=== PATIENT | female | born 1935 | race African-American/Black ===

== ENCOUNTER 2017-10-17 20:17 | Inpatient (IN) | payer MEDICARE, OTHER ==
--- NOTE | 2017-10-17 20:27 | ER Document Report ---
ED Medical Screen (RME) - General Chief Complaint: Weakness, Speech slurred- resolved Stated Complaint: WEAKNESS Time Seen by Provider: 10/17/17 20:25 Notes: 81-year-old female patient was talking on the phone when her left side became weak. She was having difficulty holding the phone. She noted that her speech seemed to get garbled. She dropped the phone and went and took an aspirin. The symptoms lasted maybe 1 or 2 minutes and then began to resolve. At this time she is back to baseline. She states she is seen enough people who had strokes to know what was happening and that she needed to come to the hospital. I have greeted and performed a rapid initial assessment of this patient. A comprehensive ED assessment and evaluation of the patient, analysis of test results and completion of the medical decision making process will be conducted by additional ED providers. TRAVEL OUTSIDE OF THE [place] IN LAST 30 DAYS: No - Related Data Allergies/Adverse Reactions: No Known Allergies Allergy (Unverified 10/17/17 20:25)
--- NOTE | 2017-10-17 20:42 | RADIOLOGY REPORT (SQ) ---
EXAM DESCRIPTION: CT HEAD WITHOUT COMPLETED DATE/TIME: 10/17/2017 8:34 pm REASON FOR STUDY: TIA COMPARISON: 05/09/2016. TECHNIQUE: Axial images acquired through the brain without intravenous contrast. Images reviewed wi th bone, brain and subdural windows. Additional sagittal and coronal reconstructions were generated. Images stored on PACS. All CT scanners at this facility use dose modulation, iterative reconstruction, and/or weight based d osing when appropriate to reduce radiation dose to as low as reasonably achievable (ALARA). [facility]: Dose Right [facility]: CareDose [facility]: Dose Right [facility]: Teradose 4D [facility]: Smart Lighter [employer] RADIATION DOSE: CT Rad equipment meets quality standard of care and radiation dose reduction techniq ues were employed. CTDIvol: 53.2 mGy. DLP: 937 mGy-cm. mGy. LIMITATIONS: None. FINDINGS: VENTRICLES: Prominent. CEREBRUM: No masses. No hemorrhage. No midline shift. Areas of low density in the white matter mos t likely due to chronic micro-vascular ischemic change. No evidence for acute infarction. CEREBELLUM: No masses. No hemorrhage. No alteration of density. No evidence for acute infarction. EXTRAAXIAL SPACES: Mild age-related involutional change. No fluid collections. No masses. ORBITS AND GLOBE: No intra- or extraconal masses. Normal contour of globe without masses. CALVARIUM: No fracture. PARANASAL SINUSES: No fluid or mucosal thickening. SOFT TISSUES: No mass or hematoma. OTHER: No other significant finding. IMPRESSION: MILD CHRONIC CHANGES OF ATROPHY AND MICROVASCULAR ISCHEMIA. NO ACUTE PROCESS. EVIDENCE OF ACUTE STROKE: NO. TECHNICAL DOCUMENTATION: JOB ID: [id number] Quality ID # [id number]: Final reports with documentation of one or more dose reduction techniques (e.g., Au tomated exposure control, adjustment of the mA and/or kV according to patient size, use of iterative reconstruction technique) 2010 [employer])- All Rights Reserved Reading location - IP/workstation name: [email or web address]
--- NOTE | 2017-10-17 21:03 | ER Document Report ---
ED Neuro Symptoms/Deficit - General Chief Complaint: Weakness, Speech slurred- resolved Stated Complaint: WEAKNESS Time Seen by Provider: 10/17/17 20:25 Notes: History of complain-81 years old pleasant female with a history of hypertension , was talking on the phone holding the phone on the left hand. She felt like a flush coming through the whole of her left side of the body, then she dropped the phone and then tried to grain picker the phone she could not coordinate and could not get the strength to grain picker and her speech was slurred, she kept the phone down before that asked the brother to come in and take her to the hospital. Took an aspirin and came to the ER. The symptoms lasted only about maximum 3 minutes and completely came around to herself. Currently feeling comfortable REVIEW OF SYSTEMS: CONSTITUTIONAL : Denies fever, chills, or sweats. Denies recent illness. EENT: Denies eye, ear, throat, or mouth pain or symptoms. Denies nasal or sinus congestion or discharge. Denies throat, tongue, or mouth swelling or difficulty swallowing. CARDIOVASCULAR: Denies chest pain. Denies palpitations or racing or irregular heart beat. Denies ankle edema. RESPIRATORY: Denies cough, cold, or chest congestion. Denies shortness of breath, difficulty breathing, or wheezing. GASTROINTESTINAL: Denies abdominal pain or distention. Denies nausea, vomiting , or diarrhea. Denies blood in vomitus, stools, or per rectum. Denies black, tarry stools. Denies constipation. GENITOURINARY: Denies difficulty urinating, painful urination, burning, frequency, blood in urine, or discharge. FEMALE GENITOURINARY: Denies vaginal bleeding, heavy or abnormal periods, irregular periods. Denies vaginal discharge or odor. MUSCULOSKELETAL: Denies back or neck pain or stiffness. Denies joint pain or swelling. SKIN: Denies rash, lesions or sores. HEMATOLOGIC : Denies easy bruising or bleeding. LYMPHATIC: Denies swollen, enlarged glands. NEUROLOGICAL: Denies confusion or altered mental status. Denies passing out or loss of consciousness. Denies dizziness or lightheadedness. Denies headache. Denies weakness or paralysis or loss of use of either side. Denies problems with gait or speech. Denies sensory loss, numbness, or tingling. Denies seizures. PSYCHIATRIC: Denies anxiety or stress. Denies depression, suicidal ideation, or homicidal ideation. ALL OTHER SYSTEMS REVIEWED AND NEGATIVE. PHYSICAL EXAMINATION: GENERAL: Well-appearing, well-nourished and in no acute distress. HEAD: Atraumatic, normocephalic. EYES: Pupils equal round and reactive to light, extraocular movements intact, conjunctiva are normal. ENT: Nares patent, oropharynx clear without exudates. Moist mucous membranes. NECK: Normal range of motion, supple without lymphadenopathy LUNGS: Breath sounds clear to auscultation bilaterally and equal. No wheezes rales or rhonchi. HEART: Regular rate and rhythm without murmurs ABDOMEN: Soft, nontender, nondistended abdomen. No guarding, no rebound. No masses appreciated. Female : deferred Musculoskeletal: Normal range of motion, no pitting or edema. No cyanosis. NEUROLOGICAL: Cranial nerves grossly intact. Normal speech, normal gait. Normal sensory, motor exams. No pronator drift, no cranial weakness noted. No focal neurological deficit. PSYCH: Normal mood, normal affect. SKIN: Warm, Dry, normal turgor, no rashes or lesions noted. Dictation was performed using [employer] voice recognition software TRAVEL OUTSIDE OF THE [place] IN LAST 30 DAYS: No - HPI Patient complains to provider of: Paresthesia, Speech Impairment, Weakness Onset: Just prior to arrival Awoke with symptoms: Yes Symptoms are: No: Constant, Intermittent episodes, Worse/persistent, Noted on awakening Duration: Better Quality of pain: denies: No pain, Achy, Burning, Cramping, Dull, Fullness, Pressure, Sharp, Stabbing, Throbbing, Other Severity: Mild Pain Level: 0 Context: denies: None, Insect bite, Tick bite, Falling, Head injury, Other Loss of consciousness: No: No loss of consciousness, Unsure, Dazed, Brief ( seconds), Prolonged (minutes), Still comatose Baseline Cognitive: Alert, oriented X 3. No: Alert but disoriented, Alert but confused, Poor alertness, Memory loss, Unknown Baseline Gait: Walks w/o assistance - Related Data Allergies/Adverse Reactions: No Known Allergies Allergy (Unverified 10/17/17 20:25) Past Medical History - General Information source: Patient - Social History Smoking Status: Never Smoker Frequency of alcohol use: None Drug Abuse: None Lives with: Family Family History: Reviewed & Not Pertinent - Medical History Medical History: Negative - Past Medical History Cardiac Medical History: Reports: Hx Hypertension Denies: None, Hx Atrial Fibrillation, Hx Congestive Heart Failure, Hx Coronary Artery Disease, Hx DVT, Hx Heart Attack, Hx Hypercholesterolemia, Hx Peripheral Vascular Disease, Hx Pulmonary Embolism, Hx Heart Murmur, Other Pulmonary Medical History: Denies: None, Hx Asthma, Hx Bronchitis, Hx COPD, Hx Pneumonia, Hx Intubation , Hx Respiratory Failure, Hx Sleep Apnea, Hx Tuberculosis, Other Review of Systems - Review of Systems Notes: As per history of complain Physical Exam - Vital signs Vitals: Temp Pulse Resp BP 98.8 F 51 L 16 209/66 H 10/17/17 20:26 10/17/17 20:26 10/17/17 20:26 10/17/17 20:26 Course - Re-evaluation Re-evalutation: 10/17/17 23:10 The case was discussed with Dr. Marsh and currently being admitted - Vital Signs Vital signs: Temp Pulse Resp BP Pulse Ox 98.8 F 51 L 16 209/66 H 10/17/17 20:26 10/17/17 20:26 10/17/17 20:26 10/17/17 20:26 - Laboratory Result Diagrams: 10/17/17 20:56 10/17/17 20:56 - Diagnostic Test Radiology reviewed: Reports reviewed - CT of the head as well as chest x-ray reported by radiologist was reviewed ED [employer]/Exc Criteria - Date/Time patient last known well: Date/Time: Not indicated due to complete resolution - Inclusion Criteria: 1: Patient presented to ED within 3 hours of acute ischemic stroke symptom onset ? 2: Did baseline CT exclude intracranial hemorrhage and/or other risk factors? 3: Is the age of the patient 18 years of age or greater? : If any of the above questions are answered "NO" then stop, patient is not a candidate for Alteplase, : If all of the above questions are answered "YES" then continue with Exclusion Criteria. - Exclusion Criteria: 1: Is there evidence of intracranial hemorrhage on baseline CT? 2: Is there suspicion of subarachnoid hemorrhage (even if CT negative)? 3: Is there a history of serious head trauma, recent previous stroke or DE within 3 months? 4: Does the patient have a clinical presentation consistent with DE or post-DE pericarditis? 5: Is there history of intracranial hemorrhage? 6: On repeated measurement is Systolic BP greater than 185mmHg or Diastolic BP greater that 110 mmHg and is aggressive treatment needed to reduce blood pressure to these limits (e.g. constant infusion of an anti-hypertensive)? 7: Did the patient awake with stroke symptoms? 8: Has the patient had a lumbar puncture or an arterial puncture at a non- compressile site within 7 days? 9: With in the last 14 days did the patient have surgery or major trauma? 10: Is the patient or less than 2 weeks? 11: Was there any active bleeding or acute trauma? 12: Does the patient have intracranial neoplasm, arteriovenous malformation or aneurysm? 13: Does the patient have abnormal glucose (less than 50 or greater than 400mg/ dl)? Record glucose in Comment. 14: Patient has rapidly improving symptoms at the time Alteplase is to be Administered. 15: Does the patient have any risks for bleeding, including but not limited to: a.: Current use of Coumadin with PT greater than 15 seconds or INR greater than 1.7. b.: Current use of Pradaxa (Dabigatran). c.: Heparin administereed within the past 48 hours and PTT elevated. d.: Platelet count less than 100,000/mm. e.: Major surgery or serious trauma within 14 days. f.: Gastrointestinal or gynecological urinary bleeding within 14 days. g.: Myocardial Infarction (DE) within 3 months. : If the answer to any of the above questions is "YES" then stop, the patient is not a candidate for Alteplase. : If the answer to all of the above questions is "NO" then the patient may be eligible for the Administration of Alteplase. : If the patient is noted to have seizure activity at onset of Stroke symptoms; Consult Neurologist for further evaluation. - The patient is: -: Included and is eligible to receive Alteplase. *Initiate bed placement at higher level of care* Reviewd risks & benefits of thrombolytic therapy: I have reviewed the risks and benefits of thrombolytic therapy with the patient and/or his/her family. -: Excluded and not eligible to receive Alteplase for the above exclusions. -: Excluded and not eligible to receive Alteplase for other reasons (specify in comments): - Diagnosis of TIA: -: Patient presented with transient symptoms that are now resolved and no other neurologic findings are currently present. List symptoms in comments. -: Patient is NOT a candidate for tPA. -: ____(put name in comment) has been consulted for admission and continued evaluation of risk factor assessment. Discharge - Discharge Clinical Impression: TIA (transient ischemic attack) Qualifiers: Transient cerebral ischemia type: unspecified Qualified Code(s): G45.9 - Transient cerebral ischemic attack, unspecified Condition: Fair Disposition: ADMITTED INPATIENT Admitting Provider: [facility] Unit Admitted: Telemetry Referrals: TANI MARSH MD [Primary Care Provider] - Follow up as needed
[2017-10-17 21:16] LABS: ABSOLUTE EOSINOPHILS # (AUTO) 0.2 10^3/uL (0.0-0.6); ABSOLUTE LYMPHOCYTES (AUTO) 2.5 10^3/uL (0.5-4.7); ABSOLUTE MONOCYTES (AUTO) 0.7 10^3/uL (0.1-1.4); ABSOLUTE NEUT (AUTO) 3.4 10^3/uL (1.7-8.2); BASOPHILS % (AUTO) 0.5 % (0-2); EOSINOPHILS % (AUTO) 2.5 % (0-6); HEMATOCRIT 34.6 % (36.0-47.0); HEMOGLOBIN 11.4 g/dL (12.0-15.5); LYMPHOCYTES % (AUTO) 35.9 % (13-45); MEAN CORPUSCULAR HEMOGLOBIN 28.3 pg (27.0-33.4); MEAN CORPUSCULAR HGB CONC 32.9 g/dL (32.0-36.0); MEAN CORPUSCULAR VOLUME 86 fl (80-97); MONOCYTES % (AUTO) 10.5 % (3-13); PLATELET COUNT 279 10^3/uL (150-450); RED BLOOD COUNT 4.02 10^6/uL (3.72-5.28); RED CELL DISTRIBUTION WIDTH 16.1 % (11.5-14.0); SEGMENTED NEUTROPHILS % (AUTO) 50.6 % (42-78); TOTAL CELLS COUNTED % (AUTO) 100 %; WHITE BLOOD COUNT 6.8 10^3/uL (4.0-10.5)
[2017-10-17 21:37] LABS: ALANINE AMINOTRANSFERASE 10 U/L (9-52); ALBUMIN 4.3 g/dL (3.5-5.0); ALKALINE PHOSPHATASE 52 U/L (38-126); ANION GAP 13 (5-19); ASPARTATE AMINO TRANSFERASE 22 U/L (14-36); BILIRUBIN,DIRECT 0.2 mg/dL (0.0-0.4); BILIRUBIN,TOTAL 0.2 mg/dL (0.2-1.3); BLOOD UREA NITROGEN 17 mg/dL (7-20); CALCIUM 10.1 mg/dL (8.4-10.2); CARBON DIOXIDE 26 mmol/L (22-30); CHLORIDE 104 mmol/L (98-107); CREATINE KINASE 124 U/L (30-135); GLUCOSE 100 mg/dL (75-110); POTASSIUM 3.8 mmol/L (3.6-5.0); SODIUM 142.5 mmol/L (137-145); TOTAL PROTEIN 8.1 g/dL (6.3-8.2)
[2017-10-17 21:47] LABS: CREATINE KINASE MB 1.18 ng/mL (<4.55)
[2017-10-17 21:51] LABS: TROPONIN I < 0.012 ng/mL
--- NOTE | 2017-10-17 21:51 | RADIOLOGY REPORT (SQ) ---
EXAM DESCRIPTION: CHEST SINGLE VIEW COMPLETED DATE/TIME: 10/17/2017 8:40 pm REASON FOR STUDY: TIA COMPARISON: 12/22/2014. EXAM PARAMETERS: NUMBER OF VIEWS: One view. TECHNIQUE: Single frontal radiographic view of the chest acquired. RADIATION DOSE: NA LIMITATIONS: None. FINDINGS: LUNGS AND PLEURA: No opacities, masses or pneumothorax. No pleural effusion. MEDIASTINUM AND HILAR STRUCTURES: No masses. Contour normal. HEART AND VASCULAR STRUCTURES: Mild cardiac enlargement. Normal vasculature. BONES: No acute findings. HARDWARE: None in the chest. OTHER: No other significant finding. IMPRESSION: STABLE MILD CARDIOMEGALY. NO ACUTE RADIOGRAPHIC FINDING IN THE CHEST. TECHNICAL DOCUMENTATION: JOB ID: [id number] [employer]- All Rights Reserved Reading location - IP/workstation name: [email or web address]
[2017-10-18 01:50] LABS: APPEARANCE,URINE CLEAR; BILIRUBIN,URINE NEGATIVE (NEGATIVE); COLOR,URINE STRAW; GLUCOSE, URINE NEGATIVE (NEGATIVE); KETONES,URINE NEGATIVE (NEGATIVE); LEUKOCYTE ESTERASE,URINE NEGATIVE (NEGATIVE); NITRITE,URINE NEGATIVE (NEGATIVE); PROTEIN,URINE 100 mg/dL (NEGATIVE); URINE SPECIFIC GRAVITY 1.005; UROBILINOGEN,URINE NEGATIVE mg/dL (<2.0)
[2017-10-18] MEDS: NORMAL SALINE 1000 ML 1,000 ML IV PRN ×2 (02:15→06:52)
--- NOTE | 2017-10-18 03:42 | RADIOLOGY REPORT (SQ) ---
EXAM DESCRIPTION: CTA HEAD CLINICAL HISTORY: 81 years Female, STROKE SYMPTOMS COMPARISON: None. TECHNIQUE: IV contrast. Multiplanar reformat. This exam was performed according to our departmental dose-optimization program, which includes automated exposure control, adjustment of the mA and/or kV according to patient size and/or use of iterative reconstruction technique. FINDINGS: CTA, head: Intact [employer] [place] [employer] [place]. Mild calcified atherosclerosis of the carotid siphon bilaterally. No occlusion, no aneurysm, and no additional vasculitides. IMPRESSION: No acute findings.
--- NOTE | 2017-10-18 03:42 | RADIOLOGY REPORT (SQ) ---
EXAM DESCRIPTION: CTA HEAD (accession [id number]), MRI HEAD COMBO (accession [id number]) CLINICAL HISTORY: 81 years Female, STROKE SYMPTOMS COMPARISON: None. TECHNIQUE: IV contrast. Multiplanar reformat. This exam was performed according to our departmental dose-optimization program, which includes automated exposure control, adjustment of the mA and/or kV according to patient size and/or use of iterative reconstruction technique. FINDINGS: CT, head without and with contrast: Mild white matter microangiopathy. Atherosclerosis. No enhancement abnormality. No hemorrhage or infarct. No mass, mass effect, or midline shift. Extra-axial structures appear otherwise grossly intact. CTA, head: Intact [place] [facility] [place]. Mild calcified atherosclerosis of the carotid siphon bilaterally. IMPRESSION: No acute findings.
[2017-10-18 04:32] LABS: ABSOLUTE BASOPHILS # (AUTO) 0.1 10^3/uL (0.0-0.2); ABSOLUTE EOSINOPHILS # (AUTO) 0.2 10^3/uL (0.0-0.6); ABSOLUTE LYMPHOCYTES (AUTO) 2.7 10^3/uL (0.5-4.7); ABSOLUTE MONOCYTES (AUTO) 0.6 10^3/uL (0.1-1.4); ABSOLUTE NEUT (AUTO) 3.7 10^3/uL (1.7-8.2); BASOPHILS % (AUTO) 0.8 % (0-2); EOSINOPHILS % (AUTO) 2.5 % (0-6); HEMATOCRIT 31.9 % (36.0-47.0); HEMOGLOBIN 10.7 g/dL (12.0-15.5); LYMPHOCYTES % (AUTO) 37.2 % (13-45); MEAN CORPUSCULAR HEMOGLOBIN 29.1 pg (27.0-33.4); MEAN CORPUSCULAR HGB CONC 33.7 g/dL (32.0-36.0); MEAN CORPUSCULAR VOLUME 87 fl (80-97); MONOCYTES % (AUTO) 8.9 % (3-13); PLATELET COUNT 230 10^3/uL (150-450); RED BLOOD COUNT 3.69 10^6/uL (3.72-5.28); RED CELL DISTRIBUTION WIDTH 16.2 % (11.5-14.0); SEGMENTED NEUTROPHILS % (AUTO) 50.6 % (42-78); TOTAL CELLS COUNTED % (AUTO) 100 %; WHITE BLOOD COUNT 7.3 10^3/uL (4.0-10.5)
[2017-10-18 04:53] LABS: ALANINE AMINOTRANSFERASE 24 U/L (9-52); ALBUMIN 3.8 g/dL (3.5-5.0); ALKALINE PHOSPHATASE 52 U/L (38-126); ANION GAP 10 (5-19); ASPARTATE AMINO TRANSFERASE 19 U/L (14-36); BILIRUBIN,DIRECT 0.3 mg/dL (0.0-0.4); BILIRUBIN,TOTAL 0.3 mg/dL (0.2-1.3); BLOOD UREA NITROGEN 13 mg/dL (7-20); CALCIUM 9.5 mg/dL (8.4-10.2); CARBON DIOXIDE 24 mmol/L (22-30); CHLORIDE 109 mmol/L (98-107); CREATINE KINASE 104 U/L (30-135); GLUCOSE 100 mg/dL (75-110); POTASSIUM 3.7 mmol/L (3.6-5.0); SODIUM 143.3 mmol/L (137-145); TOTAL PROTEIN 7.2 g/dL (6.3-8.2)
[2017-10-18 05:03] LABS: CREATINE KINASE MB 1.04 ng/mL (<4.55)
[2017-10-18 05:09] LABS: TROPONIN I < 0.012 ng/mL
--- NOTE | 2017-10-18 07:26 | EKG REPORT ---
SEVERITY:- ABNORMAL ECG - SINUS BRADYCARDIA FIRST DEGREE AV BLOCK PROBABLE ANTEROSEPTAL INFARCT, AGE INDETERM : Confirmed by: Cl Pena MD 18-Oct-2017 07:26:28
[2017-10-18] MEDS ORDERED: DEXTROSE 50%-WATER 25 GM/50 ML DISP.SYRIN IV PRN ×2 (07:29)
[2017-10-18] MEDS ORDERED: INSULIN LISPRO 100 UNIT/ML 3 ML VIAL SUBCUT PRN (07:29)
[2017-10-18] MEDS ORDERED: DEXTROSE 40% GEL 15 GM TUBE PO PRN ×2 (07:29)
[2017-10-18] MEDS ORDERED: GLUCAGON,HUMAN RECOMB 1 MG INJ IM PRN (07:29)
[2017-10-18] MEDS ORDERED: ATORVASTATIN CALCIUM 20 MG TABLET PO SCH ×2 (07:29)
--- NOTE | 2017-10-18 08:22 | PDOC H&P ---
History of Present Illness Admission Date/PCP: 10/17/17 23:47 TANI MARSH MD Patient complains of: Left-sided weakness History of Present Illness: NAREN TERRY is a 81 year old female This is a 81-year-old female with the history of the type 2 diabetes mellitus with recent A1c is 5.9 with the history of the hyperlipidemia with recent LDL is 79 and a history of congestive heart failure and history of dementia and arthritis and hypertension came to the emergency departmentWith a sudden onset of the left-sided weakness with unable to hold the cup in the whole left side feeling weird and not feeling any sensationsAnd emergency department patient initial CT of the head was negative and patient's other blood work was stable and ER physician thinks possible TIA and admitting for the stroke protocol in the hospital Overnight nurses notice the patient have a more left-sided little bit more weakness little bit slower speech and CT angiogram was done and a repeat CT scan of the head was done was all stable When I saw the patient patient is currently doing well alert awake and oriented patients move all 4 extremity denied any visual problem denied any headache denied any dizziness Patient with no focal neurological weakness at this point Patient's heart rate is running in the lower end patient is currently taking the beta-meagan metoprolol 50 mg twice a day Patient had a last echo was done in 2 years back was all stable within normal EF with some mild diastolic dysfunctions and MRI of the head was done in the past was all stable Patient have underlying mild dementia currently taking the Aricept Past Medical History Cardiac Medical History: Reports: Congestive Heart Failure, Hyperlipidema, Hypertension Denies: None, Atrial Fibrillation, Coronary Artery Disease, DVT, Myocardial Infarction, Peripheral Vascular Disease, Pulmonary Embolism, Heart Murmur, Other Pulmonary Medical History: Denies: None, Asthma, Bronchitis, Chronic Obstructive Pulmonary Disease (COPD ), Intubation, Pneumonia, Respiratory Failure, Sleep Apnea, Tuberculosis, Other Endocrine Medical History: Reports: Diabetes Mellitus Type 2 Renal/ Medical History: Reports: Chronic Kidney Disease GI Medical History: Reports: Gastroesophageal Reflux Disease Musculoskeltal Medical History: Reports: Arthritis Hematology: Reports: Anemia Past Surgical History Past Surgical History: Reports: Hysterectomy, Orthopedic Surgery Social History Lives with: Family Smoking Status: Never Smoker Frequency of Alcohol Use: None Hx Recreational Drug Use: No Hx Prescription Drug Abuse: No Family History Family History: Reviewed & Not Pertinent Parental Family History Reviewed: Yes Children Family History Reviewed: Yes Sibling(s) Family History Reviewed.: Yes Medication/Allergy Allergies/Adverse Reactions: No Known Allergies Allergy (Unverified 10/17/17 20:25) Review of Systems Constitutional: PRESENT: weakness. ABSENT: chills, fever(s), headache(s), weight gain, weight loss Eyes: ABSENT: visual disturbances Ears: ABSENT: hearing changes Cardiovascular: ABSENT: chest pain, dyspnea on exertion, edema, orthropnea, palpitations Respiratory: ABSENT: cough, hemoptysis Gastrointestinal: ABSENT: abdominal pain, constipation, diarrhea, hematemesis, hematochezia, nausea, vomiting Genitourinary: ABSENT: dysuria, hematuria Musculoskeletal: ABSENT: joint swelling Integumentary: ABSENT: rash, wounds Neurological: PRESENT: paresthesias, weakness. ABSENT: abnormal gait, abnormal speech, confusion, dizziness, focal weakness, syncope Psychiatric: ABSENT: anxiety, depression, homidical ideation, suicidal ideation Endocrine: ABSENT: cold intolerance, heat intolerance, menstrual abnormalities, polydipsia, polyuria Hematologic/Lymphatic: ABSENT: easy bleeding, easy bruising, lymphadenopathy Physical Exam Vital Signs: Temp Pulse Resp BP Pulse Ox 97.4 F 47 L 16 170/50 H 98 10/18/17 03:37 10/18/17 06:45 10/18/17 03:37 10/18/17 03:37 10/18/17 03:37 Intake & Output 10/17/17 10/18/17 10/19/17 06:59 06:59 06:59 Intake Total 1100 Output Total 300 Balance 800 Weight 76.1 kg General appearance: PRESENT: no acute distress, well-developed, well-nourished Head exam: PRESENT: atraumatic, normocephalic Eye exam: PRESENT: conjunctiva pink, EOMI, PERRLA. ABSENT: scleral icterus Ear exam: PRESENT: normal external ear exam Mouth exam: PRESENT: moist, tongue midline Neck exam: PRESENT: full ROM. ABSENT: carotid bruit, JVD, lymphadenopathy, thyromegaly Respiratory exam: PRESENT: clear to auscultation slava Cardiovascular exam: PRESENT: RRR. ABSENT: diastolic murmur, rubs, systolic murmur Pulses: PRESENT: normal dorsalis pedis pul, +2 pedal pulses bilateral Vascular exam: PRESENT: normal capillary refill GI/Abdominal exam: PRESENT: normal bowel sounds, soft. ABSENT: distended, guarding, mass, organolmegaly, rebound, tenderness Rectal exam: PRESENT: deferred Extremities exam: ABSENT: pedal edema Neurological exam: PRESENT: alert, awake, oriented to person, oriented to place , oriented to time, oriented to situation, reflexes normal, CN II-XII grossly intact. ABSENT: motor sensory deficit Psychiatric exam: PRESENT: appropriate affect, normal mood. ABSENT: homicidal ideation, suicidal ideation Skin exam: PRESENT: dry, intact, warm. ABSENT: cyanosis, rash Results Laboratory Results: 10/18/17 04:17 10/18/17 03:30 10/18/17 10/18/17 03:30 04:17 WBC 7.3 RBC 3.69 L Hgb 10.7 L Hct 31.9 L MCV 87 MCH 29.1 MCHC 33.7 RDW 16.2 H Plt Count 230 Seg Neutrophils % 50.6 Lymphocytes % 37.2 Monocytes % 8.9 Eosinophils % 2.5 Basophils % 0.8 Absolute Neutrophils 3.7 Absolute Lymphocytes 2.7 Absolute Monocytes 0.6 Absolute Eosinophils 0.2 Absolute Basophils 0.1 Sodium 143.3 Potassium 3.7 Chloride 109 H Carbon Dioxide 24 Anion Gap 10 BUN 13 Creatinine 0.83 Est GFR ( Amer) > 60 Est GFR (Non-Af Amer) > 60 Glucose 100 Calcium 9.5 Total Bilirubin 0.3 AST 19 ALT 24 Alkaline Phosphatase 52 Total Protein 7.2 Albumin 3.8 10/18/17 10/18/17 03:30 04:17 Creatine Kinase 104 CK-MB (CK-2) 1.04 Troponin I < 0.012 Impressions: Chest X-Ray 10/17/17 00:00 IMPRESSION: STABLE MILD CARDIOMEGALY. NO ACUTE RADIOGRAPHIC FINDING IN THE CHEST. Head CT 10/17/17 20:25 IMPRESSION: MILD CHRONIC CHANGES OF ATROPHY AND MICROVASCULAR ISCHEMIA. NO ACUTE PROCESS. EVIDENCE OF ACUTE STROKE: NO. Head MRI 10/17/17 23:16 IMPRESSION: No acute findings. Head CTA 10/18/17 00:00 IMPRESSION: No acute findings. Assessment & Plan - Diagnosis (1) Acute cerebrovascular accident Is this a current diagnosis for this admission?: Yes Plan: Currently putting the patient on the stroke protocol continues aspirin Plavix and high-dose of statin and get the MRI of the head today (2) Hypertension Qualifiers: Hypertension type: essential hypertension Qualified Code(s): I10 - Essential (primary) hypertension Is this a current diagnosis for this admission?: Yes Plan: Due to the acute events of the stroke hold the blood pressure medications (3) Hyperlipidemia Qualifiers: Hyperlipidemia type: unspecified Qualified Code(s): E78.5 - Hyperlipidemia , unspecified Is this a current diagnosis for this admission?: Yes Plan: Patient's taking the simvastatin at home will increase the Lipitor 80 mg p.o. daily (4) Congestive heart failure Qualifiers: Heart failure type: diastolic Heart failure chronicity: chronic Qualified Code(s): I50.32 - Chronic diastolic (congestive) heart failure Is this a current diagnosis for this admission?: Yes Plan: Scheduled echocardiogram today (5) Bradycardia Is this a current diagnosis for this admission?: Yes Plan: We hold the beta-meagan consult the cardiology (6) Dementia Qualifiers: Dementia type: unspecified type Dementia behavioral disturbance: without behavioral disturbance Qualified Code(s): F03.90 - Unspecified dementia without behavioral disturbance Is this a current diagnosis for this admission?: Yes Plan: Continues to Aricept (7) Type 2 diabetes mellitus Qualifiers: Diabetes mellitus advisory application developer insulin use: without advisory application developer use Is this a current diagnosis for this admission?: Yes Plan: Continues to sliding scaleSince recent A1c is 5.9 - Time Time Spent: 50 to 70 Minutes Medications reviewed and adjusted accordingly: Yes Anticipated discharge: Home Within: Other - Inpatient Certification Medical Necessity: Need Close Monitoring Due to Risk of Patient Decompensation, Need For IV Fluids Post Hospital Care: D/C Grain Handler Documentation - Plan Summary Plan Summary: Continues with the stroke protocol discussed with the patient's family patient' s niece and her sister regarding the patient's current conditions continue to monitor for next 48 hours for the possible of the stroke patient is currently maximized treatments
[2017-10-18] MEDS: CLOPIDOGREL BISULFATE 75 MG TABLET PO SCH (09:39)
[2017-10-18] MEDS: FAMOTIDINE 20 MG TABLET PO SCH ×2 (09:39→22:35)
[2017-10-18] MEDS: ENOXAPARIN SODIUM INJ 40 MG/0.4 ML DISP.SYRIN SUBCUT SCH (09:40)
[2017-10-18] MEDS ORDERED: ASPIRIN 81 MG TABLET, ENT COATED PO SCH (10:00)
--- NOTE | 2017-10-18 10:54 | RADIOLOGY REPORT (SQ) ---
EXAM DESCRIPTION: MRI HEAD WITHOUT; MRA HEAD WITHOUT COMPLETED DATE/TIME: 10/18/2017 9:25 am REASON FOR STUDY: tia COMPARISON: CT brain 10/18/2017, 10/17/2017 MRI brain 05/09/2016 TECHNIQUE: Multiplanar imaging includes non-contrasted T1, T2, FLAIR, and diffusion with ADC map seq uences. Images stored on PACS. 3D [place] MRA exam was performed without contrast. Source data and maximum intensity projected images were reviewed. LIMITATIONS: Rapid sequences were used, to minimize motion artifact. There is ferromagnetic artifac t over the inferior frontal and anterior temporal regions on some of the pulse sequences from [employer] work FINDINGS: ANATOMY: No developmental anomalies. Normal vascular flow voids. Pituitary fossa normal. CSF SPACES: Normal in size and contour. No hemorrhage. CEREBRUM: Sulci and gyri normal in size and contour. Mild to moderate spotty increased bifrontal and biparietal white matter signal on FLAIR imaging from chronic small vessel ischemic change. No evide nce of acute hemorrhage, mass, or extraaxial fluid collection. No MRI evidence of acute ischemic sha nge on diffusion-weighted images. POSTERIOR FOSSA: Minimal stable pontine small vessel ischemic change, with increased signal on FLAIR images. No acute hemorrhage. No edema, masses or mass effect. Internal auditory canals, cerebello-po ntine angles, mastoids normal. DIFFUSION IMAGING: Negative for acute or sub-acute infarction. ORBITS: No masses. Globes post cataract surgery. PARANASAL SINUSES: No fluid levels. Mucosa normal. [place] MRA: NO [place] STENOSIS, VASCULAR MALFORMATION, OR ANEURYSM. No other si gnificant finding. IMPRESSION: MILD SMALL VESSEL ISCHEMIC CHANGE IN THE RIVKA AND HEMISPHERIC WHITE MATTER, CHRONIC. NO MR EVIDENCE OF ACUTE ISCHEMIC CHANGE UNREMARKABLE [place] MRA EXAM. EVIDENCE OF ACUTE STROKE: NO TECHNICAL DOCUMENTATION: JOB ID: [id number] [employer]- All Rights Reserved Reading location - IP/workstation name: [email or web address]
--- NOTE | 2017-10-18 10:54 | RADIOLOGY REPORT (SQ) ---
EXAM DESCRIPTION: MRI HEAD WITHOUT; MRA HEAD WITHOUT COMPLETED DATE/TIME: 10/18/2017 9:25 am REASON FOR STUDY: tia COMPARISON: CT brain 10/18/2017, 10/17/2017 MRI brain 05/09/2016 TECHNIQUE: Multiplanar imaging includes non-contrasted T1, T2, FLAIR, and diffusion with ADC map seq uences. Images stored on PACS. 3D [place] MRA exam was performed without contrast. Source data and maximum intensity projected images were reviewed. LIMITATIONS: Rapid sequences were used, to minimize motion artifact. There is ferromagnetic artifac t over the inferior frontal and anterior temporal regions on some of the pulse sequences from [employer] work FINDINGS: ANATOMY: No developmental anomalies. Normal vascular flow voids. Pituitary fossa normal. CSF SPACES: Normal in size and contour. No hemorrhage. CEREBRUM: Sulci and gyri normal in size and contour. Mild to moderate spotty increased bifrontal and biparietal white matter signal on FLAIR imaging from chronic small vessel ischemic change. No evide nce of acute hemorrhage, mass, or extraaxial fluid collection. No MRI evidence of acute ischemic sha nge on diffusion-weighted images. POSTERIOR FOSSA: Minimal stable pontine small vessel ischemic change, with increased signal on FLAIR images. No acute hemorrhage. No edema, masses or mass effect. Internal auditory canals, cerebello-po ntine angles, mastoids normal. DIFFUSION IMAGING: Negative for acute or sub-acute infarction. ORBITS: No masses. Globes post cataract surgery. PARANASAL SINUSES: No fluid levels. Mucosa normal. [place] MRA: NO [place] STENOSIS, VASCULAR MALFORMATION, OR ANEURYSM. No other si gnificant finding. IMPRESSION: MILD SMALL VESSEL ISCHEMIC CHANGE IN THE RIVKA AND HEMISPHERIC WHITE MATTER, CHRONIC. NO MR EVIDENCE OF ACUTE ISCHEMIC CHANGE UNREMARKABLE [place] MRA EXAM. EVIDENCE OF ACUTE STROKE: NO TECHNICAL DOCUMENTATION: JOB ID: [id number] [employer]- All Rights Reserved Reading location - IP/workstation name: [email or web address]
[2017-10-18 11:18] LABS: CREATINE KINASE MB 0.93 ng/mL (<4.55)
[2017-10-18 11:24] LABS: TROPONIN I < 0.012 ng/mL
--- NOTE | 2017-10-18 13:57 | EKG REPORT ---
SEVERITY:- ABNORMAL ECG - SINUS BRADYCARDIA ATRIAL PREMATURE COMPLEX FIRST DEGREE AV BLOCK MINIMAL ST DEPRESSION, DIFFUSE LEADS : Confirmed by: Cl Pena MD 18-Oct-2017 13:56:54
--- NOTE | 2017-10-18 16:01 | RADIOLOGY REPORT (SQ) ---
EXAM DESCRIPTION: CAROTID DOPPLER COMPLETED DATE/TIME: 10/18/2017 3:38 pm REASON FOR STUDY: tia COMPARISON: Carotid Doppler 05/23/2016 CT brain 10/17/2017, 10/18/2017 MRI brain MRA exam [place] 10/18/2017 TECHNIQUE: Grayscale ultrasound, Doppler velocity and spectra, and color Doppler images acquired of the extra-cranial carotid and vertebral arteries. Images stored on PACS. LIMITATIONS: None. FINDINGS: RIGHT CAROTID CCA Velocities: Within normal limits. ICA Velocities Peak systolic 0.63 m/s. End diastolic 0.8 m/s. Proximal ICA/CCA peak systolic ratio 1.2 separate. Mixed calcific and noncalcific plaque at the carotid bifurcation. No flow significant stenosis by ve locity criteria, right proximal ICA. LEFT CAROTID CCA Velocities: Within normal limits. ICA Velocities Peak systolic 0.92 m/s. End diastolic 0.15 m/s. Proximal ICA/CCA peak systolic ratio 2.2. Moderate mixed calcific and noncalcific plaque at the left carotid bifurcation is present with less t zamor[place] 50% stenosis by direct vessel diameter measurement and velocity. VERTEBRAL ARTERIES: Antegrade flow. Normal waveforms. SUBCLAVIAN ARTERIES: Not evaluated OTHER: No other significant finding. IMPRESSION: No flow significant stenosis at the carotid bifurcations. Antegrade pulsatile vertebral artery flow bilaterally. COMMENT: Quality ID #[id number]: Velocity criteria are extrapolated from the diameter data as defined by [place] Society of Radiologists in Ultrasound Consensus Conference. Radiology 2003: 229; 340-346. TECHNICAL DOCUMENTATION: JOB ID: [id number] [employer]- All Rights Reserved Reading location - IP/workstation name: [facility]
[2017-10-18 17:08] LABS: CREATINE KINASE MB 0.87 ng/mL (<4.55)
[2017-10-18 17:09] LABS: TROPONIN I < 0.012 ng/mL
[2017-10-18] MEDS: ACETAMINOPHEN 325 MG TABLET PO PRN (18:28)
--- NOTE | 2017-10-18 18:38 | XCELERA REPORT ---
[address] [address] Transthoracic Echocardiogram Report Name: NAREN TERRY Age: 81 yrs Gender: Female : 1935 Patient Status: Inpatient Patient Location: [address] [place] [address] Study Date: 10/18/2017 02:28 PM Height: 64 in Weight: 168 lb BSA: 1.8 m2 Procedure: A complete two-dimensional transthoracic echocardiogram was performed (2D, M-mode, spectral and color flow Doppler). The study was technically adequate with some images being suboptimal in quality. Reason For Study: tia Ordering Physician: TANI MARSH Performed By: Lashay Miller Interpretation Summary The left ventricular ejection fraction is normal. Doppler measurements suggest pseudonormalized left ventricular relaxation, which is associated with grade II/IV or mild to moderate diastolic dysfunction There is mild concentric left ventricular hypertrophy. The left ventricle is grossly normal size. Not all wall segments were well visualized. The right ventricle is grossly normal size. The right ventricular systolic function is normal. The right atrium is normal in size Borderline left atrial enlargement. There is a moderate amount of mitral regurgitation There is no mitral valve stenosis. There is a trace amount of aortic regurgitation There is no aortic valve stenosis There is a mild amount of tricuspid regurgitation There is mild to moderate pulmonary hypertension by echo Right ventricular systolic pressure is estimated to be elevated at 40- 50mmHg. The aortic root is not well visualized but is probably normal size. The inferior vena cava appeared normal and decreased < 50% with respiration (RAP 10-15 mmHg) There is no pericardial effusion. No definite cardiac source of CVA/TIA noted on this particular trans- thoracic study. Consider NA if clinically indicated. May consider mobile cardiac telemetry monitoring (MCT) for ruling out transient AFIB. MMode/2D Measurements & Calculations RVDd: 3.3 cm LVIDd: 4.7 cm FS: 40.6 % Ao root diam: 2.4 cm IVSd: 0.99 cm LVIDs: 2.8 cm EDV(Teich): 103.6 ml LVPWd: 0.99 cm ESV(Teich): 29.7 ml Ao root area: 4.7 cm2 EF(Teich): 71.3 % LA dimension: 3.4 cm Doppler Measurements & Calculations MV E max bebe: MV P1/2t max bebe: Ao V2 max: LV V1 max P.0 cm/sec 113.0 cm/sec 186.8 cm/sec 6.7 mmHg MV A max bebe: MV P1/2t: 86.7 msec Ao max PG: LV V1 max: 83.4 cm/sec 14.0 mmHg 129.3 cm/sec MV E/A: 1.3 MVA(P1/2t): 2.5 cm2 MV dec slope: 381.7 cm/sec2 MV dec time: 0.28 sec PA V2 max: TR max bebe: 109.6 cm/sec 293.2 cm/sec PA max PG: TR max P.4 mmHg 4.8 mmHg Left Ventricle The left ventricle is grossly normal size. There is mild concentric left ventricular hypertrophy. The left ventricular ejection fraction is normal. Doppler measurements suggest pseudonormalized left ventricular relaxation, which is associated with grade II/IV or mild to moderate diastolic dysfunction. Not all wall segments were well visualized. Right Ventricle The right ventricle is grossly normal size. There is normal right ventricular wall thickness. The right ventricular systolic function is normal. Atria The right atrium is normal in size. Borderline left atrial enlargement. Interarterial septum not well visualized and not well dopplered. Cannot comment on ASD/PFO presence. Mitral Valve The mitral valve is grossly normal. There is no mitral valve stenosis. There is a moderate amount of mitral regurgitation. Aortic Valve The aortic valve is mildly calcified. The aortic valve is trileaflet. There is no aortic valve stenosis. There is a trace amount of aortic regurgitation. Tricuspid Valve The tricuspid valve is not well visualized, but is grossly normal. There is no tricuspid stenosis. There is a mild amount of tricuspid regurgitation. There is mild to moderate pulmonary hypertension by echo. Right ventricular systolic pressure is estimated to be elevated at 40-50mmHg. Pulmonic Valve The pulmonic valve is not well visualized. Great Vessels The aortic root is not well visualized but is probably normal size. The inferior vena cava appeared normal and decreased < 50% with respiration (RAP 10-15 mmHg). Effusions There is no pericardial effusion. Incidental Findings No definite cardiac source of CVA/TIA noted on this particular trans- thoracic study. Consider NA if clinically indicated. May consider mobile cardiac telemetry monitoring (MCT) for ruling out transient AFIB. : TANI MARSH > Alejandro Zheng
[2017-10-18] MEDS ORDERED: ONDANSETRON HCL INJ/PF 4 MG/2 ML SDV ONE (19:20)
--- NOTE | 2017-10-18 20:09 | PDOC CONSULTATION ---
Consultation Consult Date: 10/18/17 Attending physician:: TANI PEDERSON Consult reason:: Transient ischemic attack, bradycardia History of Present Illness Admission Date/PCP: 10/17/17 23:47 TANI PEDERSON MD Patient complains of: Transient ischemic attack, speech difficulty History of Present Illness: NAREN TERRY is a 81 year old female with the history of the type 2 diabetes mellitus with recent A1c is 5.9 with the history of the hyperlipidemia with recent LDL is 79 and a history of congestive heart failure and history of dementia and arthritis and hypertension came to the emergency departmentWith a sudden onset of the left-sided weakness with unable to hold the cup in the whole left side feeling weird and not feeling any sensations. And emergency department patient initial CT of the head was negative and patient's other blood work was stable and ER physician thinks possible TIA and admitting for the stroke protocol in the hospital Overnight nurses notice the patient have a more left-sided little bit more weakness little bit slower speech and CT angiogram was done and a repeat CT scan of the head was done was all stable When I saw the patient patient is currently doing well alert awake and oriented patients move all 4 extremity denied any visual problem denied any headache denied any dizziness Patient with no focal neurological weakness at this point Patient's heart rate is running in the lower end patient is currently taking the beta-meagan metoprolol 50 mg twice a day Patient had a last echo was done in 2 years back was all stable within normal EF with some mild diastolic dysfunctions and MRI of the head was done in the past was all stable Patient have underlying mild dementia currently taking the Aricept. This history obtained by Dr. Pederson was reviewed and confirmed with the patient. Patient denied any chest pain. She denied any palpitations, syncope, near syncope. Patient denied any history of seizure disorder. Patient claims that he had sudden onset episodes of left upper extremity weakness and speech difficulty where her speech got jumbled up. This deficit was transient and patient recovered quite quickly. Other evaluation performed were reviewed. This morning on telemetry monitoring patient was noted to have heart rate in the high 40s and low 50s with occasional to frequent ventricular ectopy. Patient's medications were reviewed. Past Medical History Cardiac Medical History: Reports: Congestive Heart Failure, Hyperlipidema, Hypertension Denies: None, Atrial Fibrillation, Coronary Artery Disease, DVT, Myocardial Infarction, Peripheral Vascular Disease, Pulmonary Embolism, Heart Murmur, Other Pulmonary Medical History: Denies: None, Asthma, Bronchitis, Chronic Obstructive Pulmonary Disease (COPD ), Intubation, Pneumonia, Respiratory Failure, Sleep Apnea, Tuberculosis, Other Endocrine Medical History: Reports: Diabetes Mellitus Type 2 Renal/ Medical History: Reports: Chronic Kidney Disease GI Medical History: Reports: Gastroesophageal Reflux Disease Musculoskeltal Medical History: Reports: Arthritis Hematology: Reports: Anemia Past Surgical History Past Surgical History: Reports: Hysterectomy, Orthopedic Surgery Social History Information Source: Patient Lives with: Family Smoking Status: Never Smoker Frequency of Alcohol Use: None Hx Recreational Drug Use: No Hx Prescription Drug Abuse: No - Advance Directive Resuscitation Status: Full Code Surrogate healthcare decision maker:: Patient's daughter is the surrogate decision-maker Family History Family History: DM, Hypertension Parental Family History Reviewed: Yes Children Family History Reviewed: Yes Sibling(s) Family History Reviewed.: Yes Medication/Allergy Home Medications: Bisacodyl [Dulcolax 5 Mg Tablet] 5 mg PO DAILYP PRN 10/18/17 Celecoxib [Celebrex 200 mg Capsule] 200 mg PO DAILY MDD STOP DATE 11/22/1710/18 Donepezil HCl [Aricept] 5 mg PO QHS 10/18/17 Furosemide [Lasix 20 mg Tablet] 20 mg PO DAILY 10/18/17 Levocetirizine Dihydrochloride [Xyzal] 5 mg PO QPM 10/18/17 Metoprolol Tartrate [Lopressor 50 mg Tablet] 50 mg PO Q12 10/18/17 Nifedipine [Nifedipine ER] 30 mg PO Q12 10/18/17 Omeprazole 20 mg PO DAILY 10/18/17 Simvastatin [Zocor 80 mg Tablet] 80 mg PO QHS 10/18/17 Sitagliptin Phosphate [Januvia] 100 mg PO DAILY 10/18/17 Telmisartan [Micardis 20 mg Tablet] 20 mg PO DAILY 10/18/17 Zolpidem Tartrate [Ambien 5 mg Tablet] 5 mg PO QHS 10/18/17 Allergies/Adverse Reactions: No Known Allergies Allergy (Unverified 10/17/17 20:25) Review of Systems Review of Systems: Please see history of present illness and past medical history as wall. Constitutional: No fever or chills reported. Head : No recent chronic headaches, recent head injury. Eyes: No recent eye pain, diplopia, redness, discharge, acute visual changes. Ears: No recent chronic ear pain, acute hearing loss, ear discharge. Oral cavity: No recent ulcerations, bleeding, oral cavity discomfort. Neck: No recent acute neck pain reported. Hematologic: No recent easy bruising or bleeding or hematologic malignancy reported. Lymphatic: No recent lymphatic malignancy, chronic lymphadenopathy reported yet Cardiovascular system review: See history of present illness. Respiratory system review: No recent chronic cough, hemoptysis, blood clots in the lungs reported. Mild Shortness of breath on exertion Gastrointestinal system review: Negative for any recent acute or chronic abdominal pain, hematemesis, melena, recent change in bowel habits. Genitourinary system review: No recent acute or chronic hematuria, flank pain, UTI etc. reported. Skin system review: Negative for any recent abnormal bruising, no rash, no pruritus reported. Neurologic: No prior history of strokes, mini strokes, seizure disorder. Recent admission with TIA. History of dementia. Psychologic: No history of major psychosis or major depression reported. Musculoskeletal: Minor aches and pains reported. No acute joint swelling reported. Endocrine: No recent polyuria, polydipsia, recent heat or cold intolerance. Physical Exam Vital Signs: Temp Pulse Resp BP Pulse Ox 97.4 F 63 18 164/56 H 98 10/18/17 15:13 10/18/17 19:00 10/18/17 16:00 10/18/17 16:00 10/18/17 16:00 Intake & Output 10/17/17 10/18/17 10/19/17 06:59 06:59 06:59 Intake Total 1100 1124 Output Total 300 900 Balance 800 224 Weight 76.1 kg Exam: GENERAL: well-nourished and in no acute distress. Alert and oriented x3 HEAD: Atraumatic, normocephalic. EYES: Pupils equal round and reactive to light, extraocular movements intact, sclera anicteric, conjunctiva are normal. ENT: TMs normal, nares patent, oropharynx clear without exudates. Moist mucous membranes. No oral ulcerations or bleeding gums noted NECK: supple without lymphadenopathy. Trachea is central. No cervical or axillary lymphadenopathy noted. Carotids are 2+, JVD WNL LUNGS: Respiration seems nonlabored, no significant accessory muscle action noted. Breath sounds clear to auscultation bilaterally and equal noted. No wheezes rales or rhonchi noted. No significant dullness noted on percussion. CHEST: Palpation of the chest wall shows no significant chest wall tenderness. No other significant abnormalities noted. 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 ABDOMEN: Soft, no significant tenderness appreciated, normoactive bowel sounds. No guarding, no rebound. No rigidity noted . No masses appreciated. EXTREMITIES: Pedal pulses are 1-2+, no calf tenderness noted. No clubbing or cyanosis. negative pedal edema noted NEUROLOGICAL: Focused neurological exam showed no significant neurologic deficit. Normal speech, no focal weakness appreciated. PSYCH: Normal mood, normal affect. Judgment and insight within normal limits. SKIN: No significant ecchymosis, skin is noted to be warm. MUSCULOSKELETAL EXAM: No significant acute joint swelling noted. Results Laboratory Results: 10/18/17 04:17 10/18/17 03:30 10/18/17 10/18/17 03:30 04:17 WBC 7.3 RBC 3.69 L Hgb 10.7 L Hct 31.9 L MCV 87 MCH 29.1 MCHC 33.7 RDW 16.2 H Plt Count 230 Seg Neutrophils % 50.6 Lymphocytes % 37.2 Monocytes % 8.9 Eosinophils % 2.5 Basophils % 0.8 Absolute Neutrophils 3.7 Absolute Lymphocytes 2.7 Absolute Monocytes 0.6 Absolute Eosinophils 0.2 Absolute Basophils 0.1 Sodium 143.3 Potassium 3.7 Chloride 109 H Carbon Dioxide 24 Anion Gap 10 BUN 13 Creatinine 0.83 Est GFR ( Amer) > 60 Est GFR (Non-Af Amer) > 60 Glucose 100 Calcium 9.5 Total Bilirubin 0.3 AST 19 ALT 24 Alkaline Phosphatase 52 Total Protein 7.2 Albumin 3.8 10/18/17 10/18/17 10/18/17 03:30 04:17 10:39 Creatine Kinase 104 100 CK-MB (CK-2) 1.04 Troponin I < 0.012 10/18/17 10/18/17 10/18/17 10:39 16:20 16:20 Creatine Kinase 100 CK-MB (CK-2) 0.93 0.87 Troponin I < 0.012 < 0.012 EKG Comments: Sinus rhythm with minor nonspecific T-wave changes. Occasional APCs noted Impressions: Chest X-Ray 10/17/17 00:00 IMPRESSION: STABLE MILD CARDIOMEGALY. NO ACUTE RADIOGRAPHIC FINDING IN THE CHEST. Head CT 10/17/17 20:25 IMPRESSION: MILD CHRONIC CHANGES OF ATROPHY AND MICROVASCULAR ISCHEMIA. NO ACUTE PROCESS. EVIDENCE OF ACUTE STROKE: NO. Brain MRI with MRA 10/17/17 23:16 IMPRESSION: MILD SMALL VESSEL ISCHEMIC CHANGE IN THE RIVKA AND HEMISPHERIC WHITE MATTER, CHRONIC. NO MR EVIDENCE OF ACUTE ISCHEMIC CHANGE UNREMARKABLE [place] MRA EXAM. EVIDENCE OF ACUTE STROKE: NO Carotid Doppler Study 10/18/17 00:00 IMPRESSION: No flow significant stenosis at the carotid bifurcations. Antegrade pulsatile vertebral artery flow bilaterally. Head CTA 10/18/17 00:00 IMPRESSION: No acute findings. Head MRI 10/18/17 00:00 IMPRESSION: MILD SMALL VESSEL ISCHEMIC CHANGE IN THE RIV[place] AND HEMISPHERIC WHITE MATTER, CHRONIC. NO MR EVIDENCE OF ACUTE ISCHEMIC CHANGE UNREMARKABLE [place] MRA EXAM. EVIDENCE OF ACUTE STROKE: NO Assessment & Plan - Diagnosis (1) TIA (transient ischemic attack) Qualifiers: Transient cerebral ischemia type: unspecified Qualified Code(s): G45.9 - Transient cerebral ischemic attack, unspecified Is this a current diagnosis for this admission?: Yes (2) Bradycardia Is this a current diagnosis for this admission?: Yes (3) Dementia Qualifiers: Dementia type: unspecified type Dementia behavioral disturbance: without behavioral disturbance Qualified Code(s): F03.90 - Unspecified dementia without behavioral disturbance Is this a current diagnosis for this admission?: Yes (4) Hyperlipidemia Qualifiers: Hyperlipidemia type: unspecified Qualified Code(s): E78.5 - Hyperlipidemia , unspecified Is this a current diagnosis for this admission?: Yes (5) Hypertension Qualifiers: Hypertension type: essential hypertension Qualified Code(s): I10 - Essential (primary) hypertension Is this a current diagnosis for this admission?: Yes (6) Type 2 diabetes mellitus 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 Exact etiology of TIA not clear but includes cardiac dysrhythmia, micro emboli from carotid vessels, transient atrial fibrillation, transient hypoglycemia, severe hypertension or transient hypotension, transient hypoxemia etc. At this point agree with cardiac monitoring. Agree with lowering dose of beta-meagan. Would recommend event monitoring as an outpatient. 2D echo results reviewed. Carotid imaging and brain imaging studies were all reviewed. Bradycardia: Patient was noted to have mild bradycardia. Currently asymptomatic. Need to observe overnight again. Will consider event monitoring as an outpatient. Dementia: Currently stable. May consider switching patient from Aricept to Namenda. Hyperlipidemia: Currently is stable. Continue atorvastatin at current dose. Type 2 diabetes: Consider checking a glycohemoglobin to make sure patient is not having intermittent transient hypoglycemia. - Time Time Spent: 30 to 50 Minutes - CODE STATUS was discussed, patient remains full code. Surrogate decision-maker unchanged. Multiple medical problems were addressed. More than 50% of the time spent coordinating care, discussing management plans with involved caregivers. Management plans discussed with involved personnels. Medical decision making was of moderate to high complexity , patient's has multiple comorbidities. As usual I thank Dr. Pederson very much for the kind referral. Medications reviewed and adjusted accordingly: Yes
[2017-10-18] MEDS ORDERED: ONDANSETRON HCL INJ/PF 4 MG/2 ML SDV IV PRN (20:28)
--- NOTE | 2017-10-18 20:44 | RADIOLOGY REPORT (SQ) ---
EXAM DESCRIPTION: CT ABD/PELVIS NO ORAL OR IV COMPLETED DATE/TIME: 10/18/2017 8:17 pm REASON FOR STUDY: left sided abdominal pain COMPARISON: None. TECHNIQUE: CT scan of the abdomen and pelvis performed without intravenous or oral contrast. Images reviewed with lung, soft tissue, and bone windows. Reconstructed coronal and sagittal MPR images revi ewed. All images stored on PACS. All CT scanners at this facility use dose modulation, iterative reconstruction, and/or weight based d osing when appropriate to reduce radiation dose to as low as reasonably achievable (ALARA). [facility]: Dose Right [facility]: CareDose [facility]: Dose Right [facility]: Teradose 4D [facility]: Smart [employer] Global RADIATION DOSE: CT Rad equipment meets quality standard of care and radiation dose reduction techniq ues were employed. CTDIvol: 8.1 mGy. DLP: 412 mGy-cm.mGy. LIMITATIONS: None. FINDINGS: LOWER CHEST: No significant findings. No nodules or infiltrates. NON-CONTRASTED LIVER, SPLEEN, ADRENALS: Evaluation limited by lack of IV contrast. No identified sign ificant masses. PANCREAS: No masses. No peripancreatic inflammatory changes. GALLBLADDER: Contrast in the gallbladder. RIGHT KIDNEY AND URETER: No suspicious masses. Assessment limited by lack of IV contrast. No signif icant calcifications. No hydronephrosis. Contrast in the collecting system. LEFT KIDNEY AND URETER: No suspicious masses. Assessment limited by lack of IV contrast. No signifi cant calcifications. No hydronephrosis. Contrast in the collecting system. AORTA AND RETROPERITONEUM: No aneurysm. No retroperitoneal masses or adenopathy. BOWEL AND PERITONEAL CAVITY: No obvious masses or inflammatory changes. No free fluid. APPENDIX: Normal. PELVIS, BLADDER, AND ABDOMINAL WALL:Contrast in the bladder. BONES: Degenerative changes. OTHER: No other significant finding. IMPRESSION: NO SIGNIFICANT OR ACUTE PROCESS IN THE ABDOMEN OR PELVIS. COMMENT: Quality ID # [id number]: Final reports with documentation of one or more dose reduction techniques (e.g., Automated exposure control, adjustment of the mA and/or kV according to patient size, use of iterative reconstruction technique) TECHNICAL DOCUMENTATION: JOB ID: [id number] [employer]- All Rights Reserved Reading location - IP/workstation name: [email or web address]
[2017-10-18] MEDS ORDERED: MAG HYDROX/AL HYDROX/SIMETH SUSP 30 ML UDCUP PO PRN (21:55)
[2017-10-18] MEDS ORDERED: ATORVASTATIN CALCIUM 40 MG TABLET PO SCH (22:00)
[2017-10-18] MEDS ORDERED: ACETAMINOPHEN 325 MG TABLET PO ONE (22:30)
[2017-10-18] MEDS: DONEPEZIL HCL 5 MG TABLET PO SCH (22:35)
[2017-10-19] MEDS ORDERED: POLYETHYLENE GLYCOL 3350 POWDER 17 GM/1 PACKET PO PRN (00:13)
[2017-10-19] MEDS ORDERED: POLYETHYLENE GLYCOL 3350 POWDER 17 GM/1 PACKET PO ONE (00:15)
[2017-10-19] MEDS: NORMAL SALINE 1000 ML 1,000 ML IV PRN ×2 (02:40→23:09)
[2017-10-19 05:07] LABS: ABSOLUTE LYMPHOCYTES (AUTO) 1.5 10^3/uL (0.5-4.7); ABSOLUTE MONOCYTES (AUTO) 0.6 10^3/uL (0.1-1.4); ABSOLUTE NEUT (AUTO) 8.1 10^3/uL (1.7-8.2); BASOPHILS % (AUTO) 0.4 % (0-2); EOSINOPHILS % (AUTO) 0.1 % (0-6); HEMATOCRIT 33.5 % (36.0-47.0); HEMOGLOBIN 11.3 g/dL (12.0-15.5); LYMPHOCYTES % (AUTO) 14.8 % (13-45); MEAN CORPUSCULAR HGB CONC 33.8 g/dL (32.0-36.0); MEAN CORPUSCULAR VOLUME 86 fl (80-97); MONOCYTES % (AUTO) 6.3 % (3-13); PLATELET COUNT 227 10^3/uL (150-450); RED CELL DISTRIBUTION WIDTH 15.6 % (11.5-14.0); SEGMENTED NEUTROPHILS % (AUTO) 78.4 % (42-78); TOTAL CELLS COUNTED % (AUTO) 100 %; WHITE BLOOD COUNT 10.3 10^3/uL (4.0-10.5)
[2017-10-19 05:37] LABS: ALANINE AMINOTRANSFERASE 67 U/L (9-52); ALBUMIN 4.3 g/dL (3.5-5.0); ALKALINE PHOSPHATASE 57 U/L (38-126); ANION GAP 16 (5-19); ASPARTATE AMINO TRANSFERASE 132 U/L (14-36); BILIRUBIN,DIRECT 0.4 mg/dL (0.0-0.4); BILIRUBIN,TOTAL 0.5 mg/dL (0.2-1.3); BLOOD UREA NITROGEN 11 mg/dL (7-20); CALCIUM 9.9 mg/dL (8.4-10.2); CARBON DIOXIDE 22 mmol/L (22-30); CHLORIDE 100 mmol/L (98-107); GLUCOSE 130 mg/dL (75-110); POTASSIUM 3.7 mmol/L (3.6-5.0); SODIUM 137.7 mmol/L (137-145)
--- NOTE | 2017-10-19 08:21 | PDOC PROGRESS REPORT ---
Subjective Progress Note for:: 10/19/17 Subjective:: Patient is complaining of left-sided abdominal pain and the patient's positive bowel movement also and even the patient's was giving the MiraLAX and Colace and Maalox and patient still not getting better According to the patient's something stuck on the left side Patient's denied any chest pain denied any shortness of the breath Denied any weakness CT abdomen pelvis without contrast yesterday was done was all stable Patient MRI and MRA of the head was all stable Patient seen by the cardiology currently all stable Reason For Visit: TIA Physical Exam Vital Signs: Temp Pulse Resp BP Pulse Ox 98.9 F 68 12 140/60 H 99 10/19/17 03:57 10/19/17 06:48 10/19/17 03:57 10/19/17 04:15 10/19/17 03:57 Intake & Output 10/18/17 10/19/17 10/20/17 06:59 06:59 06:59 Intake Total 1100 2144 Output Total 300 1300 Balance 800 844 Weight 76.1 kg 77.6 kg General appearance: PRESENT: no acute distress, well-developed, well-nourished Head exam: PRESENT: atraumatic, normocephalic Eye exam: PRESENT: conjunctiva pink, EOMI, PERRLA. ABSENT: scleral icterus Ear exam: PRESENT: normal external ear exam Mouth exam: PRESENT: moist, tongue midline Neck exam: PRESENT: full ROM. ABSENT: carotid bruit, JVD, lymphadenopathy, thyromegaly Respiratory exam: PRESENT: clear to auscultation slava Cardiovascular exam: PRESENT: RRR. ABSENT: diastolic murmur, rubs, systolic murmur Pulses: PRESENT: normal dorsalis pedis pul, +2 pedal pulses bilateral Vascular exam: PRESENT: normal capillary refill GI/Abdominal exam: PRESENT: normal bowel sounds, soft. ABSENT: distended, guarding, mass, organolmegaly, rebound, tenderness Rectal exam: PRESENT: deferred Extremities exam: ABSENT: pedal edema Musculoskeletal exam: PRESENT: ambulatory Neurological exam: PRESENT: alert, awake, oriented to person, oriented to place , oriented to time, oriented to situation, CN II-XII grossly intact. ABSENT: motor sensory deficit Psychiatric exam: PRESENT: appropriate affect, normal mood. ABSENT: homicidal ideation, suicidal ideation Skin exam: PRESENT: dry, intact, warm. ABSENT: cyanosis, rash Results Laboratory Results: 10/19/17 04:37 10/19/17 04:37 10/19/17 10/19/17 04:37 04:37 WBC 10.3 RBC 3.90 Hgb 11.3 L Hct 33.5 L MCV 86 MCH 29.0 MCHC 33.8 RDW 15.6 H Plt Count 227 Seg Neutrophils % 78.4 H Lymphocytes % 14.8 Monocytes % 6.3 Eosinophils % 0.1 Basophils % 0.4 Absolute Neutrophils 8.1 Absolute Lymphocytes 1.5 Absolute Monocytes 0.6 Absolute Eosinophils 0.0 Absolute Basophils 0.0 Sodium 137.7 Potassium 3.7 Chloride 100 Carbon Dioxide 22 Anion Gap 16 BUN 11 Creatinine 1.02 Est GFR ( Amer) > 60 Est GFR (Non-Af Amer) 52 L Glucose 130 H Calcium 9.9 Total Bilirubin 0.5 AST 132 H ALT 67 H Alkaline Phosphatase 57 Total Protein 8.0 Albumin 4.3 10/18/17 10/18/17 10/18/17 03:30 04:17 10:39 Creatine Kinase 104 100 CK-MB (CK-2) 1.04 Troponin I < 0.012 10/18/17 10/18/17 10/18/17 10:39 16:20 16:20 Creatine Kinase 100 CK-MB (CK-2) 0.93 0.87 Troponin I < 0.012 < 0.012 Impressions: Chest X-Ray 10/17/17 00:00 IMPRESSION: STABLE MILD CARDIOMEGALY. NO ACUTE RADIOGRAPHIC FINDING IN THE CHEST. Head CT 10/17/17 20:25 IMPRESSION: MILD CHRONIC CHANGES OF ATROPHY AND MICROVASCULAR ISCHEMIA. NO ACUTE PROCESS. EVIDENCE OF ACUTE STROKE: NO. Brain MRI with MRA 10/17/17 23:16 IMPRESSION: MILD SMALL VESSEL ISCHEMIC CHANGE IN THE RIVKA AND HEMISPHERIC WHITE MATTER, CHRONIC. NO MR EVIDENCE OF ACUTE ISCHEMIC CHANGE UNREMARKABLE [place] MRA EXAM. EVIDENCE OF ACUTE STROKE: NO Abdomen/Pelvis CT 10/18/17 00:00 IMPRESSION: NO SIGNIFICANT OR ACUTE PROCESS IN THE ABDOMEN OR PELVIS. Carotid Doppler Study 10/18/17 00:00 IMPRESSION: No flow significant stenosis at the carotid bifurcations. Antegrade pulsatile vertebral artery flow bilaterally. Head CTA 10/18/17 00:00 IMPRESSION: No acute findings. Head MRI 10/18/17 00:00 IMPRESSION: MILD SMALL VESSEL ISCHEMIC CHANGE IN THE RIVKA AND HEMISPHERIC WHITE MATTER, CHRONIC. NO MR EVIDENCE OF ACUTE ISCHEMIC CHANGE UNREMARKABLE [place] MRA EXAM. EVIDENCE OF ACUTE STROKE: NO Assessment & Plan - Diagnosis (1) Acute cerebrovascular accident Is this a current diagnosis for this admission?: Yes Plan: Patient so far so all test is negative most likely a TIA continues to current medications (2) Hypertension Qualifiers: Hypertension type: essential hypertension Qualified Code(s): I10 - Essential (primary) hypertension Is this a current diagnosis for this admission?: Yes Plan: On the nifedipine and increase the losartan continues to hold the beta-meagan due to the low heart rate (3) Hyperlipidemia Qualifiers: Hyperlipidemia type: unspecified Qualified Code(s): E78.5 - Hyperlipidemia , unspecified Is this a current diagnosis for this admission?: Yes Plan: Patient's taking the simvastatin at home will increase the Lipitor 80 mg p.o. daily (4) Congestive heart failure Qualifiers: Heart failure type: diastolic Heart failure chronicity: chronic Qualified Code(s): I50.32 - Chronic diastolic (congestive) heart failure Is this a current diagnosis for this admission?: Yes Plan: Scheduled echocardiogram today (5) Bradycardia Is this a current diagnosis for this admission?: Yes Plan: Continues to hold the beta-meagan (6) Dementia Qualifiers: Dementia type: unspecified type Dementia behavioral disturbance: without behavioral disturbance Qualified Code(s): F03.90 - Unspecified dementia without behavioral disturbance Is this a current diagnosis for this admission?: Yes Plan: Continues to Aricept (7) Type 2 diabetes mellitus Qualifiers: Diabetes mellitus long term acute care registered nurse insulin use: without long term acute care registered nurse use Diabetes mellitus complication status: with unspecified complications Qualified Code(s) : E11.8 - Type 2 diabetes mellitus with unspecified complications Is this a current diagnosis for this admission?: Yes Plan: Continues to sliding scaleSince recent A1c is 5.9 (8) Left sided abdominal pain Is this a current diagnosis for this admission?: Yes Plan: Could be possible diverticulitis with the CT abdomen pelvis without contrast was negative due to the patient's recent use the contrast yesterday for CT head is unable to use the contrast Start the p.o. antibiotic Consult surgery today and discussed with myself to Dr. 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
[2017-10-19] MEDS ORDERED: CIPROFLOXACIN HCL 500 MG TABLET PO ONE (08:30)
[2017-10-19] MEDS: ENOXAPARIN SODIUM INJ 40 MG/0.4 ML DISP.SYRIN SUBCUT SCH (09:46)
[2017-10-19] MEDS: SITAGLIPTIN PHOSPHATE 50 MG TABLET PO SCH (09:46)
[2017-10-19] MEDS: TRAMADOL HCL 50 MG TABLET PO PRN (09:47)
[2017-10-19] MEDS: CLOPIDOGREL BISULFATE 75 MG TABLET PO SCH (09:47)
[2017-10-19] MEDS: NIFEDIPINE 30 MG TAB.ER.24 PO SCH ×2 (09:47→21:05)
[2017-10-19] MEDS: DOCUSATE SODIUM 100 MG CAPSULE PO SCH ×2 (09:47→18:18)
[2017-10-19] MEDS: ASPIRIN 81 MG TABLET, ENT COATED PO SCH (09:47)
[2017-10-19] MEDS: FAMOTIDINE 20 MG TABLET PO SCH (09:47)
[2017-10-19] MEDS ORDERED: LOSARTAN POTASSIUM 50 MG TABLET PO SCH ×2 (10:00)
[2017-10-19] MEDS ORDERED: LOSARTAN POTASSIUM 25 MG TABLET PO SCH ×2 (10:00)
[2017-10-19] MEDS ORDERED: (PENDING PHARMACY ID) (Telmisartan [Micardis 20 Mg Tablet] 20 MG) PO SCH (10:00)
--- NOTE | 2017-10-19 11:53 | PDOC PROGRESS REPORT ---
Subjective Progress Note for:: 10/19/17 Subjective:: Complaining of left-sided abdominal pain along with some nausea. Heart kwan she is fine she is denying any chest pain. She denied palpitations. Reason For Visit: TIA Physical Exam Vital Signs: Temp Pulse Resp BP Pulse Ox 97.9 F 61 15 159/81 H 100 10/19/17 08:02 10/19/17 08:02 10/19/17 08:02 10/19/17 08:02 10/19/17 08:02 Intake & Output 10/18/17 10/19/17 10/20/17 06:59 06:59 06:59 Intake Total 1100 2144 Output Total 300 1300 400 Balance 800 844 -400 Weight 76.1 kg 77.6 kg Exam: GENERAL: well-nourished and in no acute distress. Alert and oriented x3 HEAD: Atraumatic, normocephalic. EYES: Pupils equal round and reactive to light, extraocular movements intact, sclera anicteric, conjunctiva are normal. ENT: TMs normal, nares patent, oropharynx clear without exudates. Moist mucous membranes. No oral ulcerations or bleeding gums noted NECK: supple without lymphadenopathy. Trachea is central. No cervical or axillary lymphadenopathy noted. Carotids are 2+, JVD WNL LUNGS: Respiration seems nonlabored, no significant accessory muscle action noted. Breath sounds clear to auscultation bilaterally and equal noted. No wheezes rales or rhonchi noted. No significant dullness noted on percussion. CHEST: Palpation of the chest wall shows no significant chest wall tenderness. No other significant abnormalities noted. 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 ABDOMEN: Soft, slight left lower quadrant tenderness appreciated, normoactive bowel sounds. No guarding, no rebound. No rigidity noted . No masses appreciated. EXTREMITIES: Pedal pulses are 1-2+, no calf tenderness noted. No clubbing or cyanosis. negative pedal edema noted NEUROLOGICAL: Focused neurological exam showed no significant neurologic deficit. Normal speech, no focal weakness appreciated. PSYCH: Normal mood, normal affect. Judgment and insight within normal limits. SKIN: No significant ecchymosis, skin is noted to be warm. MUSCULOSKELETAL EXAM: No significant acute joint swelling noted. Results Laboratory Results: 10/19/17 04:37 10/19/17 04:37 10/19/17 10/19/17 04:37 04:37 WBC 10.3 RBC 3.90 Hgb 11.3 L Hct 33.5 L MCV 86 MCH 29.0 MCHC 33.8 RDW 15.6 H Plt Count 227 Seg Neutrophils % 78.4 H Lymphocytes % 14.8 Monocytes % 6.3 Eosinophils % 0.1 Basophils % 0.4 Absolute Neutrophils 8.1 Absolute Lymphocytes 1.5 Absolute Monocytes 0.6 Absolute Eosinophils 0.0 Absolute Basophils 0.0 Sodium 137.7 Potassium 3.7 Chloride 100 Carbon Dioxide 22 Anion Gap 16 BUN 11 Creatinine 1.02 Est GFR ( Amer) > 60 Est GFR (Non-Af Amer) 52 L Glucose 130 H Calcium 9.9 Total Bilirubin 0.5 AST 132 H ALT 67 H Alkaline Phosphatase 57 Total Protein 8.0 Albumin 4.3 10/18/17 10/18/17 10/18/17 03:30 04:17 10:39 Creatine Kinase 104 100 CK-MB (CK-2) 1.04 Troponin I < 0.012 10/18/17 10/18/17 10/18/17 10:39 16:20 16:20 Creatine Kinase 100 CK-MB (CK-2) 0.93 0.87 Troponin I < 0.012 < 0.012 EKG Comments: Telemetry shows sinus rhythm with occasional APCs and VPCs. Impressions: Chest X-Ray 10/17/17 00:00 IMPRESSION: STABLE MILD CARDIOMEGALY. NO ACUTE RADIOGRAPHIC FINDING IN THE CHEST. Head CT 10/17/17 20:25 IMPRESSION: MILD CHRONIC CHANGES OF ATROPHY AND MICROVASCULAR ISCHEMIA. NO ACUTE PROCESS. EVIDENCE OF ACUTE STROKE: NO. Brain MRI with MRA 10/17/17 23:16 IMPRESSION: MILD SMALL VESSEL ISCHEMIC CHANGE IN THE RIVKA AND HEMISPHERIC WHITE MATTER, CHRONIC. NO MR EVIDENCE OF ACUTE ISCHEMIC CHANGE UNREMARKABLE [place] MRA EXAM. EVIDENCE OF ACUTE STROKE: NO Abdomen/Pelvis CT 10/18/17 00:00 IMPRESSION: NO SIGNIFICANT OR ACUTE PROCESS IN THE ABDOMEN OR PELVIS. Carotid Doppler Study 10/18/17 00:00 IMPRESSION: No flow significant stenosis at the carotid bifurcations. Antegrade pulsatile vertebral artery flow bilaterally. Head CTA 10/18/17 00:00 IMPRESSION: No acute findings. Head MRI 10/18/17 00:00 IMPRESSION: MILD SMALL VESSEL ISCHEMIC CHANGE IN THE RIVKA AND HEMISPHERIC WHITE MATTER, CHRONIC. NO MR EVIDENCE OF ACUTE ISCHEMIC CHANGE UNREMARKABLE [place] MRA EXAM. EVIDENCE OF ACUTE STROKE: NO Assessment & Plan - Diagnosis (1) TIA (transient ischemic attack) Qualifiers: Transient cerebral ischemia type: unspecified Qualified Code(s): G45.9 - Transient cerebral ischemic attack, unspecified Is this a current diagnosis for this admission?: Yes (2) Bradycardia Is this a current diagnosis for this admission?: Yes (3) Dementia Qualifiers: Dementia type: unspecified type Dementia behavioral disturbance: without behavioral disturbance Qualified Code(s): F03.90 - Unspecified dementia without behavioral disturbance Is this a current diagnosis for this admission?: Yes (4) Hyperlipidemia Qualifiers: Hyperlipidemia type: unspecified Qualified Code(s): E78.5 - Hyperlipidemia , unspecified Is this a current diagnosis for this admission?: Yes (5) Hypertension Qualifiers: Hypertension type: essential hypertension Qualified Code(s): I10 - Essential (primary) hypertension Is this a current diagnosis for this admission?: Yes (6) Type 2 diabetes mellitus Qualifiers: Diabetes mellitus senior living insulin use: without terminal press operator use Diabetes mellitus complication status: with unspecified complications Qualified Code(s) : E11.8 - Type 2 diabetes mellitus with unspecified complications Is this a current diagnosis for this admission?: Yes - Notes Notes: Transient ischemic attack: Resolved. No cause found. Bradycardia: Improved following reducing beta-meagan dose. Dementia: Currently is stable. Hyperlipidemia: Continue current statin therapy. Hypertension: Blood pressure under reasonable control. BP goal in this elderly patient should be 150/90 or less. Diabetes: Recommend good glycemic control but avoid any hypo-or hyperglycemia. Left lower quadrant discomfort: Patient being evaluated by Dr. Pederson. Currently stable. - Time Time with patient: Greater than 35 minutes - 2D echo results reviewed. Various causes of transient ischemic attack symptoms discussed. Patient advised event monitor as an outpatient.
--- NOTE | 2017-10-19 12:00 | RADIOLOGY REPORT (SQ) ---
EXAM DESCRIPTION: U/S ABDOMEN COMPLETE W/O DOP COMPLETED DATE/TIME: 10/19/2017 11:46 am REASON FOR STUDY: abd pain/elevated lft COMPARISON: None. TECHNIQUE: Dynamic and static grayscale images acquired of the abdomen and recorded on PACS. Justino mitchell selected color Doppler and spectral images recorded. LIMITATIONS: None. FINDINGS: PANCREAS: No masses. Visualized pancreatic duct normal caliber. LIVER: No masses. Echotexture normal. LIVER VASCULATURE: Normal directional flow of the main portal vein. GALLBLADDER: No stones. Normal wall thickness. No pericholecystic fluid. ULTRASOUND-DETECTED WAY'S SIGN: Negative. INTRAHEPATIC DUCTS AND COMMON DUCT: CBD and intrahepatic ducts normal caliber. No filling defects. INFERIOR VENA CAVA: Normal flow. AORTA: No aneurysm. RIGHT KIDNEY: 9.7 cm in length. Normal echogenicity. No solid or suspicious masses. No hydrone phrosis. No calcifications. LEFT KIDNEY: 11.3 cm in length. Normal echogenicity. No solid or suspicious masses. No hydrone phrosis. No calcifications. SPLEEN: Normal size. No solid masses. PERITONEAL AND PLEURAL SPACES: No ascites or effusions. OTHER: No other significant finding. IMPRESSION: NORMAL ABDOMINAL ULTRASOUND. TECHNICAL DOCUMENTATION: JOB ID: [id number] [employer]- All Rights Reserved Reading location - IP/workstation name: [email or web address]
[2017-10-19] MEDS ORDERED: HYDRALAZINE HCL INJ/PF 20 MG/1 ML SDV IV PRN (13:51)
[2017-10-19] MEDS ORDERED: METRONIDAZOLE 500 MG TABLET PO SCH (14:00)
--- NOTE | 2017-10-19 14:19 | Physician Advisory Note ---
Physician Advisor ProgressNote .: Pursuant to the plan for [facility], I have reviewed the medical record for this patient. Physician Advisor Statement: Please consider documenting, if you agree: 1. "Hypertensive Urgency, no 'now' BP meds given due to initial concern for acute CVA" ( urgent tx & BP's systolic >180 or diastolic >120 ) OR - "Hypertensive Emergency, causing , no 'now' BP meds given due to initial concern for acute CVA" (requires urgent tx & BP's systolic >180 or diastolic >120 AND symptoms &/ or end-organ effects, such as focal neurological symptoms, headache, CP, .... ) 2. "Acute __ quadrant abd pain, suspect due to " Thanks! CK
[2017-10-19] MEDS: METRONIDAZOLE 500 MG/NS RTU 100 ML IV SCH ×2 (14:22→21:06)
[2017-10-19 17:25] LABS: ABSOLUTE LYMPHOCYTES (AUTO) 0.8 10^3/uL (0.5-4.7); BASOPHILS % (AUTO) 0.3 % (0-2); EOSINOPHILS % (AUTO) 0.1 % (0-6); HEMOGLOBIN 11.7 g/dL (12.0-15.5); LYMPHOCYTES % (AUTO) 5.9 % (13-45); MEAN CORPUSCULAR HEMOGLOBIN 28.6 pg (27.0-33.4); MEAN CORPUSCULAR HGB CONC 33.5 g/dL (32.0-36.0); MEAN CORPUSCULAR VOLUME 85 fl (80-97); MONOCYTES % (AUTO) 7.1 % (3-13); PLATELET COUNT 250 10^3/uL (150-450); SEGMENTED NEUTROPHILS % (AUTO) 86.6 % (42-78); TOTAL CELLS COUNTED % (AUTO) 100 %; WHITE BLOOD COUNT 13.8 10^3/uL (4.0-10.5)
[2017-10-19 17:52] LABS: ALANINE AMINOTRANSFERASE 100 U/L (9-52); ALBUMIN 4.2 g/dL (3.5-5.0); ALKALINE PHOSPHATASE 60 U/L (38-126); ANION GAP 12 (5-19); ASPARTATE AMINO TRANSFERASE 211 U/L (14-36); BILIRUBIN,DIRECT 0.4 mg/dL (0.0-0.4); BILIRUBIN,TOTAL 0.8 mg/dL (0.2-1.3); BLOOD UREA NITROGEN 12 mg/dL (7-20); CALCIUM 10.1 mg/dL (8.4-10.2); CARBON DIOXIDE 24 mmol/L (22-30); CHLORIDE 97 mmol/L (98-107); GLUCOSE 125 mg/dL (75-110); LIPASE 45.4 U/L (23-300); POTASSIUM 3.5 mmol/L (3.6-5.0); SODIUM 133.4 mmol/L (137-145)
[2017-10-19] MEDS: LOSARTAN POTASSIUM 50 MG TABLET PO SCH (18:18)
[2017-10-19] MEDS ORDERED: POTASSI CL 20 MEQ/50 ML RIDER 20 MEQ/50 ML RTUPB IV ONE (18:45)
--- NOTE | 2017-10-19 19:59 | CONSULTATION REPORT E ---
Consultation Report NAME: NAREN TERRY : 1935 AGE: 81Y DATE: 320 A TO: JANIS ALMARAZ M.D. FROM: TANI PEDERSON M.D. Requesting Physician Consultation requested by Dr. Pederson. HISTORY OF THE PRESENT ILLNESS: This 81-year-old patient was admitted on 10/17/17 with a TIA. She presented with left-sided weakness that has recovered. Consultation is requested for abdominal pain. According to the patient and her family she has been having some abdominal pain over the last 2 days but it got worse yesterday. The pain is in the left side and was associated with some nausea and 1 episode of vomiting. She has not had a good bowel movement since being admitted to the hospital. She normally has a daily bowel movement at home but she has to use Dulcolax a few days a week. She had an enema earlier on today but only had a small amount of stool. Her pain is better since the enema. Her last colonoscopy was over 10 years ago. PAST MEDICAL HISTORY: CHF, hypertension, hyperlipidemia, TIA, diabetes, chronic renal failure, reflux disease, arthritis, anemia. PAST SURGICAL HISTORY: Hysterectomy and joint surgery. ALLERGIES: None. SOCIAL HISTORY: Noncontributory. REVIEW OF SYSTEMS: Other than the above is noncontributory. PHYSICAL EXAMINATION: GENERAL: Shows a lady in no distress. VITAL SIGNS: She has a temperature of 99.7, blood pressure 178/42, heart rate of 62. HEENT: There is some pallor but no jaundice. Oropharynx is normal. NECK: No bruit, no JVD. CHEST: Has kyphosis. LUNGS: Clear. ABDOMEN: Soft and nontender. Liver and spleen not palpable. Bowel sounds normal. NEUROLOGIC: Grossly nonfocal. LABORATORY DATA: Today showed an H and H of 11 and 33 respectively. Her white count was normal this morning, but this evening it was 13.8 with a left shift. Chem-7 was normal. Her AST was 132 with ALT of 67 this morning and by this evening it was 211 and 100 respectively. Lipase were normal. IMAGING STUDIES: She had an ultrasound of the abdomen on 10/19/17 that was unremarkable with no gallstones. A CT of the abdomen and pelvis was performed without contrast on 04/11/18, and this was also unremarkable. ASSESSMENT AND PLAN: Abdominal pain. The patient has had some left-sided abdominal pain for the last 2 days with associated elevated liver function test. Her LFTs were normal on admission but were abnormal this morning and more so again this evening. Her bilirubin remained normal. Her pain did improve after given an enema. Differential diagnosis for her pain include; ischemic colitis, gallstone disease even though her ultrasound did not show any gallstones, diverticular disease, constipation, and possibly neoplasm. She is doing better now with no abdominal tenderness. I will proceed with conservative management for now and repeat her blood work in the morning. Her urinalysis may also be infectious in nature. She will need a colonoscopy at some point as her last one was more than 10 years ago. I will also start her on Miralax to help with her chronic constipation. I will follow her with you. DICTATING PHYSICIAN: JANIS ALMARAZ M.D. [id number] PHY#: [id number] ID: [id number] JOB#: [id number] ACCT: [id number] cc:Kimberly CRUM M.D. >
[2017-10-19] MEDS: DONEPEZIL HCL 5 MG TABLET PO SCH (21:05)
[2017-10-19] MEDS: PANTOPRAZOLE SODIUM 40 MG VIAL IV SCH (21:06)
--- NOTE | 2017-10-19 21:07 | PDOC CONSULTATION ---
History of Present Illness Admission Date/PCP: 10/17/17 23:47 TANI MARSH MD Patient complains of: LLQ pains History of Present Illness: NAREN TERRY is a 81 year old female who had a TIA c/o LLQ pains .Had CT scan of abdomen which showed no acute process. Also had Ultrasoubd of abdomen which was normal. Past Medical History Cardiac Medical History: Reports: Congestive Heart Failure, Hyperlipidema, Hypertension Denies: None, Atrial Fibrillation, Coronary Artery Disease, DVT, Myocardial Infarction, Peripheral Vascular Disease, Pulmonary Embolism, Heart Murmur, Other Pulmonary Medical History: Denies: None, Asthma, Bronchitis, Chronic Obstructive Pulmonary Disease (COPD ), Intubation, Pneumonia, Respiratory Failure, Sleep Apnea, Tuberculosis, Other Endocrine Medical History: Reports: Diabetes Mellitus Type 2 Renal/ Medical History: Reports: Chronic Kidney Disease GI Medical History: Reports: Gastroesophageal Reflux Disease Musculoskeltal Medical History: Reports: Arthritis Hematology: Reports: Anemia Past Surgical History Past Surgical History: Reports: Hysterectomy, Orthopedic Surgery Social History Lives with: Family Smoking Status: Never Smoker Frequency of Alcohol Use: None Hx Recreational Drug Use: No Hx Prescription Drug Abuse: No - Advance Directive Resuscitation Status: Full Code Family History Family History: DM, Hypertension Parental Family History Reviewed: Yes - DM,Hypertension Children Family History Reviewed: No Sibling(s) Family History Reviewed.: No Medication/Allergy Home Medications: Bisacodyl [Dulcolax 5 Mg Tablet] 5 mg PO DAILYP PRN 10/18/17 Celecoxib [Celebrex 200 mg Capsule] 200 mg PO DAILY MDD STOP DATE 11/22/1710/18 Donepezil HCl [Aricept] 5 mg PO QHS 10/18/17 Furosemide [Lasix 20 mg Tablet] 20 mg PO DAILY 10/18/17 Levocetirizine Dihydrochloride [Xyzal] 5 mg PO QPM 10/18/17 Metoprolol Tartrate [Lopressor 50 mg Tablet] 50 mg PO Q12 10/18/17 Nifedipine [Nifedipine ER] 30 mg PO Q12 10/18/17 Omeprazole 20 mg PO DAILY 10/18/17 Simvastatin [Zocor 80 mg Tablet] 80 mg PO QHS 10/18/17 Sitagliptin Phosphate [Januvia] 100 mg PO DAILY 10/18/17 Telmisartan [Micardis 20 mg Tablet] 20 mg PO DAILY 10/18/17 Zolpidem Tartrate [Ambien 5 mg Tablet] 5 mg PO QHS 10/18/17 Allergies/Adverse Reactions: No Known Allergies Allergy (Unverified 10/17/17 20:25) Review of Systems Constitutional: PRESENT: weakness Gastrointestinal: PRESENT: abdominal pain - LLQ, constipation Physical Exam Vital Signs: Temp Pulse Resp BP Pulse Ox 100.1 F 83 28 H 163/51 H 96 10/19/17 20:22 10/19/17 20:22 10/19/17 20:22 10/19/17 20:22 10/19/17 20:22 Intake & Output 10/18/17 10/19/17 10/20/17 06:59 06:59 06:59 Intake Total 1100 2144 1194 Output Total 300 1300 400 Balance 800 844 794 Weight 76.1 kg 77.6 kg General appearance: PRESENT: no acute distress Head exam: PRESENT: atraumatic Eye exam: PRESENT: conjunctiva pink Mouth exam: PRESENT: moist Neck exam: PRESENT: full ROM Respiratory exam: PRESENT: clear to auscultation slava Cardiovascular exam: PRESENT: RRR Pulses: PRESENT: normal radial pulses Vascular exam: PRESENT: normal capillary refill GI/Abdominal exam: PRESENT: tenderness - LLQ on deep palpation Rectal exam: PRESENT: deferred Musculoskeletal exam: PRESENT: ambulatory Neurological exam: PRESENT: alert, oriented to person, oriented to place, oriented to time, oriented to situation Psychiatric exam: PRESENT: appropriate affect Skin exam: PRESENT: normal color, warm Results Laboratory Results: 10/19/17 16:55 10/19/17 16:55 10/19/17 10/19/17 10/19/17 04:37 04:37 04:37 WBC 10.3 RBC 3.90 Hgb 11.3 L Hct 33.5 L MCV 86 MCH 29.0 MCHC 33.8 RDW 15.6 H Plt Count 227 Seg Neutrophils % 78.4 H Lymphocytes % 14.8 Monocytes % 6.3 Eosinophils % 0.1 Basophils % 0.4 Absolute Neutrophils 8.1 Absolute Lymphocytes 1.5 Absolute Monocytes 0.6 Absolute Eosinophils 0.0 Absolute Basophils 0.0 Sodium 137.7 Potassium 3.7 Chloride 100 Carbon Dioxide 22 Anion Gap 16 BUN 11 Creatinine 1.02 Est GFR ( Amer) > 60 Est GFR (Non-Af Amer) 52 L Glucose 130 H Calcium 9.9 Total Bilirubin 0.5 AST 132 H ALT 67 H Alkaline Phosphatase 57 Total Protein 8.0 Albumin 4.3 Lipase 50.3 10/19/17 10/19/17 16:55 16:55 WBC 13.8 H RBC 4.10 Hgb 11.7 L Hct 35.0 L MCV 85 MCH 28.6 MCHC 33.5 RDW 16.0 H Plt Count 250 Seg Neutrophils % 86.6 H Lymphocytes % 5.9 L Monocytes % 7.1 Eosinophils % 0.1 Basophils % 0.3 Absolute Neutrophils 12.0 H Absolute Lymphocytes 0.8 Absolute Monocytes 1.0 Absolute Eosinophils 0.0 Absolute Basophils 0.0 Sodium 133.4 L Potassium 3.5 L Chloride 97 L Carbon Dioxide 24 Anion Gap 12 BUN 12 Creatinine 1.09 Est GFR ( Amer) 58 L Est GFR (Non-Af Amer) 48 L Glucose 125 H Calcium 10.1 Total Bilirubin 0.8 AST 211 H ALT 100 H Alkaline Phosphatase 60 Total Protein 8.0 Albumin 4.2 Lipase 45.4 10/18/17 10/18/17 10/18/17 03:30 04:17 10:39 Creatine Kinase 104 100 CK-MB (CK-2) 1.04 Troponin I < 0.012 10/18/17 10/18/17 10/18/17 10:39 16:20 16:20 Creatine Kinase 100 CK-MB (CK-2) 0.93 0.87 Troponin I < 0.012 < 0.012 Impressions: Chest X-Ray 10/17/17 00:00 IMPRESSION: STABLE MILD CARDIOMEGALY. NO ACUTE RADIOGRAPHIC FINDING IN THE CHEST. Head CT 10/17/17 20:25 IMPRESSION: MILD CHRONIC CHANGES OF ATROPHY AND MICROVASCULAR ISCHEMIA. NO ACUTE PROCESS. EVIDENCE OF ACUTE STROKE: NO. Brain MRI with MRA 10/17/17 23:16 IMPRESSION: MILD SMALL VESSEL ISCHEMIC CHANGE IN THE RIVKA AND HEMISPHERIC WHITE MATTER, CHRONIC. NO MR EVIDENCE OF ACUTE ISCHEMIC CHANGE UNREMARKABLE [place] MRA EXAM. EVIDENCE OF ACUTE STROKE: NO Abdomen/Pelvis CT 10/18/17 00:00 IMPRESSION: NO SIGNIFICANT OR ACUTE PROCESS IN THE ABDOMEN OR PELVIS. Carotid Doppler Study 10/18/17 00:00 IMPRESSION: No flow significant stenosis at the carotid bifurcations. Antegrade pulsatile vertebral artery flow bilaterally. Head CTA 10/18/17 00:00 IMPRESSION: No acute findings. Head MRI 10/18/17 00:00 IMPRESSION: MILD SMALL VESSEL ISCHEMIC CHANGE IN THE [place] AND HEMISPHERIC WHITE MATTER, CHRONIC. NO MR EVIDENCE OF ACUTE ISCHEMIC CHANGE UNREMARKABLE [place] MRA EXAM. EVIDENCE OF ACUTE STROKE: NO Abdomen Ultrasound 10/19/17 00:00 IMPRESSION: NORMAL ABDOMINAL ULTRASOUND. Assessment & Plan - Diagnosis (1) Left sided abdominal pain Is this a current diagnosis for this admission?: Yes - Time Time Spent: 30 to 50 Minutes - Plan Summary Plan Summary: No apparent surgical abdomen or any acute process other than constipation though patient claims she had a BM yesterday. Daughter claims pt has hx of constipation Try Soap suds enema
[2017-10-19] MEDS ORDERED: CIPROFLOXACIN HCL 500 MG TABLET PO SCH (22:00)
[2017-10-19] MEDS: CIPROFLOXACIN 400 MG/D5W RTU 400 MG/200 ML RTUPB IV SCH (23:07)
[2017-10-20] MEDS: ACETAMINOPHEN 325 MG TABLET PO PRN (02:36)
[2017-10-20 04:56] LABS: ABSOLUTE BASOPHILS # (AUTO) 0.1 10^3/uL (0.0-0.2); ABSOLUTE LYMPHOCYTES (AUTO) 1.4 10^3/uL (0.5-4.7); ABSOLUTE MONOCYTES (AUTO) 1.6 10^3/uL (0.1-1.4); ABSOLUTE NEUT (AUTO) 15.9 10^3/uL (1.7-8.2); BASOPHILS % (AUTO) 0.3 % (0-2); HEMATOCRIT 32.5 % (36.0-47.0); LYMPHOCYTES % (AUTO) 7.2 % (13-45); MEAN CORPUSCULAR HEMOGLOBIN 28.7 pg (27.0-33.4); MEAN CORPUSCULAR HGB CONC 33.9 g/dL (32.0-36.0); MEAN CORPUSCULAR VOLUME 85 fl (80-97); MONOCYTES % (AUTO) 8.4 % (3-13); PLATELET COUNT 224 10^3/uL (150-450); RED BLOOD COUNT 3.84 10^6/uL (3.72-5.28); RED CELL DISTRIBUTION WIDTH 15.7 % (11.5-14.0); SEGMENTED NEUTROPHILS % (AUTO) 84.1 % (42-78); TOTAL CELLS COUNTED % (AUTO) 100 %; WHITE BLOOD COUNT 18.9 10^3/uL (4.0-10.5)
[2017-10-20 05:19] LABS: ALANINE AMINOTRANSFERASE 80 U/L (9-52); ALBUMIN 3.5 g/dL (3.5-5.0); ALKALINE PHOSPHATASE 54 U/L (38-126); ANION GAP 9 (5-19); ASPARTATE AMINO TRANSFERASE 137 U/L (14-36); BILIRUBIN,DIRECT 0.3 mg/dL (0.0-0.4); BILIRUBIN,TOTAL 0.7 mg/dL (0.2-1.3); BLOOD UREA NITROGEN 14 mg/dL (7-20); CALCIUM 9.2 mg/dL (8.4-10.2); CARBON DIOXIDE 24 mmol/L (22-30); CHLORIDE 99 mmol/L (98-107); GLUCOSE 108 mg/dL (75-110); LIPASE 20.3 U/L (23-300); POTASSIUM 3.6 mmol/L (3.6-5.0); SODIUM 132.4 mmol/L (137-145); TOTAL PROTEIN 6.9 g/dL (6.3-8.2)
[2017-10-20] MEDS: METRONIDAZOLE 500 MG/NS RTU 100 ML IV SCH ×3 (05:41→23:17)
[2017-10-20] MEDS: TRAMADOL HCL 50 MG TABLET PO PRN ×2 (08:36→17:00)
[2017-10-20] MEDS: ENOXAPARIN SODIUM INJ 40 MG/0.4 ML DISP.SYRIN SUBCUT SCH (10:44)
[2017-10-20] MEDS: PANTOPRAZOLE SODIUM 40 MG VIAL IV SCH ×2 (10:45→22:09)
[2017-10-20] MEDS: CIPROFLOXACIN 400 MG/D5W RTU 400 MG/200 ML RTUPB IV SCH ×2 (10:45→22:09)
[2017-10-20] MEDS: LOSARTAN POTASSIUM 50 MG TABLET PO SCH ×2 (10:46→18:10)
[2017-10-20] MEDS: ASPIRIN 81 MG TABLET, ENT COATED PO SCH (10:47)
[2017-10-20] MEDS: NIFEDIPINE 30 MG TAB.ER.24 PO SCH ×2 (10:47→22:09)
[2017-10-20] MEDS: SITAGLIPTIN PHOSPHATE 50 MG TABLET PO SCH (10:47)
[2017-10-20] MEDS: DOCUSATE SODIUM 100 MG CAPSULE PO SCH ×2 (10:47→18:10)
[2017-10-20] MEDS: CLOPIDOGREL BISULFATE 75 MG TABLET PO SCH (10:47)
[2017-10-20] MEDS: POLYETHYLENE GLYCOL 3350 POWDER 17 GM/1 PACKET PO SCH (10:55)
--- NOTE | 2017-10-20 11:02 | PDOC PROGRESS REPORT ---
Subjective Progress Note for:: 10/20/17 Subjective:: Patient is currently sitting in a chair Patients feel better compared to yesterday still with some left lower quadrant pain Patient's white count goes up and patient have some low-grade fever overnight Patient's denied any chest pain denied any shortness of the breath Patient's denied any weakness denied any blurry vision Reason For Visit: TIA Physical Exam Vital Signs: Temp Pulse Resp BP Pulse Ox 99.3 F 64 18 168/45 H 96 10/20/17 07:29 10/20/17 07:29 10/20/17 07:29 10/20/17 07:29 10/20/17 07:29 Intake & Output 10/19/17 10/20/17 10/21/17 06:59 06:59 06:59 Intake Total 2144 2819 Output Total 1300 400 Balance 844 2419 Weight 77.6 kg 76.4 kg General appearance: PRESENT: no acute distress, well-developed, well-nourished Head exam: PRESENT: atraumatic, normocephalic Eye exam: PRESENT: conjunctiva pink, EOMI, PERRLA. ABSENT: scleral icterus Ear exam: PRESENT: normal external ear exam Mouth exam: PRESENT: moist, tongue midline Neck exam: PRESENT: full ROM. ABSENT: carotid bruit, JVD, lymphadenopathy, thyromegaly Respiratory exam: PRESENT: clear to auscultation slava Cardiovascular exam: PRESENT: RRR. ABSENT: diastolic murmur, rubs, systolic murmur Pulses: PRESENT: normal dorsalis pedis pul, +2 pedal pulses bilateral Vascular exam: PRESENT: normal capillary refill GI/Abdominal exam: PRESENT: normal bowel sounds, soft, tenderness. ABSENT: distended, guarding, mass, organolmegaly, rebound Additonal comments: Left lower Quadrant mild tenderness but no guarding no rigidity Rectal exam: PRESENT: deferred Musculoskeletal exam: PRESENT: ambulatory Neurological exam: PRESENT: alert, awake, oriented to person, oriented to place , oriented to time, oriented to situation, CN II-XII grossly intact. ABSENT: motor sensory deficit Psychiatric exam: PRESENT: appropriate affect, normal mood. ABSENT: homicidal ideation, suicidal ideation Skin exam: PRESENT: dry, intact, warm. ABSENT: cyanosis, rash Results Laboratory Results: 10/20/17 04:34 10/20/17 04:34 10/19/17 10/19/17 10/19/17 04:37 16:55 16:55 WBC 13.8 H RBC 4.10 Hgb 11.7 L Hct 35.0 L MCV 85 MCH 28.6 MCHC 33.5 RDW 16.0 H Plt Count 250 Seg Neutrophils % 86.6 H Lymphocytes % 5.9 L Monocytes % 7.1 Eosinophils % 0.1 Basophils % 0.3 Absolute Neutrophils 12.0 H Absolute Lymphocytes 0.8 Absolute Monocytes 1.0 Absolute Eosinophils 0.0 Absolute Basophils 0.0 Sodium 133.4 L Potassium 3.5 L Chloride 97 L Carbon Dioxide 24 Anion Gap 12 BUN 12 Creatinine 1.09 Est GFR ( Amer) 58 L Est GFR (Non-Af Amer) 48 L Glucose 125 H Calcium 10.1 Total Bilirubin 0.8 AST 211 H ALT 100 H Alkaline Phosphatase 60 Total Protein 8.0 Albumin 4.2 Lipase 50.3 45.4 10/20/17 10/20/17 04:34 04:34 WBC 18.9 H RBC 3.84 Hgb 11.0 L Hct 32.5 L MCV 85 MCH 28.7 MCHC 33.9 RDW 15.7 H Plt Count 224 Seg Neutrophils % 84.1 H Lymphocytes % 7.2 L Monocytes % 8.4 Eosinophils % 0.0 Basophils % 0.3 Absolute Neutrophils 15.9 H Absolute Lymphocytes 1.4 Absolute Monocytes 1.6 H Absolute Eosinophils 0.0 Absolute Basophils 0.1 Sodium 132.4 L Potassium 3.6 Chloride 99 Carbon Dioxide 24 Anion Gap 9 BUN 14 Creatinine 1.31 H Est GFR ( Amer) 47 L Est GFR (Non-Af Amer) 39 L Glucose 108 Calcium 9.2 Total Bilirubin 0.7 AST 137 H ALT 80 H Alkaline Phosphatase 54 Total Protein 6.9 Albumin 3.5 Lipase 20.3 L 10/18/17 10/18/17 10/18/17 03:30 04:17 10:39 Creatine Kinase 104 100 CK-MB (CK-2) 1.04 Troponin I < 0.012 10/18/17 10/18/17 10/18/17 10:39 16:20 16:20 Creatine Kinase 100 CK-MB (CK-2) 0.93 0.87 Troponin I < 0.012 < 0.012 Impressions: Chest X-Ray 10/17/17 00:00 IMPRESSION: STABLE MILD CARDIOMEGALY. NO ACUTE RADIOGRAPHIC FINDING IN THE CHEST. Head CT 10/17/17 20:25 IMPRESSION: MILD CHRONIC CHANGES OF ATROPHY AND MICROVASCULAR ISCHEMIA. NO ACUTE PROCESS. EVIDENCE OF ACUTE STROKE: NO. Brain MRI with MRA 10/17/17 23:16 IMPRESSION: MILD SMALL VESSEL ISCHEMIC CHANGE IN THE RIVKA AND HEMISPHERIC WHITE MATTER, CHRONIC. NO MR EVIDENCE OF ACUTE ISCHEMIC CHANGE UNREMARKABLE [place] MRA EXAM. EVIDENCE OF ACUTE STROKE: NO Abdomen/Pelvis CT 10/18/17 00:00 IMPRESSION: NO SIGNIFICANT OR ACUTE PROCESS IN THE ABDOMEN OR PELVIS. Carotid Doppler Study 10/18/17 00:00 IMPRESSION: No flow significant stenosis at the carotid bifurcations. Antegrade pulsatile vertebral artery flow bilaterally. Head CTA 10/18/17 00:00 IMPRESSION: No acute findings. Head MRI 10/18/17 00:00 IMPRESSION: MILD SMALL VESSEL ISCHEMIC CHANGE IN THE [place] AND HEMISPHERIC WHITE MATTER, CHRONIC. NO MR EVIDENCE OF ACUTE ISCHEMIC CHANGE UNREMARKABLE [place] MRA EXAM. EVIDENCE OF ACUTE STROKE: NO Abdomen Ultrasound 10/19/17 00:00 IMPRESSION: NORMAL ABDOMINAL ULTRASOUND. Assessment & Plan - Diagnosis (1) Acute cerebrovascular accident Is this a current diagnosis for this admission?: Yes Plan: Currently all stable (2) Hypertension Qualifiers: Hypertension type: essential hypertension Qualified Code(s): I10 - Essential (primary) hypertension Is this a current diagnosis for this admission?: Yes Plan: On the nifedipine and increase the losartan continues to hold the beta-meagan due to the low heart rate (3) Hyperlipidemia Qualifiers: Hyperlipidemia type: unspecified Qualified Code(s): E78.5 - Hyperlipidemia , unspecified Is this a current diagnosis for this admission?: Yes Plan: Currently hold the Lipitor due to the abnormal LFT (4) Congestive heart failure Qualifiers: Heart failure type: diastolic Heart failure chronicity: chronic Qualified Code(s): I50.32 - Chronic diastolic (congestive) heart failure Is this a current diagnosis for this admission?: Yes Plan: Scheduled echocardiogram today (5) Bradycardia Is this a current diagnosis for this admission?: Yes Plan: Continues to hold the beta-meagan (6) Dementia Qualifiers: Dementia type: unspecified type Dementia behavioral disturbance: without behavioral disturbance Qualified Code(s): F03.90 - Unspecified dementia without behavioral disturbance Is this a current diagnosis for this admission?: Yes (7) Type 2 diabetes mellitus Qualifiers: Diabetes mellitus prison insulin use: without prison use Diabetes mellitus complication status: with unspecified complications Qualified Code(s) : E11.8 - Type 2 diabetes mellitus with unspecified complications Is this a current diagnosis for this admission?: Yes (8) Left sided abdominal pain Is this a current diagnosis for this admission?: Yes Plan: Most likely a diverticulitis discussed with the Dr. Lazaro this morning regarding the patient's current conditions with the elevated white count and also low-grade fever and suggest continues to IV antibiotic and discussed with the general surgery and suggest the order the CT scan and discussed with the nephrology with the patient's creatinine is 1.31 and recently get the contrast and suggest avoid IV contrast and use the p.o. contrast - Time Time Spent with patient: 15-24 minutes Medications reviewed and adjusted accordingly: Yes Anticipated discharge: Other Within: Other - Inpatient Certification Medical Necessity: Need Close Monitoring Due to Risk of Patient Decompensation, Need For IV Fluids, Need for IV Antibiotics Post Hospital Care: D/C Blurb Writer Documentation - Plan Summary Plan Summary: Very extensive discussions with the patient and the patient's daughter regarding the patient's current conditions and coordinate care with the other [employer] product consultant myself in the presence of the nurse in [place]
--- NOTE | 2017-10-20 12:05 | RADIOLOGY REPORT (SQ) ---
EXAM DESCRIPTION: CT ABD/PELVIS ORAL ONLY COMPLETED DATE/TIME: 10/20/2017 11:40 am REASON FOR STUDY: lt side abd pain COMPARISON: Abdominal CT scan dated 10/18/2017 and abdominal ultrasound dated 10/19/2017 TECHNIQUE: CT scan of the abdomen and pelvis performed with oral contrast and no intravenous contras t. Images reviewed with lung, soft tissue, and bone windows. Reconstructed coronal and sagittal MPR i mages reviewed. All images stored on PACS. All CT scanners at this facility use dose modulation, iterative reconstruction, and/or weight based d osing when appropriate to reduce radiation dose to as low as reasonably achievable (ALARA). [facility]: Dose Right [facility]: CareDose [facility]: Dose Right [facility]: Teradose 4D [facility]: Smart Technologies RADIATION DOSE: CT Rad equipment meets quality standard of care and radiation dose reduction techniq ues were employed. CTDIvol: 7.1 mGy. DLP: 349 mGy-cm. mGy. LIMITATIONS: None. FINDINGS: LOWER CHEST: No significant findings. No nodules or infiltrates. NON-CONTRASTED LIVER, SPLEEN, ADRENALS: Evaluation limited by lack of IV contrast. No identified sign ificant masses. PANCREAS: No masses. No peripancreatic inflammatory changes. There is relative increased density wit hin the gallbladder lumen which is felt represent excretion of contrast via the biliary system. GALLBLADDER: No identified stones by CT criteria. No inflammatory changes to suggest cholecystitis. RIGHT KIDNEY AND URETER: No suspicious masses. Assessment limited by lack of IV contrast. No signif icant calcifications. No hydronephrosis or hydroureter. LEFT KIDNEY AND URETER: No suspicious masses. Assessment limited by lack of IV contrast. No signifi cant calcifications. No hydronephrosis or hydroureter. AORTA AND RETROPERITONEUM: No aneurysm. No retroperitoneal masses or adenopathy. BOWEL AND PERITONEAL CAVITY: No obvious masses or inflammatory changes. No free fluid. APPENDIX: Normal. PELVIS, BLADDER, AND ABDOMINAL WALL: No abnormal pelvic masses. No abdominal wall hernias. Bladder un remarkable. BONES: Degenerative changes are identified in the lower lumbar spine OTHER: No other significant finding. IMPRESSION: NO SIGNIFICANT OR ACUTE ABDOMINAL PROCESS. TECHNICAL DOCUMENTATION: JOB ID: [id number] Quality ID # [id number]: Final reports with documentation of one or more dose reduction techniques (e.g., Au tomated exposure control, adjustment of the mA and/or kV according to patient size, use of iterative reconstruction technique) 2010 [employer]- All Rights Reserved Reading location - IP/workstation name: [email or web address]
[2017-10-20] MEDS: NORMAL SALINE 1000 ML 1,000 ML IV PRN (12:23)
--- NOTE | 2017-10-20 13:21 | PDOC PROGRESS REPORT ---
Subjective Progress Note for:: 10/20/17 Subjective:: Left groin pain Reason For Visit: Left groin pain: the patient is c/o continuous pain left groin for the past 2 days. According to the nurse the patient c/o pain 2 days ago as she was straining while having a bowel movement. Since them she has been c/o left groin pain, continuous and localized. The patient is currently hospitalized because of a TIA. In addition, her WBC is elevated from 13 yesterday to 18 today for not clear reasons. Her admission w/u (including UA, Chest Xry, and CT scan A/p with oral contrast) is negative. Physical Exam Vital Signs: Temp Pulse Resp BP Pulse Ox 99.3 F 64 18 168/45 H 96 10/20/17 07:29 10/20/17 07:29 10/20/17 07:29 10/20/17 07:29 10/20/17 07:29 Intake & Output 10/19/17 10/20/17 10/21/17 06:59 06:59 06:59 Intake Total 2144 2819 Output Total 1300 400 Balance 844 2419 Weight 77.6 kg 76.4 kg General appearance: PRESENT: no acute distress, cooperative Neck exam: PRESENT: full ROM Respiratory exam: PRESENT: clear to auscultation slava GI/Abdominal exam: PRESENT: soft, tenderness - left groin on palpation near the symphisis pubis, worse on straining, no mass appreciated Neurological exam: PRESENT: alert, other - no deficits noted Results Laboratory Results: 10/20/17 04:34 10/20/17 04:34 10/19/17 10/19/17 10/19/17 04:37 16:55 16:55 WBC 13.8 H RBC 4.10 Hgb 11.7 L Hct 35.0 L MCV 85 MCH 28.6 MCHC 33.5 RDW 16.0 H Plt Count 250 Seg Neutrophils % 86.6 H Lymphocytes % 5.9 L Monocytes % 7.1 Eosinophils % 0.1 Basophils % 0.3 Absolute Neutrophils 12.0 H Absolute Lymphocytes 0.8 Absolute Monocytes 1.0 Absolute Eosinophils 0.0 Absolute Basophils 0.0 Sodium 133.4 L Potassium 3.5 L Chloride 97 L Carbon Dioxide 24 Anion Gap 12 BUN 12 Creatinine 1.09 Est GFR ( Amer) 58 L Est GFR (Non-Af Amer) 48 L Glucose 125 H Calcium 10.1 Total Bilirubin 0.8 AST 211 H ALT 100 H Alkaline Phosphatase 60 Total Protein 8.0 Albumin 4.2 Lipase 50.3 45.4 10/20/17 10/20/17 04:34 04:34 WBC 18.9 H RBC 3.84 Hgb 11.0 L Hct 32.5 L MCV 85 MCH 28.7 MCHC 33.9 RDW 15.7 H Plt Count 224 Seg Neutrophils % 84.1 H Lymphocytes % 7.2 L Monocytes % 8.4 Eosinophils % 0.0 Basophils % 0.3 Absolute Neutrophils 15.9 H Absolute Lymphocytes 1.4 Absolute Monocytes 1.6 H Absolute Eosinophils 0.0 Absolute Basophils 0.1 Sodium 132.4 L Potassium 3.6 Chloride 99 Carbon Dioxide 24 Anion Gap 9 BUN 14 Creatinine 1.31 H Est GFR ( Amer) 47 L Est GFR (Non-Af Amer) 39 L Glucose 108 Calcium 9.2 Total Bilirubin 0.7 AST 137 H ALT 80 H Alkaline Phosphatase 54 Total Protein 6.9 Albumin 3.5 Lipase 20.3 L 10/18/17 10/18/17 10/18/17 03:30 04:17 10:39 Creatine Kinase 104 100 CK-MB (CK-2) 1.04 Troponin I < 0.012 10/18/17 10/18/17 10/18/17 10:39 16:20 16:20 Creatine Kinase 100 CK-MB (CK-2) 0.93 0.87 Troponin I < 0.012 < 0.012 Impressions: Chest X-Ray 10/17/17 00:00 IMPRESSION: STABLE MILD CARDIOMEGALY. NO ACUTE RADIOGRAPHIC FINDING IN THE CHEST. Head CT 10/17/17 20:25 IMPRESSION: MILD CHRONIC CHANGES OF ATROPHY AND MICROVASCULAR ISCHEMIA. NO ACUTE PROCESS. EVIDENCE OF ACUTE STROKE: NO. Brain MRI with MRA 10/17/17 23:16 IMPRESSION: MILD SMALL VESSEL ISCHEMIC CHANGE IN THE [place] AND HEMISPHERIC WHITE MATTER, CHRONIC. NO MR EVIDENCE OF ACUTE ISCHEMIC CHANGE UNREMARKABLE [place] MRA EXAM. EVIDENCE OF ACUTE STROKE: NO Carotid Doppler Study 10/18/17 00:00 IMPRESSION: No flow significant stenosis at the carotid bifurcations. Antegrade pulsatile vertebral artery flow bilaterally. Head CTA 10/18/17 00:00 IMPRESSION: No acute findings. Head MRI 10/18/17 00:00 IMPRESSION: MILD SMALL VESSEL ISCHEMIC CHANGE IN THE [place] AND HEMISPHERIC WHITE MATTER, CHRONIC. NO MR EVIDENCE OF ACUTE ISCHEMIC CHANGE UNREMARKABLE [place] MRA EXAM. EVIDENCE OF ACUTE STROKE: NO Abdomen Ultrasound 10/19/17 00:00 IMPRESSION: NORMAL ABDOMINAL ULTRASOUND. Abdomen/Pelvis CT 10/20/17 00:00 IMPRESSION: NO SIGNIFICANT OR ACUTE ABDOMINAL PROCESS. Assessment & Plan - Diagnosis (1) Inguinal hernia of left side without obstruction or gangrene Is this a current diagnosis for this admission?: Yes Plan: A/ Hx of TIA Left groin pain with physical exam and symptoms characteristic of left inguinal hernia, most likely femoral type P/ 1) I am recommending repair of this left femoral hernia with mesh when the patient is medically stable according to the Neurology literature. 2) I am recommending to have the patient f/u with the General Surgery Clinic in 4-6 weeks after discharge to schedule the procedure as an outpatient. 3) The patient will require a note from her PCP or neurologist stating that she can undergo left inguinal herniorraphy with average risk
--- NOTE | 2017-10-20 14:14 | RADIOLOGY REPORT (SQ) ---
EXAM DESCRIPTION: CHEST 2 VIEWS COMPLETED DATE/TIME: 10/20/2017 1:48 pm REASON FOR STUDY: fever COMPARISON: Chest film 10/17/2017, 12/22/2014 EXAM PARAMETERS: NUMBER OF VIEWS: two views TECHNIQUE: Digital Frontal and Lateral radiographic views of the chest acquired. RADIATION DOSE: NA LIMITATIONS: none FINDINGS: LUNGS AND PLEURA: No opacities, masses or pneumothorax. No pleural effusion. MEDIASTINUM AND HILAR STRUCTURES: No masses or contour abnormalities. HEART AND VASCULAR STRUCTURES: Mild to moderate cardiomegaly, stable BONES: No acute findings. HARDWARE: None in the chest. OTHER: No other significant finding. IMPRESSION: NO ACUTE RADIOGRAPHIC FINDING IN THE CHEST. TECHNICAL DOCUMENTATION: JOB ID: [id number] [employer]- All Rights Reserved Reading location - IP/workstation name: [email or web address]
[2017-10-20] MEDS: DONEPEZIL HCL 5 MG TABLET PO SCH (22:09)
[2017-10-21] MEDS: TRAMADOL HCL 50 MG TABLET PO PRN ×2 (04:20→22:54)
[2017-10-21] MEDS: METRONIDAZOLE 500 MG/NS RTU 100 ML IV SCH ×3 (05:06→22:54)
[2017-10-21 05:14] LABS: ABSOLUTE LYMPHOCYTES (AUTO) 1.3 10^3/uL (0.5-4.7); ABSOLUTE MONOCYTES (AUTO) 1.5 10^3/uL (0.1-1.4); ABSOLUTE NEUT (AUTO) 12.7 10^3/uL (1.7-8.2); BASOPHILS % (AUTO) 0.3 % (0-2); EOSINOPHILS % (AUTO) 0.2 % (0-6); HEMATOCRIT 31.7 % (36.0-47.0); HEMOGLOBIN 10.6 g/dL (12.0-15.5); LYMPHOCYTES % (AUTO) 8.3 % (13-45); MEAN CORPUSCULAR HEMOGLOBIN 28.6 pg (27.0-33.4); MEAN CORPUSCULAR HGB CONC 33.5 g/dL (32.0-36.0); MEAN CORPUSCULAR VOLUME 85 fl (80-97); MONOCYTES % (AUTO) 9.6 % (3-13); PLATELET COUNT 204 10^3/uL (150-450); RED BLOOD COUNT 3.71 10^6/uL (3.72-5.28); RED CELL DISTRIBUTION WIDTH 16.1 % (11.5-14.0); SEGMENTED NEUTROPHILS % (AUTO) 81.6 % (42-78); TOTAL CELLS COUNTED % (AUTO) 100 %; WHITE BLOOD COUNT 15.6 10^3/uL (4.0-10.5)
[2017-10-21 05:30] LABS: ALANINE AMINOTRANSFERASE 62 U/L (9-52); ALBUMIN 3.1 g/dL (3.5-5.0); ALKALINE PHOSPHATASE 57 U/L (38-126); ANION GAP 9 (5-19); ASPARTATE AMINO TRANSFERASE 64 U/L (14-36); BILIRUBIN,DIRECT 0.3 mg/dL (0.0-0.4); BILIRUBIN,TOTAL 0.6 mg/dL (0.2-1.3); BLOOD UREA NITROGEN 14 mg/dL (7-20); CARBON DIOXIDE 25 mmol/L (22-30); CHLORIDE 102 mmol/L (98-107); GLUCOSE 96 mg/dL (75-110); LIPASE 24.8 U/L (23-300); POTASSIUM 3.5 mmol/L (3.6-5.0); SODIUM 136.4 mmol/L (137-145); TOTAL PROTEIN 6.1 g/dL (6.3-8.2)
[2017-10-21] MEDS: NORMAL SALINE 1000 ML 1,000 ML IV PRN (06:53)
[2017-10-21] MEDS: CLOPIDOGREL BISULFATE 75 MG TABLET PO SCH (10:25)
[2017-10-21] MEDS: ASPIRIN 81 MG TABLET, ENT COATED PO SCH (10:25)
[2017-10-21] MEDS: DOCUSATE SODIUM 100 MG CAPSULE PO SCH ×2 (10:25→17:52)
[2017-10-21] MEDS: PANTOPRAZOLE SODIUM 40 MG VIAL IV SCH ×2 (10:25→21:42)
[2017-10-21] MEDS: NIFEDIPINE 30 MG TAB.ER.24 PO SCH ×2 (10:26→21:42)
[2017-10-21] MEDS: LOSARTAN POTASSIUM 50 MG TABLET PO SCH ×2 (10:26→17:52)
[2017-10-21] MEDS: SITAGLIPTIN PHOSPHATE 50 MG TABLET PO SCH (10:26)
[2017-10-21] MEDS: CIPROFLOXACIN 400 MG/D5W RTU 400 MG/200 ML RTUPB IV SCH ×2 (10:26→21:42)
[2017-10-21] MEDS: ENOXAPARIN SODIUM INJ 40 MG/0.4 ML DISP.SYRIN SUBCUT SCH (10:27)
[2017-10-21] MEDS: POLYETHYLENE GLYCOL 3350 POWDER 17 GM/1 PACKET PO SCH (10:37)
--- NOTE | 2017-10-21 11:39 | PDOC PROGRESS REPORT ---
Subjective Progress Note for:: 10/20/17 Subjective:: Complaining of left-sided abdominal pain along with some nausea. Heart kwan she is fine she is denying any chest pain. She denied palpitations. Reason For Visit: TIA Physical Exam Vital Signs: Temp Pulse Resp BP Pulse Ox 99.6 F 78 16 162/60 H 95 10/20/17 19:49 10/20/17 19:49 10/20/17 19:49 10/20/17 19:49 10/20/17 19:49 Intake & Output 10/19/17 10/20/17 10/21/17 06:59 06:59 06:59 Intake Total 2144 2819 1300 Output Total 1300 400 400 Balance 844 2419 900 Weight 77.6 kg 76.4 kg Results Laboratory Results: 10/20/17 04:34 10/20/17 04:34 10/20/17 10/20/17 04:34 04:34 WBC 18.9 H RBC 3.84 Hgb 11.0 L Hct 32.5 L MCV 85 MCH 28.7 MCHC 33.9 RDW 15.7 H Plt Count 224 Seg Neutrophils % 84.1 H Lymphocytes % 7.2 L Monocytes % 8.4 Eosinophils % 0.0 Basophils % 0.3 Absolute Neutrophils 15.9 H Absolute Lymphocytes 1.4 Absolute Monocytes 1.6 H Absolute Eosinophils 0.0 Absolute Basophils 0.1 Sodium 132.4 L Potassium 3.6 Chloride 99 Carbon Dioxide 24 Anion Gap 9 BUN 14 Creatinine 1.31 H Est GFR ( Amer) 47 L Est GFR (Non-Af Amer) 39 L Glucose 108 Calcium 9.2 Total Bilirubin 0.7 AST 137 H ALT 80 H Alkaline Phosphatase 54 Total Protein 6.9 Albumin 3.5 Lipase 20.3 L 10/18/17 10/18/17 10/18/17 03:30 04:17 10:39 Creatine Kinase 104 100 CK-MB (CK-2) 1.04 Troponin I < 0.012 10/18/17 10/18/17 10/18/17 10:39 16:20 16:20 Creatine Kinase 100 CK-MB (CK-2) 0.93 0.87 Troponin I < 0.012 < 0.012 Impressions: Head CT 10/17/17 20:25 IMPRESSION: MILD CHRONIC CHANGES OF ATROPHY AND MICROVASCULAR ISCHEMIA. NO ACUTE PROCESS. EVIDENCE OF ACUTE STROKE: NO. Brain MRI with MRA 10/17/17 23:16 IMPRESSION: MILD SMALL VESSEL ISCHEMIC CHANGE IN THE [place] AND HEMISPHERIC WHITE MATTER, CHRONIC. NO MR EVIDENCE OF ACUTE ISCHEMIC CHANGE UNREMARKABLE [place] MRA EXAM. EVIDENCE OF ACUTE STROKE: NO Carotid Doppler Study 10/18/17 00:00 IMPRESSION: No flow significant stenosis at the carotid bifurcations. Antegrade pulsatile vertebral artery flow bilaterally. Head CTA 10/18/17 00:00 IMPRESSION: No acute findings. Head MRI 10/18/17 00:00 IMPRESSION: MILD SMALL VESSEL ISCHEMIC CHANGE IN THE [place] AND HEMISPHERIC WHITE MATTER, CHRONIC. NO MR EVIDENCE OF ACUTE ISCHEMIC CHANGE UNREMARKABLE [place] MRA EXAM. EVIDENCE OF ACUTE STROKE: NO Abdomen Ultrasound 10/19/17 00:00 IMPRESSION: NORMAL ABDOMINAL ULTRASOUND. Abdomen/Pelvis CT 10/20/17 00:00 IMPRESSION: NO SIGNIFICANT OR ACUTE ABDOMINAL PROCESS. Chest X-Ray 10/20/17 00:00 IMPRESSION: NO ACUTE RADIOGRAPHIC FINDING IN THE CHEST. Assessment & Plan - Diagnosis (1) TIA (transient ischemic attack) Qualifiers: Transient cerebral ischemia type: unspecified Qualified Code(s): G45.9 - Transient cerebral ischemic attack, unspecified Is this a current diagnosis for this admission?: Yes (2) Bradycardia Is this a current diagnosis for this admission?: Yes (3) Dementia Qualifiers: Dementia type: unspecified type Dementia behavioral disturbance: without behavioral disturbance Qualified Code(s): F03.90 - Unspecified dementia without behavioral disturbance Is this a current diagnosis for this admission?: Yes (4) Hyperlipidemia Qualifiers: Hyperlipidemia type: unspecified Qualified Code(s): E78.5 - Hyperlipidemia , unspecified Is this a current diagnosis for this admission?: Yes (5) Hypertension Qualifiers: Hypertension type: essential hypertension Qualified Code(s): I10 - Essential (primary) hypertension Is this a current diagnosis for this admission?: Yes (6) Type 2 diabetes mellitus Qualifiers: Diabetes mellitus terminal manager insulin use: without terminal manager use Diabetes mellitus complication status: with unspecified complications Qualified Code(s) : E11.8 - Type 2 diabetes mellitus with unspecified complications Is this a current diagnosis for this admission?: Yes - Notes Notes: Transient ischemic attack: Resolved. No cause found. Recommend cardiac event monitor to rule out transient atrial fibrillation. This can be arranged as an outpatient. Bradycardia: Improved following reducing beta-meagan dose. Continue monitoring while in the hospital. Dementia: Currently is stable. Hyperlipidemia: Continue current statin therapy. Hypertension: Blood pressure under reasonable control. BP goal in this elderly patient should be 150/90 or less. Diabetes: Recommend good glycemic control but avoid any hypo-or hyperglycemia. Left lower quadrant discomfort: Patient being evaluated by Dr. Pederson. Currently stable. Patient also seen by the surgeon. No acute abdomen noted. Will sign off. Please reconsult if needed. - Time Time with patient: Greater than 35 minutes - CODE STATUS was discussed, patient remains full code. Surrogate decision-maker unchanged. Multiple medical problems were addressed. More than 50% of the time spent coordinating care, discussing management plans with involved caregivers. Management plans discussed with involved personnels. Medical decision making was of moderate to high complexity, patient's has multiple comorbidities. Medications reviewed and adjusted accordingly: Yes
[2017-10-21] MEDS: ACETAMINOPHEN 325 MG TABLET PO PRN (15:37)
--- NOTE | 2017-10-21 16:17 | PDOC PROGRESS REPORT ---
Subjective Progress Note for:: 10/21/17 Subjective:: Patient was seen by the bedside, she was admitted when she presented with TIA and possible stroke MRI brain was negative for stroke she also add abdominal symptoms, diverticulitis was suspected, CT scan of the abdomen and pelvis was done, negative for diverticulitis presently on antibiotic, 2D echo was done that showed diastolic dysfunction of left ventricle. She was seen by the bedside, there is no new complaints. Reason For Visit: TIA Physical Exam Vital Signs: Temp Pulse Resp BP Pulse Ox 98.1 F 85 12 138/56 H 96 10/21/17 15:32 10/21/17 15:32 10/21/17 15:32 10/21/17 15:32 10/21/17 15:32 Intake & Output 10/20/17 10/21/17 10/22/17 06:59 06:59 06:59 Intake Total 2819 2300 1330 Output Total 400 1900 Balance 2419 400 1330 Weight 76.4 kg 77.7 kg General appearance: PRESENT: no acute distress Eye exam: PRESENT: PERRLA Respiratory exam: PRESENT: clear to auscultation slava Cardiovascular exam: PRESENT: +S1, +S2 GI/Abdominal exam: PRESENT: soft Neurological exam: PRESENT: alert Results Laboratory Results: 10/21/17 04:56 10/21/17 04:56 10/21/17 10/21/17 04:56 04:56 WBC 15.6 H RBC 3.71 L Hgb 10.6 L Hct 31.7 L MCV 85 MCH 28.6 MCHC 33.5 RDW 16.1 H Plt Count 204 Seg Neutrophils % 81.6 H Lymphocytes % 8.3 L Monocytes % 9.6 Eosinophils % 0.2 Basophils % 0.3 Absolute Neutrophils 12.7 H Absolute Lymphocytes 1.3 Absolute Monocytes 1.5 H Absolute Eosinophils 0.0 Absolute Basophils 0.0 Sodium 136.4 L Potassium 3.5 L Chloride 102 Carbon Dioxide 25 Anion Gap 9 BUN 14 Creatinine 1.18 Est GFR ( Amer) 53 L Est GFR (Non-Af Amer) 44 L Glucose 96 Calcium 9.0 Total Bilirubin 0.6 AST 64 H ALT 62 H Alkaline Phosphatase 57 Total Protein 6.1 L Albumin 3.1 L Lipase 24.8 10/18/17 10/18/17 10/18/17 03:30 04:17 10:39 Creatine Kinase 104 100 CK-MB (CK-2) 1.04 Troponin I < 0.012 10/18/17 10/18/17 10/18/17 10:39 16:20 16:20 Creatine Kinase 100 CK-MB (CK-2) 0.93 0.87 Troponin I < 0.012 < 0.012 Impressions: Head CT 10/17/17 20:25 IMPRESSION: MILD CHRONIC CHANGES OF ATROPHY AND MICROVASCULAR ISCHEMIA. NO ACUTE PROCESS. EVIDENCE OF ACUTE STROKE: NO. Brain MRI with MRA 10/17/17 23:16 IMPRESSION: MILD SMALL VESSEL ISCHEMIC CHANGE IN THE [place] AND HEMISPHERIC WHITE MATTER, CHRONIC. NO MR EVIDENCE OF ACUTE ISCHEMIC CHANGE UNREMARKABLE [place] MRA EXAM. EVIDENCE OF ACUTE STROKE: NO Carotid Doppler Study 10/18/17 00:00 IMPRESSION: No flow significant stenosis at the carotid bifurcations. Antegrade pulsatile vertebral artery flow bilaterally. Head CTA 10/18/17 00:00 IMPRESSION: No acute findings. Head MRI 10/18/17 00:00 IMPRESSION: MILD SMALL VESSEL ISCHEMIC CHANGE IN THE [place] AND HEMISPHERIC WHITE MATTER, CHRONIC. NO MR EVIDENCE OF ACUTE ISCHEMIC CHANGE UNREMARKABLE [place] MRA EXAM. EVIDENCE OF ACUTE STROKE: NO Abdomen Ultrasound 10/19/17 00:00 IMPRESSION: NORMAL ABDOMINAL ULTRASOUND. Abdomen/Pelvis CT 10/20/17 00:00 IMPRESSION: NO SIGNIFICANT OR ACUTE ABDOMINAL PROCESS. Chest X-Ray 10/20/17 00:00 IMPRESSION: NO ACUTE RADIOGRAPHIC FINDING IN THE CHEST. Assessment & Plan - Diagnosis (1) Transient ischemic attack Qualifiers: Transient cerebral ischemia type: unspecified Qualified Code(s): G45.9 - Transient cerebral ischemic attack, unspecified Is this a current diagnosis for this admission?: Yes (2) Diastolic dysfunction, left ventricle Is this a current diagnosis for this admission?: Yes (3) Acute diverticulitis Is this a current diagnosis for this admission?: Yes - Plan Summary Plan Summary: Continue treatment
[2017-10-21] MEDS ORDERED: POTASSIUM CHLORIDE 20 MEQ/15 ML UDCUP PO ONE (17:00)
[2017-10-21] MEDS: DONEPEZIL HCL 5 MG TABLET PO SCH (21:42)
[2017-10-22] MEDS: METRONIDAZOLE 500 MG/NS RTU 100 ML IV SCH ×2 (05:33→14:45)
[2017-10-22] MEDS: NORMAL SALINE 1000 ML 1,000 ML IV PRN (05:33)
[2017-10-22 05:43] LABS: ANION GAP 9 (5-19); BLOOD UREA NITROGEN 13 mg/dL (7-20); CALCIUM 8.7 mg/dL (8.4-10.2); CARBON DIOXIDE 25 mmol/L (22-30); CHLORIDE 103 mmol/L (98-107); GLUCOSE 103 mg/dL (75-110); POTASSIUM 3.9 mmol/L (3.6-5.0)
[2017-10-22] MEDS: PANTOPRAZOLE SODIUM 40 MG VIAL IV SCH (09:38)
[2017-10-22] MEDS: CIPROFLOXACIN 400 MG/D5W RTU 400 MG/200 ML RTUPB IV SCH (09:39)
[2017-10-22] MEDS: ENOXAPARIN SODIUM INJ 40 MG/0.4 ML DISP.SYRIN SUBCUT SCH (09:39)
[2017-10-22] MEDS: ASPIRIN 81 MG TABLET, ENT COATED PO SCH (09:40)
[2017-10-22] MEDS: CLOPIDOGREL BISULFATE 75 MG TABLET PO SCH (09:40)
[2017-10-22] MEDS: NIFEDIPINE 30 MG TAB.ER.24 PO SCH ×2 (09:40→21:29)
[2017-10-22] MEDS: DOCUSATE SODIUM 100 MG CAPSULE PO SCH ×2 (09:40→17:18)
[2017-10-22] MEDS: LOSARTAN POTASSIUM 50 MG TABLET PO SCH ×2 (09:40→17:18)
[2017-10-22] MEDS: SITAGLIPTIN PHOSPHATE 50 MG TABLET PO SCH (09:41)
[2017-10-22] MEDS: POLYETHYLENE GLYCOL 3350 POWDER 17 GM/1 PACKET PO SCH (09:48)
--- NOTE | 2017-10-22 15:05 | PDOC PROGRESS REPORT ---
Subjective Progress Note for:: 10/22/17 Subjective:: She was seen by the bedside, she did complain of pain in the left foot but on examination foot is normal, patient is probably ready for discharge, we will discontinue IV fluids and IV antibiotic get PT consultation to get patient out of bed to chair Reason For Visit: TIA Physical Exam Vital Signs: Temp Pulse Resp BP Pulse Ox 99.4 F 84 16 148/57 H 97 10/22/17 12:00 10/22/17 12:00 10/22/17 12:00 10/22/17 12:00 10/22/17 12:00 Intake & Output 10/21/17 10/22/17 10/23/17 06:59 06:59 06:59 Intake Total 2300 2505 712 Output Total 1900 Balance 400 2505 712 Weight 77.7 kg 78.2 kg General appearance: PRESENT: no acute distress Respiratory exam: PRESENT: clear to auscultation slava Cardiovascular exam: PRESENT: +S1, +S2 GI/Abdominal exam: PRESENT: soft Neurological exam: PRESENT: alert, CN II-XII grossly intact Results Laboratory Results: 10/21/17 04:56 10/22/17 04:20 10/22/17 04:20 Sodium 137.0 Potassium 3.9 Chloride 103 Carbon Dioxide 25 Anion Gap 9 BUN 13 Creatinine 1.17 Est GFR ( Amer) 53 L Est GFR (Non-Af Amer) 44 L Glucose 103 Calcium 8.7 10/20/17 01:30 Clean Catch Midstream Urine Culture - Final NO GROWTH 2 DAYS 10/18/17 10/18/17 10/18/17 03:30 04:17 10:39 Creatine Kinase 104 100 CK-MB (CK-2) 1.04 Troponin I < 0.012 10/18/17 10/18/17 10/18/17 10:39 16:20 16:20 Creatine Kinase 100 CK-MB (CK-2) 0.93 0.87 Troponin I < 0.012 < 0.012 Impressions: Head CT 10/17/17 20:25 IMPRESSION: MILD CHRONIC CHANGES OF ATROPHY AND MICROVASCULAR ISCHEMIA. NO ACUTE PROCESS. EVIDENCE OF ACUTE STROKE: NO. Brain MRI with MRA 10/17/17 23:16 IMPRESSION: MILD SMALL VESSEL ISCHEMIC CHANGE IN THE [place] AND HEMISPHERIC WHITE MATTER, CHRONIC. NO MR EVIDENCE OF ACUTE ISCHEMIC CHANGE UNREMARKABLE [place] MRA EXAM. EVIDENCE OF ACUTE STROKE: NO Carotid Doppler Study 10/18/17 00:00 IMPRESSION: No flow significant stenosis at the carotid bifurcations. Antegrade pulsatile vertebral artery flow bilaterally. Head CTA 10/18/17 00:00 IMPRESSION: No acute findings. Head MRI 10/18/17 00:00 IMPRESSION: MILD SMALL VESSEL ISCHEMIC CHANGE IN THE [place] AND HEMISPHERIC WHITE MATTER, CHRONIC. NO MR EVIDENCE OF ACUTE ISCHEMIC CHANGE UNREMARKABLE [place] MRA EXAM. EVIDENCE OF ACUTE STROKE: NO Abdomen Ultrasound 10/19/17 00:00 IMPRESSION: NORMAL ABDOMINAL ULTRASOUND. Abdomen/Pelvis CT 10/20/17 00:00 IMPRESSION: NO SIGNIFICANT OR ACUTE ABDOMINAL PROCESS. Chest X-Ray 10/20/17 00:00 IMPRESSION: NO ACUTE RADIOGRAPHIC FINDING IN THE CHEST. Assessment & Plan - Diagnosis (1) Transient ischemic attack Qualifiers: Transient cerebral ischemia type: unspecified Qualified Code(s): G45.9 - Transient cerebral ischemic attack, unspecified Is this a current diagnosis for this admission?: Yes (2) Diastolic dysfunction, left ventricle Is this a current diagnosis for this admission?: Yes (3) Acute diverticulitis Is this a current diagnosis for this admission?: Yes - Plan Summary Plan Summary: Discontinue IV fluid, discontinue IV antibiotic
[2017-10-22] MEDS: METOPROLOL TARTRATE 50 MG TABLET PO SCH (17:18)
[2017-10-22] MEDS: CETIRIZINE 5 MG TABLET PO SCH (17:18)
[2017-10-22] MEDS: DONEPEZIL HCL 5 MG TABLET PO SCH (21:29)
[2017-10-23 05:11] LABS: ABSOLUTE EOSINOPHILS # (AUTO) 0.1 10^3/uL (0.0-0.6); ABSOLUTE LYMPHOCYTES (AUTO) 1.4 10^3/uL (0.5-4.7); ABSOLUTE MONOCYTES (AUTO) 1.1 10^3/uL (0.1-1.4); ABSOLUTE NEUT (AUTO) 6.5 10^3/uL (1.7-8.2); BASOPHILS % (AUTO) 0.3 % (0-2); EOSINOPHILS % (AUTO) 1.1 % (0-6); HEMATOCRIT 30.2 % (36.0-47.0); LYMPHOCYTES % (AUTO) 15.6 % (13-45); MEAN CORPUSCULAR HEMOGLOBIN 28.5 pg (27.0-33.4); MEAN CORPUSCULAR HGB CONC 33.2 g/dL (32.0-36.0); MEAN CORPUSCULAR VOLUME 86 fl (80-97); MONOCYTES % (AUTO) 12.3 % (3-13); PLATELET COUNT 231 10^3/uL (150-450); RED BLOOD COUNT 3.52 10^6/uL (3.72-5.28); RED CELL DISTRIBUTION WIDTH 15.9 % (11.5-14.0); SEGMENTED NEUTROPHILS % (AUTO) 70.7 % (42-78); TOTAL CELLS COUNTED % (AUTO) 100 %; WHITE BLOOD COUNT 9.2 10^3/uL (4.0-10.5)
[2017-10-23 05:38] LABS: ALANINE AMINOTRANSFERASE 40 U/L (9-52); ALKALINE PHOSPHATASE 54 U/L (38-126); ANION GAP 8 (5-19); ASPARTATE AMINO TRANSFERASE 24 U/L (14-36); BILIRUBIN,DIRECT 0.1 mg/dL (0.0-0.4); BILIRUBIN,TOTAL 0.4 mg/dL (0.2-1.3); BLOOD UREA NITROGEN 14 mg/dL (7-20); CALCIUM 9.1 mg/dL (8.4-10.2); CARBON DIOXIDE 28 mmol/L (22-30); CHLORIDE 103 mmol/L (98-107); GLUCOSE 85 mg/dL (75-110); POTASSIUM 3.8 mmol/L (3.6-5.0); SODIUM 138.6 mmol/L (137-145); TOTAL PROTEIN 5.9 g/dL (6.3-8.2)
[2017-10-23] MEDS: METOPROLOL TARTRATE 50 MG TABLET PO SCH ×2 (05:48→17:13)
--- NOTE | 2017-10-23 08:15 | EKG REPORT ---
SEVERITY:- ABNORMAL ECG - SINUS RHYTHM ATRIAL PREMATURE COMPLEXES FIRST DEGREE AV BLOCK PROBABLE ANTEROSEPTAL INFARCT, AGE INDETERM : Confirmed by: Alejandro Zheng 23-Oct-2017 08:14:55
[2017-10-23] MEDS: ENOXAPARIN SODIUM INJ 40 MG/0.4 ML DISP.SYRIN SUBCUT SCH (09:13)
[2017-10-23] MEDS: SITAGLIPTIN PHOSPHATE 50 MG TABLET PO SCH (09:13)
[2017-10-23] MEDS: ASPIRIN 81 MG TABLET, ENT COATED PO SCH (09:13)
[2017-10-23] MEDS: LOSARTAN POTASSIUM 50 MG TABLET PO SCH ×2 (09:14→17:12)
[2017-10-23] MEDS: NIFEDIPINE 30 MG TAB.ER.24 PO SCH ×2 (09:14→17:13)
[2017-10-23] MEDS: CIPROFLOXACIN HCL 500 MG TABLET PO SCH ×2 (09:14→21:07)
[2017-10-23] MEDS: METRONIDAZOLE 500 MG TABLET PO SCH ×2 (09:14→21:07)
[2017-10-23] MEDS: CLOPIDOGREL BISULFATE 75 MG TABLET PO SCH (09:15)
[2017-10-23] MEDS: DOCUSATE SODIUM 100 MG CAPSULE PO SCH ×2 (09:15→17:13)
[2017-10-23] MEDS: POLYETHYLENE GLYCOL 3350 POWDER 17 GM/1 PACKET PO SCH (09:20)
--- NOTE | 2017-10-23 13:16 | PDOC PROGRESS REPORT ---
Subjective Progress Note for:: 10/23/17 Subjective:: Patient is feeling much better Patient denied any abdominal pain Patient's denied any chest pain denied any shortness of the breath Denied any weakness Patient's white count is also normal patient have a some low-grade fever overnight Reason For Visit: TIA Physical Exam Vital Signs: Temp Pulse Resp BP Pulse Ox 99.4 F 63 18 171/60 H 96 10/23/17 07:25 10/23/17 07:25 10/23/17 07:25 10/23/17 07:25 10/23/17 07:25 Intake & Output 10/22/17 10/23/17 10/24/17 06:59 06:59 06:59 Intake Total 2505 1949 Balance 2505 194 Weight 78.2 kg 76 kg General appearance: PRESENT: no acute distress, well-developed, well-nourished Head exam: PRESENT: atraumatic, normocephalic Eye exam: PRESENT: conjunctiva pink, EOMI, PERRLA. ABSENT: scleral icterus Ear exam: PRESENT: normal external ear exam Mouth exam: PRESENT: moist, tongue midline Neck exam: PRESENT: full ROM. ABSENT: carotid bruit, JVD, lymphadenopathy, thyromegaly Respiratory exam: PRESENT: clear to auscultation slava Cardiovascular exam: PRESENT: RRR. ABSENT: diastolic murmur, rubs, systolic murmur Pulses: PRESENT: normal dorsalis pedis pul, +2 pedal pulses bilateral Vascular exam: PRESENT: normal capillary refill GI/Abdominal exam: PRESENT: normal bowel sounds, soft. ABSENT: distended, guarding, mass, organolmegaly, rebound, tenderness Rectal exam: PRESENT: deferred Neurological exam: PRESENT: alert, awake, oriented to person, oriented to place , oriented to time, oriented to situation, CN II-XII grossly intact. ABSENT: motor sensory deficit Psychiatric exam: PRESENT: appropriate affect, normal mood. ABSENT: homicidal ideation, suicidal ideation Skin exam: PRESENT: dry, intact, warm. ABSENT: cyanosis, rash Results Laboratory Results: 10/23/17 04:21 10/23/17 04:21 10/23/17 10/23/17 04:21 04:21 WBC 9.2 RBC 3.52 L Hgb 10.0 L Hct 30.2 L MCV 86 MCH 28.5 MCHC 33.2 RDW 15.9 H Plt Count 231 Seg Neutrophils % 70.7 Lymphocytes % 15.6 Monocytes % 12.3 Eosinophils % 1.1 Basophils % 0.3 Absolute Neutrophils 6.5 Absolute Lymphocytes 1.4 Absolute Monocytes 1.1 Absolute Eosinophils 0.1 Absolute Basophils 0.0 Sodium 138.6 Potassium 3.8 Chloride 103 Carbon Dioxide 28 Anion Gap 8 BUN 14 Creatinine 1.15 Est GFR ( Amer) 55 L Est GFR (Non-Af Amer) 45 L Glucose 85 Calcium 9.1 Total Bilirubin 0.4 AST 24 ALT 40 Alkaline Phosphatase 54 Total Protein 5.9 L Albumin 3.0 L 10/20/17 01:30 Clean Catch Midstream Urine Culture - Final NO GROWTH 2 DAYS 10/18/17 10/18/17 10/18/17 03:30 04:17 10:39 Creatine Kinase 104 100 CK-MB (CK-2) 1.04 Troponin I < 0.012 10/18/17 10/18/17 10/18/17 10:39 16:20 16:20 Creatine Kinase 100 CK-MB (CK-2) 0.93 0.87 Troponin I < 0.012 < 0.012 Impressions: Head CT 10/17/17 20:25 IMPRESSION: MILD CHRONIC CHANGES OF ATROPHY AND MICROVASCULAR ISCHEMIA. NO ACUTE PROCESS. EVIDENCE OF ACUTE STROKE: NO. Brain MRI with MRA 10/17/17 23:16 IMPRESSION: MILD SMALL VESSEL ISCHEMIC CHANGE IN THE [place] AND HEMISPHERIC WHITE MATTER, CHRONIC. NO MR EVIDENCE OF ACUTE ISCHEMIC CHANGE UNREMARKABLE [place] MRA EXAM. EVIDENCE OF ACUTE STROKE: NO Carotid Doppler Study 10/18/17 00:00 IMPRESSION: No flow significant stenosis at the carotid bifurcations. Antegrade pulsatile vertebral artery flow bilaterally. Head CTA 10/18/17 00:00 IMPRESSION: No acute findings. Head MRI 10/18/17 00:00 IMPRESSION: MILD SMALL VESSEL ISCHEMIC CHANGE IN THE [place] AND HEMISPHERIC WHITE MATTER, CHRONIC. NO MR EVIDENCE OF ACUTE ISCHEMIC CHANGE UNREMARKABLE [place] MRA EXAM. EVIDENCE OF ACUTE STROKE: NO Abdomen Ultrasound 10/19/17 00:00 IMPRESSION: NORMAL ABDOMINAL ULTRASOUND. Abdomen/Pelvis CT 10/20/17 00:00 IMPRESSION: NO SIGNIFICANT OR ACUTE ABDOMINAL PROCESS. Chest X-Ray 10/20/17 00:00 IMPRESSION: NO ACUTE RADIOGRAPHIC FINDING IN THE CHEST. Assessment & Plan - Diagnosis (1) Acute cerebrovascular accident Is this a current diagnosis for this admission?: Yes Plan: Currently continues to current medications (2) Hypertension Qualifiers: Hypertension type: essential hypertension Qualified Code(s): I10 - Essential (primary) hypertension Is this a current diagnosis for this admission?: Yes Plan: Adjust the dose of the medications (3) Hyperlipidemia Qualifiers: Hyperlipidemia type: unspecified Qualified Code(s): E78.5 - Hyperlipidemia , unspecified Is this a current diagnosis for this admission?: Yes Plan: Currently hold the Lipitor due to the abnormal LFT (4) Congestive heart failure Qualifiers: Heart failure type: diastolic Heart failure chronicity: chronic Qualified Code(s): I50.32 - Chronic diastolic (congestive) heart failure Is this a current diagnosis for this admission?: Yes Plan: Scheduled echocardiogram today (5) Bradycardia Is this a current diagnosis for this admission?: Yes Plan: Continues to hold the beta-meagan (6) Dementia Qualifiers: Dementia type: unspecified type Dementia behavioral disturbance: without behavioral disturbance Qualified Code(s): F03.90 - Unspecified dementia without behavioral disturbance Is this a current diagnosis for this admission?: Yes Plan: Continues to Aricept (7) Type 2 diabetes mellitus Qualifiers: Diabetes mellitus fdc insulin use: without fdc use Diabetes mellitus complication status: with unspecified complications Qualified Code(s) : E11.8 - Type 2 diabetes mellitus with unspecified complications Is this a current diagnosis for this admission?: Yes Plan: Continues to sliding scaleSince recent A1c is 5.9 (8) Left sided abdominal pain Is this a current diagnosis for this admission?: Yes Plan: Currently all resolved (9) Low grade fever Is this a current diagnosis for this admission?: Yes Plan: We will repeat the CBC Chem-7 as per discussed with Dr. Lazaro continues to p.o. Cipro and Flagyl - Time Time Spent with patient: 15-24 minutes Medications reviewed and adjusted accordingly: Yes Anticipated discharge: Other Within: Other - Inpatient Certification Medical Necessity: Need Close Monitoring Due to Risk of Patient Decompensation Post Hospital Care: D/C Director Of Video Analytics Documentation - Plan Summary Plan Summary: Clinically patient's looks much better continues to current medications
[2017-10-23] MEDS: CETIRIZINE 5 MG TABLET PO SCH (17:19)
[2017-10-23] MEDS: TRAMADOL HCL 50 MG TABLET PO PRN (19:53)
[2017-10-23] MEDS: DONEPEZIL HCL 5 MG TABLET PO SCH (21:07)
[2017-10-24] MEDS: NIFEDIPINE 30 MG TAB.ER.24 PO SCH (05:12)
[2017-10-24] MEDS: METOPROLOL TARTRATE 50 MG TABLET PO SCH (05:12)
[2017-10-24 06:49] LABS: ABSOLUTE BASOPHILS # (AUTO) 0.1 10^3/uL (0.0-0.2); ABSOLUTE EOSINOPHILS # (AUTO) 0.2 10^3/uL (0.0-0.6); ABSOLUTE LYMPHOCYTES (AUTO) 1.4 10^3/uL (0.5-4.7); ABSOLUTE MONOCYTES (AUTO) 1.1 10^3/uL (0.1-1.4); ABSOLUTE NEUT (AUTO) 4.4 10^3/uL (1.7-8.2); BASOPHILS % (AUTO) 0.8 % (0-2); EOSINOPHILS % (AUTO) 2.4 % (0-6); HEMATOCRIT 30.7 % (36.0-47.0); HEMOGLOBIN 10.4 g/dL (12.0-15.5); LYMPHOCYTES % (AUTO) 20.3 % (13-45); MEAN CORPUSCULAR HEMOGLOBIN 28.8 pg (27.0-33.4); MEAN CORPUSCULAR HGB CONC 33.8 g/dL (32.0-36.0); MEAN CORPUSCULAR VOLUME 85 fl (80-97); PLATELET COUNT 252 10^3/uL (150-450); RED CELL DISTRIBUTION WIDTH 15.7 % (11.5-14.0); SEGMENTED NEUTROPHILS % (AUTO) 61.5 % (42-78); TOTAL CELLS COUNTED % (AUTO) 100 %; WHITE BLOOD COUNT 7.1 10^3/uL (4.0-10.5)
[2017-10-24 07:11] LABS: ALANINE AMINOTRANSFERASE 46 U/L (9-52); ALBUMIN 3.1 g/dL (3.5-5.0); ALKALINE PHOSPHATASE 52 U/L (38-126); ANION GAP 10 (5-19); ASPARTATE AMINO TRANSFERASE 55 U/L (14-36); BILIRUBIN,DIRECT 0.2 mg/dL (0.0-0.4); BILIRUBIN,TOTAL 0.3 mg/dL (0.2-1.3); BLOOD UREA NITROGEN 15 mg/dL (7-20); CALCIUM 9.1 mg/dL (8.4-10.2); CARBON DIOXIDE 28 mmol/L (22-30); CHLORIDE 102 mmol/L (98-107); GLUCOSE 86 mg/dL (75-110); POTASSIUM 3.6 mmol/L (3.6-5.0); SODIUM 139.7 mmol/L (137-145); TOTAL PROTEIN 6.1 g/dL (6.3-8.2)
[2017-10-24] MEDS: LOSARTAN POTASSIUM 50 MG TABLET PO SCH (09:35)
[2017-10-24] MEDS: ENOXAPARIN SODIUM INJ 40 MG/0.4 ML DISP.SYRIN SUBCUT SCH (09:35)
[2017-10-24] MEDS: ASPIRIN 81 MG TABLET, ENT COATED PO SCH (09:35)
[2017-10-24] MEDS: CLOPIDOGREL BISULFATE 75 MG TABLET PO SCH (09:35)
[2017-10-24] MEDS: SITAGLIPTIN PHOSPHATE 50 MG TABLET PO SCH (09:36)
[2017-10-24] MEDS: CIPROFLOXACIN HCL 500 MG TABLET PO SCH (09:36)
[2017-10-24] MEDS: METRONIDAZOLE 500 MG TABLET PO SCH (09:36)
[2017-10-24] MEDS: DOCUSATE SODIUM 100 MG CAPSULE PO SCH (09:36)
[2017-10-24] MEDS: POLYETHYLENE GLYCOL 3350 POWDER 17 GM/1 PACKET PO SCH (09:40)
[2017-10-24 10:38] VITALS: BP 143/54
--- NOTE | 2017-10-24 11:30 | PDOC DISCHARGE SUMMARY ---
General - Admit/Disc Date/PCP Admission Date/Primary Care Provider: 10/17/17 23:47 TANI MARSH MD Discharge Date: 10/24/17 - Discharge Diagnosis (1) Acute cerebrovascular accident Is this a current diagnosis for this admission?: Yes Summary: Patient's all workup is stable including the MRI of the head is negative most likely a TIA currently continues to aspirin Plavix and currently hold the statin due to the elevated LFT but will restart after completely resolved (2) Hypertension Is this a current diagnosis for this admission?: Yes Summary: Discussed with the patient about low-sodium diet check her blood pressures daily adjust the medications keep her blood pressure is 130 range (3) Hyperlipidemia Is this a current diagnosis for this admission?: Yes Summary: Continues with a high-dose statin currently hold it until the all LFTs currently resolved (4) Congestive heart failure Is this a current diagnosis for this admission?: Yes Summary: Currently follow with the cardiologyCurrently take lasix as per d/w with cardiology and further evaluate (5) Bradycardia Is this a current diagnosis for this admission?: Yes Summary: stable (6) Dementia Is this a current diagnosis for this admission?: Yes Summary: Continues to Aricept (7) Type 2 diabetes mellitus Is this a current diagnosis for this admission?: Yes Summary: Currently all stable continues to current home medications (8) Left sided abdominal pain Is this a current diagnosis for this admission?: Yes Summary: Very unclear etiology very extensive workup done including the CT scan of the abdomen and pelvis twice and is seen by the campground caretaker and the general surgery and suggest as per discussed with Dr. Lazaro continues to Cipro and Flagyl for another week and follow outpatient patient's currently denied any abdominal pain (9) Low grade fever Is this a current diagnosis for this admission?: Yes Summary: Currently all resolved (10) Inguinal hernia of left side without obstruction or gangrene Is this a current diagnosis for this admission?: Yes Summary: As per surgery follow outpatient - Additional Information Resuscitation Status: Full Code Discharge Diet: Cardiac Discharge Activity: Activity As Tolerated Prescriptions: Aspirin [Ecotrin 81 mg EC Tablet] 81 mg PO DAILY #30 tabec Ciprofloxacin HCl [Cipro 500 mg Tablet] 500 mg PO Q12 #14 tablet Clopidogrel Bisulfate [Plavix 75 mg Tablet] 75 mg PO DAILY #30 tablet Losartan Potassium [Cozaar 50 mg Tablet] 50 mg PO BID #60 tablet Metronidazole [Flagyl 500 mg Tablet] 500 mg PO Q12 #14 tablet Nifedipine [Procardia XL 30 mg Tablet] 60 mg PO Q12A #60 tab.er.24 Tramadol HCl [Ultram 50 mg Tablet] 50 mg PO Q8HP PRN #20 tablet PRN Reason: Home Medications: Bisacodyl [Dulcolax 5 mg Tablet] 5 mg PO DAILYP PRN 10/18/17 Donepezil HCl [Aricept] 5 mg PO QHS 10/18/17 Levocetirizine Dihydrochloride [Xyzal] 5 mg PO QPM 10/18/17 Metoprolol Tartrate [Lopressor 50 mg Tablet] 50 mg PO Q12 10/18/17 Nifedipine [Nifedipine ER] 30 mg PO Q12 10/18/17 Omeprazole 40 mg PO DAILY 10/18/17 Sitagliptin Phosphate [Januvia] 100 mg PO DAILY 10/18/17 Zolpidem Tartrate [Ambien 5 mg Tablet] 5 mg PO QHS 10/18/17 Aspirin [Ecotrin 81 mg EC Tablet] 81 mg PO DAILY #30 tabec 10/24/17 Ciprofloxacin HCl [Cipro 500 mg Tablet] 500 mg PO Q12 #14 tablet 10/24/17 Clopidogrel Bisulfate [Plavix 75 mg Tablet] 75 mg PO DAILY #30 tablet 10/24/17 Losartan Potassium [Cozaar 50 mg Tablet] 50 mg PO BID #60 tablet 10/24/17 Metronidazole [Flagyl 500 mg Tablet] 500 mg PO Q12 #14 tablet 10/24/17 Nifedipine [Procardia XL 30 mg Tablet] 60 mg PO Q12A #60 tab.er.24 10/24/17 Tramadol HCl [Ultram 50 mg Tablet] 50 mg PO Q8HP PRN #20 tablet 10/24/17 History of Present Illness History of Present Illness: NAREN TERRY is a 81 year old female This is a 81-year-old female with the history of the type 2 diabetes mellitus with recent A1c is 5.9 with the history of the hyperlipidemia with recent LDL is 79 and a history of congestive heart failure and history of dementia and arthritis and hypertension came to the emergency departmentWith a sudden onset of the left-sided weakness with unable to hold the cup in the whole left side feeling weird and not feeling any sensationsAnd emergency department patient initial CT of the head was negative and patient's other blood work was stable and ER physician thinks possible TIA and admitting for the stroke protocol in the hospital Overnight nurses notice the patient have a more left-sided little bit more weakness little bit slower speech and CT angiogram was done and a repeat CT scan of the head was done was all stable When I saw the patient patient is currently doing well alert awake and oriented patients move all 4 extremity denied any visual problem denied any headache denied any dizziness Patient with no focal neurological weakness at this point Patient's heart rate is running in the lower end patient is currently taking the beta-meagan metoprolol 50 mg twice a day Patient had a last echo was done in 2 years back was all stable within normal EF with some mild diastolic dysfunctions and MRI of the head was done in the past was all stable Patient have underlying mild dementia currently taking the Aricept Physical Exam Vital Signs: Temp Pulse Resp BP Pulse Ox 98.9 F 64 18 143/54 H 94 10/24/17 10:36 10/24/17 10:36 10/24/17 10:36 10/24/17 10:36 10/24/17 10:36 Intake & Output 10/23/17 10/24/17 10/25/17 06:59 06:59 06:59 Intake Total 194 1030 Output Total 400 Balance 194 630 Weight 76 kg 75.6 kg General appearance: PRESENT: no acute distress, well-developed, well-nourished Head exam: PRESENT: atraumatic, normocephalic Eye exam: PRESENT: conjunctiva pink, EOMI, PERRLA. ABSENT: scleral icterus Ear exam: PRESENT: normal external ear exam Mouth exam: PRESENT: moist, tongue midline Neck exam: PRESENT: full ROM. ABSENT: carotid bruit, JVD, lymphadenopathy, thyromegaly Respiratory exam: PRESENT: clear to auscultation slava Cardiovascular exam: PRESENT: RRR. ABSENT: diastolic murmur, rubs, systolic murmur Pulses: PRESENT: normal dorsalis pedis pul, +2 pedal pulses bilateral Vascular exam: PRESENT: normal capillary refill GI/Abdominal exam: PRESENT: normal bowel sounds, soft. ABSENT: distended, guarding, mass, organolmegaly, rebound, tenderness Rectal exam: PRESENT: deferred Extremities exam: ABSENT: full ROM, left AKA, right AKA, left BKA, right BKA, calf tenderness, joint swelling, pedal edema, tenderness, other Musculoskeletal exam: PRESENT: ambulatory Neurological exam: PRESENT: alert, awake, oriented to person, oriented to place , oriented to time, oriented to situation, CN II-XII grossly intact. ABSENT: motor sensory deficit Psychiatric exam: PRESENT: appropriate affect, normal mood. ABSENT: homicidal ideation, suicidal ideation Skin exam: PRESENT: dry, intact, warm. ABSENT: cyanosis, rash Results Laboratory Results: 10/24/17 06:33 10/24/17 06:33 10/23/17 10/24/17 10/24/17 14:22 06:33 06:33 WBC 7.1 RBC 3.60 L Hgb 10.4 L Hct 30.7 L MCV 85 MCH 28.8 MCHC 33.8 RDW 15.7 H Plt Count 252 Seg Neutrophils % 61.5 Lymphocytes % 20.3 Monocytes % 15.0 H Eosinophils % 2.4 Basophils % 0.8 Absolute Neutrophils 4.4 Absolute Lymphocytes 1.4 Absolute Monocytes 1.1 Absolute Eosinophils 0.2 Absolute Basophils 0.1 Sodium 139.7 Potassium 3.6 Chloride 102 Carbon Dioxide 28 Anion Gap 10 BUN 15 Creatinine 1.13 Est GFR ( Amer) 56 L Est GFR (Non-Af Amer) 46 L Glucose 86 Lactic Acid 0.9 Calcium 9.1 Total Bilirubin 0.3 AST 55 H ALT 46 Alkaline Phosphatase 52 Total Protein 6.1 L Albumin 3.1 L 10/18/17 10/18/17 10/18/17 03:30 04:17 10:39 Creatine Kinase 104 100 CK-MB (CK-2) 1.04 Troponin I < 0.012 10/18/17 10/18/17 10/18/17 10:39 16:20 16:20 Creatine Kinase 100 CK-MB (CK-2) 0.93 0.87 Troponin I < 0.012 < 0.012 Impressions: Head CT 10/17/17 20:25 IMPRESSION: MILD CHRONIC CHANGES OF ATROPHY AND MICROVASCULAR ISCHEMIA. NO ACUTE PROCESS. EVIDENCE OF ACUTE STROKE: NO. Brain MRI with MRA 10/17/17 23:16 IMPRESSION: MILD SMALL VESSEL ISCHEMIC CHANGE IN THE [place]IVKA AND HEMISPHERIC WHITE MATTER, CHRONIC. NO MR EVIDENCE OF ACUTE ISCHEMIC CHANGE UNREMARKABLE [place] MRA EXAM. EVIDENCE OF ACUTE STROKE: NO Carotid Doppler Study 10/18/17 00:00 IMPRESSION: No flow significant stenosis at the carotid bifurcations. Antegrade pulsatile vertebral artery flow bilaterally. Head CTA 10/18/17 00:00 IMPRESSION: No acute findings. Head MRI 10/18/17 00:00 IMPRESSION: MILD SMALL VESSEL ISCHEMIC CHANGE IN THE [place] AND HEMISPHERIC WHITE MATTER, CHRONIC. NO MR EVIDENCE OF ACUTE ISCHEMIC CHANGE UNREMARKABLE [place] MRA EXAM. EVIDENCE OF ACUTE STROKE: NO Abdomen Ultrasound 10/19/17 00:00 IMPRESSION: NORMAL ABDOMINAL ULTRASOUND. Abdomen/Pelvis CT 10/20/17 00:00 IMPRESSION: NO SIGNIFICANT OR ACUTE ABDOMINAL PROCESS. Chest X-Ray 10/20/17 00:00 IMPRESSION: NO ACUTE RADIOGRAPHIC FINDING IN THE CHEST. Qualifiers - * PATEINT BEING DISCHARGED WITH ANY OF THE FOLLOWING DIAGNOSIS?: No Plan Time Spent: Greater than 30 Minutes - Very extensive discussed with the patient and the family on and off several times regarding the all the test reports patient's currently all stable discussed with all coordinate consultants patient 's discharge home with the home health and physical therapy and follow-up outpatients
--- NOTE | 2017-10-24 18:48 | PDOC PROGRESS REPORT ---
Subjective Progress Note for:: 10/24/17 Subjective:: Patient was seen again at the request of Dr. wanted me to make sure that patient was okay for discharge from cardiac standpoint. He wanted me to look over the medications. Patient was seen in the morning she seems to be doing well. She has ambulated without any difficulty. Patient denied any chest, neck pain. She denied any abdominal discomfort. Patient claims she feels fine and ready to go home. Patient was on Lasix at home but this was discontinued during this hospitalization. Patient does describe history of intermittent pedal edema. Reason For Visit: TIA Physical Exam Vital Signs: Temp Pulse Resp BP Pulse Ox 98.9 F 64 18 143/54 H 94 10/24/17 10:36 10/24/17 10:36 10/24/17 10:36 10/24/17 10:36 10/24/17 10:36 Intake & Output 10/23/17 10/24/17 10/25/17 06:59 06:59 06:59 Intake Total 194 1030 Output Total 400 Balance 194 630 Weight 76 kg 75.6 kg Exam: GENERAL: well-nourished and in no acute distress. Alert and oriented x3 HEAD: Atraumatic, normocephalic. EYES: Pupils equal round and reactive to light, extraocular movements intact, sclera anicteric, conjunctiva are normal. ENT: TMs normal, nares patent, oropharynx clear without exudates. Moist mucous membranes. No oral ulcerations or bleeding gums noted NECK: supple without lymphadenopathy. Trachea is central. No cervical or axillary lymphadenopathy noted. Carotids are 2+, JVD WNL LUNGS: Respiration seems nonlabored, no significant accessory muscle action noted. Breath sounds clear to auscultation bilaterally and equal noted. No wheezes rales or rhonchi noted. No significant dullness noted on percussion. CHEST: Palpation of the chest wall shows no significant chest wall tenderness. No other significant abnormalities noted. HEART: [employer], No PSH, 1/6 ROSS aortic area, 1/6 posey systolic murmur mitral area, no rubs, no gallops. ABDOMEN: Soft, no significant tenderness appreciated, normoactive bowel sounds. No guarding, no rebound. No rigidity noted . No masses appreciated. EXTREMITIES: Pedal pulses are 1-2+, no calf tenderness noted. No clubbing or cyanosis. negative pedal edema noted NEUROLOGICAL: Focused neurological exam showed no significant neurologic deficit. Normal speech, no focal weakness appreciated. PSYCH: Normal mood, normal affect. Judgment and insight within normal limits. SKIN: No significant ecchymosis, skin is noted to be warm. MUSCULOSKELETAL EXAM: No significant acute joint swelling noted. Results Laboratory Results: 10/24/17 06:33 10/24/17 06:33 10/23/17 10/24/17 10/24/17 14:22 06:33 06:33 WBC 7.1 RBC 3.60 L Hgb 10.4 L Hct 30.7 L MCV 85 MCH 28.8 MCHC 33.8 RDW 15.7 H Plt Count 252 Seg Neutrophils % 61.5 Lymphocytes % 20.3 Monocytes % 15.0 H Eosinophils % 2.4 Basophils % 0.8 Absolute Neutrophils 4.4 Absolute Lymphocytes 1.4 Absolute Monocytes 1.1 Absolute Eosinophils 0.2 Absolute Basophils 0.1 Sodium 139.7 Potassium 3.6 Chloride 102 Carbon Dioxide 28 Anion Gap 10 BUN 15 Creatinine 1.13 Est GFR ( Amer) 56 L Est GFR (Non-Af Amer) 46 L Glucose 86 Lactic Acid 0.9 Calcium 9.1 Total Bilirubin 0.3 AST 55 H ALT 46 Alkaline Phosphatase 52 Total Protein 6.1 L Albumin 3.1 L 10/18/17 10/18/17 10/18/17 03:30 04:17 10:39 Creatine Kinase 104 100 CK-MB (CK-2) 1.04 Troponin I < 0.012 10/18/17 10/18/17 10/18/17 10:39 16:20 16:20 Creatine Kinase 100 CK-MB (CK-2) 0.93 0.87 Troponin I < 0.012 < 0.012 EKG Comments: Throughout this admission telemetry strips were reviewed. Patient noted to have atrial and ventricular ectopics but no sustained tachycardia or bradycardia noted. No significant pauses were noted. Impressions: Head CT 10/17/17 20:25 IMPRESSION: MILD CHRONIC CHANGES OF ATROPHY AND MICROVASCULAR ISCHEMIA. NO ACUTE PROCESS. EVIDENCE OF ACUTE STROKE: NO. Brain MRI with MRA 10/17/17 23:16 IMPRESSION: MILD SMALL VESSEL ISCHEMIC CHANGE IN THE [place] AND HEMISPHERIC WHITE MATTER, CHRONIC. NO MR EVIDENCE OF ACUTE ISCHEMIC CHANGE UNREMARKABLE [place] MRA EXAM. EVIDENCE OF ACUTE STROKE: NO Carotid Doppler Study 10/18/17 00:00 IMPRESSION: No flow significant stenosis at the carotid bifurcations. Antegrade pulsatile vertebral artery flow bilaterally. Head CTA 10/18/17 00:00 IMPRESSION: No acute findings. Head MRI 10/18/17 00:00 IMPRESSION: MILD SMALL VESSEL ISCHEMIC CHANGE IN THE [place] AND HEMISPHERIC WHITE MATTER, CHRONIC. NO MR EVIDENCE OF ACUTE ISCHEMIC CHANGE UNREMARKABLE [place] MRA EXAM. EVIDENCE OF ACUTE STROKE: NO Abdomen Ultrasound 10/19/17 00:00 IMPRESSION: NORMAL ABDOMINAL ULTRASOUND. Abdomen/Pelvis CT 10/20/17 00:00 IMPRESSION: NO SIGNIFICANT OR ACUTE ABDOMINAL PROCESS. Chest X-Ray 10/20/17 00:00 IMPRESSION: NO ACUTE RADIOGRAPHIC FINDING IN THE CHEST. Assessment & Plan - Diagnosis (1) TIA (transient ischemic attack) Qualifiers: Transient cerebral ischemia type: unspecified Qualified Code(s): G45.9 - Transient cerebral ischemic attack, unspecified Is this a current diagnosis for this admission?: Yes (2) Bradycardia Is this a current diagnosis for this admission?: Yes (3) Dementia Qualifiers: Dementia type: unspecified type Dementia behavioral disturbance: without behavioral disturbance Qualified Code(s): F03.90 - Unspecified dementia without behavioral disturbance Is this a current diagnosis for this admission?: Yes (4) Hyperlipidemia Qualifiers: Hyperlipidemia type: unspecified Qualified Code(s): E78.5 - Hyperlipidemia , unspecified Is this a current diagnosis for this admission?: Yes (5) Hypertension Qualifiers: Hypertension type: essential hypertension Qualified Code(s): I10 - Essential (primary) hypertension Is this a current diagnosis for this admission?: Yes (6) Type 2 diabetes mellitus Qualifiers: Diabetes mellitus medical terminologist insulin use: without medical terminologist use Diabetes mellitus complication status: with unspecified complications Qualified Code(s) : E11.8 - Type 2 diabetes mellitus with unspecified complications Is this a current diagnosis for this admission?: Yes - Notes Notes: As regards patient currently stated diagnosis, there has been no recurrence of transient ischemic attacks. Bradycardia improved after reduction in beta- meagan dose. Blood pressure has been intermittently elevated but otherwise stable. Patient has shown significant improvement throughout but gradually this admission. Patient seems to be on a good regimen at this point. However since patient has intermittent pedal edema, and was on Lasix at home, which for the reason was not even on the list of medication, feel that patient should be restarted back on Lasix but at half the dose she was taking at home. Dr. Pederson to check the medications at home and adjust at half dose. I have offered my card for patient to follow in the office. Patient to report any further problems. All telemetry strips were reviewed. Patient noted to have no significant sustained tachycardia or bradycardia. Patient okayed for discharge. Will sign off. - Time Time with patient: 15-25 minutes - Patient remains full code. More than 50% of the time spent coordinating care, discussing management plans with involved caregivers. Management plans discussed with involved personnels. Medical decision making was of moderate to high complexity, patient's has multiple comorbidities. Medications reviewed and adjusted accordingly: Yes
== END 2017-10-24 12:34 | disposition home or self-care (01) | DRG 69 ==
LOC: ER 20:17 → EH 23:47 → 3W 10-18 01:20
PROVIDERS: ADMIT Family Medicine; ATTEND Family Medicine
DX: G45.9 Transient cerebral ischemic attack, unspecified (principal); I13.0 Hypertensive heart and chronic kidney disease with heart failure and stage 1 through stage 4 chronic kidney disease, or unspecified chronic kidney disease; I50.32 Chronic diastolic (congestive) heart failure; R00.1 Bradycardia, unspecified; F03.90 Unspecified dementia, unspecified severity, without behavioral disturbance, psychotic disturbance, mood disturbance, and anxiety; K40.90 Unilateral inguinal hernia, without obstruction or gangrene, not specified as recurrent; E78.00 Pure hypercholesterolemia, unspecified; E11.22 Type 2 diabetes mellitus with diabetic chronic kidney disease; N18.9 Chronic kidney disease, unspecified; K21.9 Gastro-esophageal reflux disease without esophagitis; M19.90 Unspecified osteoarthritis, unspecified site; D63.1 Anemia in chronic kidney disease; M40.209 Unspecified kyphosis, site unspecified; Z79.899 Other long term (current) drug therapy; Z90.710 Acquired absence of both cervix and uterus; Z83.3 Family history of diabetes mellitus; Z82.49 Family history of ischemic heart disease and other diseases of the circulatory system
CPT/HCPCS: 36415; 70450; 70496; 70544; 70551; 71045; 71046; 74176; 76700; 80048; 80053; 80076; 81001; 82550; 82553; 82962; 83605; 83690; 84484; 85025; 87040; 87086; 93005; 93010; 93306; 93880; 99285; G8978-GP; G8979-GP; G8987-GO; G8988-GO; J0360; J0744; J1650; J1815; J2405; J3480; J3490; J7030; S0164

== ENCOUNTER 2018-01-07 12:16 | Emergency (ER) | payer MEDICARE, OTHER ==
[2018-01-07] MEDS ORDERED: ASPIRIN 81 MG TABLET, CHEWABLE PO ONE (13:20)
--- NOTE | 2018-01-07 13:27 | ER Document Report ---
ED Medical Screen (RME) - General Chief Complaint: Chest Pain Stated Complaint: DIZZINESS Time Seen by Provider: 01/07/18 13:20 Mode of Arrival: Ambulatory Information source: Patient Notes: 82-year-old female presents with sudden episode of left-sided arm pain radiating to the neck to the head lasting 3-4 seconds. Patient notes since then she has been feeling tired denies a history of cardiac issues admits to TIA in the past I have greeted and performed a rapid initial assessment of this patient. A comprehensive ED assessment and evaluation of the patient, analysis of test results and completion of the medical decision making process will be conducted by additional ED providers. PHYSICAL EXAMINATION: GENERAL: Well-appearing, well-nourished and in no acute distress. HEAD: Atraumatic, normocephalic. EYES: Pupils equal round extraocular movements intact, conjunctiva are normal. ENT: Nares patent NECK: Normal range of motion LUNGS: No respiratory distress Musculoskeletal: Normal range of motion NEUROLOGICAL: Normal speech, normal gait. PSYCH: Normal mood, normal affect. SKIN: Warm, Dry, normal turgor, no rashes or lesions noted. TRAVEL OUTSIDE OF THE [place] IN LAST 30 DAYS: No - Related Data Allergies/Adverse Reactions: No Known Allergies Allergy (Verified 01/07/18 13:10) Past Medical History - Social History Chew tobacco use (# tins/day): No Frequency of alcohol use: None Drug Abuse: None - Past Medical History Cardiac Medical History: Reports: Hx Congestive Heart Failure, Hx Hypercholesterolemia, Hx Hypertension Denies: Hx Atrial Fibrillation, Hx Coronary Artery Disease, Hx DVT, Hx Heart Attack, Hx Peripheral Vascular Disease, Hx Pulmonary Embolism, Hx Heart Murmur Pulmonary Medical History: Denies: Hx Asthma, Hx Bronchitis, Hx COPD, Hx Pneumonia, Hx Intubation, Hx Respiratory Failure, Hx Sleep Apnea, Hx Tuberculosis Endocrine Medical History: Reports: Hx Diabetes Mellitus Type 2 Renal/ Medical History: Denies: Hx Peritoneal Dialysis GI Medical History: Reports: Hx Gastroesophageal Reflux Disease Musculoskeltal Medical History: Reports Hx Arthritis Past Surgical History: Reports: Hx Hysterectomy, Hx Orthopedic Surgery - Immunizations History of Influenza Vaccine for 04/2017 - 09/2017 Season: Yes Influenza Administration Date for 04/2017 - 09/2017 Season: 04/09/17 Physical Exam - Vital signs Vitals: Temp Pulse Resp BP Pulse Ox 98.0 F 59 L 18 137/69 H 96 01/07/18 12:44 01/07/18 12:44 01/07/18 12:44 01/07/18 12:44 01/07/18 12:44 Course - Vital Signs Vital signs: Temp Pulse Resp BP Pulse Ox 98.0 F 59 L 18 137/69 H 96 01/07/18 12:44 01/07/18 12:44 01/07/18 12:44 01/07/18 12:44 01/07/18 12:44 Doctor's Discharge - Discharge Referrals: TANI MARSH MD [Primary Care Provider] - Follow up as needed
--- NOTE | 2018-01-07 14:08 | RADIOLOGY REPORT (SQ) ---
EXAM DESCRIPTION: CT HEAD WITHOUT COMPLETED DATE/TIME: 01/07/2018 1:44 pm REASON FOR STUDY: headache hx of tia COMPARISON: Noncontrast CT head 10/18/2017. TECHNIQUE: Axial images acquired through the brain without intravenous contrast. Images reviewed wi th bone, brain and subdural windows. Images stored on PACS. All CT scanners at this facility use dose modulation, iterative reconstruction, and/or weight based d osing when appropriate to reduce radiation dose to as low as reasonably achievable (ALARA). [facility]: Dose Right [facility]: CareDose [facility]: Dose Right [facility]: Teradose 4D [facility]: Smart Twitch RADIATION DOSE: CT Rad equipment meets quality standard of care and radiation dose reduction techniq ues were employed. CTDIvol: 53.2 mGy. DLP: 911 mGy-cm. mGy. LIMITATIONS: None. FINDINGS: VENTRICLES: Mildly prominent. CEREBRUM: No mass effect. No hemorrhage. No midline shift. Areas of low density in the white matte r most likely due to chronic micro-vascular ischemic change. No evidence for acute territorial infar ction. CEREBELLUM: No hemorrhage. No alteration of density. No evidence for acute infarction. EXTRAAXIAL SPACES: Age-related involutional change. No fluid collections. ORBITS AND GLOBE: Symmetrical contour of the globes. CALVARIUM: No depressed fracture. PARANASAL SINUSES: No air-fluid level. SOFT TISSUES: No hematoma. IMPRESSION: No acute intracranial hemorrhage or acute territorial infarct. Chronic changes of atrop hy and microvascular ischemia. EVIDENCE OF ACUTE STROKE: NO. COMMENT: Quality ID # [id number]: Final reports with documentation of one or more dose reduction techniques (e.g., Automated exposure control, adjustment of the mA and/or kV according to patient size, use of iterative reconstruction technique) TECHNICAL DOCUMENTATION: JOB ID: [id number] [employer]- All Rights Reserved Reading location - IP/workstation name: [email or web address]
--- NOTE | 2018-01-07 14:10 | RADIOLOGY REPORT (SQ) ---
EXAM DESCRIPTION: CHEST SINGLE VIEW COMPLETED DATE/TIME: 01/07/2018 1:39 pm REASON FOR STUDY: chest pain COMPARISON: Chest x-ray 10/20/2017. EXAM PARAMETERS: NUMBER OF VIEWS: One view. TECHNIQUE: Single frontal radiographic view of the chest acquired. RADIATION DOSE: NA LIMITATIONS: None. FINDINGS: LUNGS AND PLEURA: No consolidation, pneumothorax or pleural effusion. MEDIASTINUM AND HILAR STRUCTURES: No masses. Contour normal. HEART AND VASCULAR STRUCTURES: The heart remains mildly enlarged. No overt vascular congestion. BONES: Degenerative changes are noted at the bilateral acromioclavicular joints. HARDWARE: None in the chest. IMPRESSION: Mild cardiomegaly. Otherwise, no acute radiographic finding in the chest. TECHNICAL DOCUMENTATION: JOB ID: [id number] [employer]- All Rights Reserved Reading location - IP/workstation name: [email or web address]
[2018-01-07 14:12] LABS: ABSOLUTE BASOPHILS # (AUTO) 0.1 10^3/uL (0.0-0.2); ABSOLUTE EOSINOPHILS # (AUTO) 0.3 10^3/uL (0.0-0.6); ABSOLUTE LYMPHOCYTES (AUTO) 1.9 10^3/uL (0.5-4.7); ABSOLUTE MONOCYTES (AUTO) 0.5 10^3/uL (0.1-1.4); ABSOLUTE NEUT (AUTO) 3.3 10^3/uL (1.7-8.2); BASOPHILS % (AUTO) 1.2 % (0-2); EOSINOPHILS % (AUTO) 4.4 % (0-6); HEMATOCRIT 32.2 % (36.0-47.0); HEMOGLOBIN 10.9 g/dL (12.0-15.5); LYMPHOCYTES % (AUTO) 31.4 % (13-45); MEAN CORPUSCULAR HEMOGLOBIN 29.2 pg (27.0-33.4); MEAN CORPUSCULAR HGB CONC 33.9 g/dL (32.0-36.0); MEAN CORPUSCULAR VOLUME 86 fl (80-97); MONOCYTES % (AUTO) 8.9 % (3-13); PLATELET COUNT 266 10^3/uL (150-450); RED BLOOD COUNT 3.73 10^6/uL (3.72-5.28); RED CELL DISTRIBUTION WIDTH 17.2 % (11.5-14.0); SEGMENTED NEUTROPHILS % (AUTO) 54.1 % (42-78); TOTAL CELLS COUNTED % (AUTO) 100 %; WHITE BLOOD COUNT 6.1 10^3/uL (4.0-10.5)
--- NOTE | 2018-01-07 14:23 | ER Document Report ---
ED General - General Chief Complaint: Chest Pain Stated Complaint: DIZZINESS Time Seen by Provider: 01/07/18 13:20 Mode of Arrival: Ambulatory Information source: Patient Notes: 82-year-old female presents emergency department for evaluation of a sharp pain. Patient states that the pain started in her left abdomen and radiated up to the left side of her head. She states that it was sharp and stabbing. It lasted approximately 2-3 seconds and resolved. Patient has not had this pain again. This occurred 4 hours prior to arrival. Patient denies any chest pain, difficulty breathing, nausea, vomiting, diaphoresis. Patient states that she did have a change in the color of her vision during those 3 seconds. She felt like her vision went green. She states that this resolved. She denies any speech changes, numbness, tingling, weakness. Patient denies feeling lightheaded at this time. Patient states that she has had a TIA in the past. She states that this affected her speech and her left upper extremity was weak. She denies any symptoms at this time. Patient is currently asymptomatic in the emergency department. TRAVEL OUTSIDE OF THE [place] IN LAST 30 DAYS: No - HPI Onset: This morning Onset/Duration: Sudden Quality of pain: Sharp Severity: Mild Pain Level: 1 Associated symptoms: None Exacerbated by: Denies Relieved by: Denies Similar symptoms previously: No Recently seen / treated by doctor: No - Related Data Allergies/Adverse Reactions: No Known Allergies Allergy (Verified 01/07/18 13:10) Past Medical History - General Information source: Patient - Social History Smoking Status: Never Smoker Chew tobacco use (# tins/day): No Frequency of alcohol use: None Drug Abuse: None Family History: DM, Hypertension Patient has suicidal ideation: No Patient has homicidal ideation: No - Past Medical History Cardiac Medical History: Reports: Hx Congestive Heart Failure, Hx Hypercholesterolemia, Hx Hypertension Denies: Hx Atrial Fibrillation, Hx Coronary Artery Disease, Hx DVT, Hx Heart Attack, Hx Peripheral Vascular Disease, Hx Pulmonary Embolism, Hx Heart Murmur Pulmonary Medical History: Denies: Hx Asthma, Hx Bronchitis, Hx COPD, Hx Pneumonia, Hx Intubation, Hx Respiratory Failure, Hx Sleep Apnea, Hx Tuberculosis Endocrine Medical History: Reports: Hx Diabetes Mellitus Type 2 Renal/ Medical History: Denies: Hx Peritoneal Dialysis GI Medical History: Reports: Hx Gastroesophageal Reflux Disease Musculoskeltal Medical History: Reports Hx Arthritis Past Surgical History: Reports: Hx Hysterectomy, Hx Orthopedic Surgery Review of Systems - Review of Systems Constitutional: No symptoms reported EENT: Other - color change in vision Cardiovascular: Chest pain Respiratory: No symptoms reported Gastrointestinal: Abdominal pain Genitourinary: No symptoms reported Female Genitourinary: No symptoms reported Musculoskeletal: No symptoms reported Skin: No symptoms reported Neurological/Psychological: No symptoms reported -: Yes All other systems reviewed and negative Physical Exam - Vital signs Vitals: Temp Pulse Resp BP Pulse Ox 98.0 F 59 L 18 137/69 H 96 01/07/18 12:44 01/07/18 12:44 01/07/18 12:44 01/07/18 12:44 01/07/18 12:44 Interpretation: Normal - Notes Notes: PHYSICAL EXAMINATION: GENERAL: Well-appearing, well-nourished and in no acute distress. HEAD: Atraumatic, normocephalic. EYES: Pupils equal round and reactive to light, extraocular movements intact, conjunctiva are normal. ENT: Nares patent, oropharynx clear without exudates. Moist mucous membranes. NECK: Normal range of motion, supple without lymphadenopathy LUNGS: Breath sounds clear to auscultation bilaterally and equal. No wheezes rales or rhonchi. HEART: Regular rate and rhythm without murmurs ABDOMEN: Soft, nontender, nondistended abdomen. No guarding, no rebound. No masses appreciated. Female : deferred Musculoskeletal: Normal range of motion, no pitting or edema. No cyanosis. NEUROLOGICAL: Cranial nerves grossly intact. Normal speech, normal gait. Normal sensory, motor exams PSYCH: Normal mood, normal affect. SKIN: Warm, Dry, normal turgor, no rashes or lesions noted. Course - Re-evaluation Re-evalutation: 01/07/18 16:54 Labs and imaging obtained. No acute process identified. Patient continues to be asymptomatic. I will discharge the patient home. Patient instructed to follow-up with her primary care physician this week, to take [id number] medication as needed for symptom relief, and to return to emergency department for any worsening symptoms. Patient is agreeable to plan of care. - Vital Signs Vital signs: Temp Pulse Resp BP Pulse Ox 98.0 F 59 L 17 137/69 H 100 01/07/18 12:44 01/07/18 12:44 01/07/18 15:00 01/07/18 12:44 01/07/18 15:00 - Laboratory Result Diagrams: 01/07/18 14:00 01/07/18 14:00 Laboratory results interpreted by me: 01/07/18 01/07/18 14:00 14:00 Hgb 10.9 L Hct 32.2 L RDW 17.2 H Chloride 109 H Creatinine 1.31 H Est GFR ( Amer) 47 L Est GFR (Non-Af Amer) 39 L - EKG Interpretation by Me Additional EKG results interpreted by me: 01/07/18 14:23 EKG: Ventricular rate 54, AK interval 554, QRS duration 86, QTc 417, normal sinus rhythm, no ischemic changes. Discharge - Discharge Clinical Impression: Chest pain Qualifiers: Chest pain type: other chest pain Qualified Code(s): R07.89 - Other chest pain ; R07.8 - Other chest pain Condition: Good Disposition: HOME, SELF-CARE Instructions: Chest Pain of Unclear Cause ([facility]) Referrals: TANI MARSH MD [Primary Care Provider] - Follow up as needed
[2018-01-07 14:29] LABS: ALANINE AMINOTRANSFERASE 20 U/L (9-52); ALBUMIN 4.4 g/dL (3.5-5.0); ALKALINE PHOSPHATASE 62 U/L (38-126); ANION GAP 12 (5-19); ASPARTATE AMINO TRANSFERASE 24 U/L (14-36); BILIRUBIN,DIRECT 0.4 mg/dL (0.0-0.4); BILIRUBIN,TOTAL 0.6 mg/dL (0.2-1.3); BLOOD UREA NITROGEN 15 mg/dL (7-20); CALCIUM 9.5 mg/dL (8.4-10.2); CARBON DIOXIDE 24 mmol/L (22-30); CHLORIDE 109 mmol/L (98-107); CREATINE KINASE 117 U/L (30-135); GLUCOSE 106 mg/dL (75-110); POTASSIUM 4.2 mmol/L (3.6-5.0); SODIUM 144.9 mmol/L (137-145); TOTAL PROTEIN 8.1 g/dL (6.3-8.2)
[2018-01-07 14:40] LABS: CREATINE KINASE MB 0.99 ng/mL (<4.55)
[2018-01-07 14:41] LABS: TROPONIN I < 0.012 ng/mL
[2018-01-07 17:14] VITALS: BP 129/62
--- NOTE | 2018-01-07 19:07 | EKG REPORT ---
SEVERITY:- ABNORMAL ECG - SINUS RHYTHM FIRST DEGREE AV BLOCK MINIMAL ST DEPRESSION, DIFFUSE LEADS : Confirmed by: Re Gutierrez MD 07-Jan-2018 19:06:53
== END 2018-01-07 17:14 | disposition home or self-care (01) ==
LOC: ER 12:16
DX: R07.89 Other chest pain (principal); R42 Dizziness and giddiness; R10.9 Unspecified abdominal pain; I10 Essential (primary) hypertension; E11.9 Type 2 diabetes mellitus without complications
CPT/HCPCS: 36415; 70450; 71045; 80053; 82550; 82553; 84484; 85025; 93005; 93010; 99285

== ENCOUNTER 2018-03-01 20:19 | Emergency (ER) | payer MEDICARE, OTHER ==
--- NOTE | 2018-03-01 20:54 | RADIOLOGY REPORT (SQ) ---
EXAM DESCRIPTION: CHEST SINGLE VIEW COMPLETED DATE/TIME: 03/01/2018 8:40 pm REASON FOR STUDY: weakness COMPARISON: 01/07/2018 EXAM PARAMETERS: NUMBER OF VIEWS: One view. TECHNIQUE: Single frontal radiographic view of the chest acquired. RADIATION DOSE: NA LIMITATIONS: None. FINDINGS: LUNGS AND PLEURA: No opacities, masses or pneumothorax. No pleural effusion. MEDIASTINUM AND HILAR STRUCTURES: No masses. Contour normal. HEART AND VASCULAR STRUCTURES: Heart normal in size. Normal vasculature. BONES: No acute findings. HARDWARE: None in the chest. OTHER: No other significant finding. IMPRESSION: NO ACUTE RADIOGRAPHIC FINDING IN THE CHEST. TECHNICAL DOCUMENTATION: JOB ID: [id number] [employer]- All Rights Reserved Reading location - IP/workstation name: [email or web address]
--- NOTE | 2018-03-01 20:56 | RADIOLOGY REPORT (SQ) ---
EXAM DESCRIPTION: CT HEAD WITHOUT COMPLETED DATE/TIME: 03/01/2018 8:41 pm REASON FOR STUDY: weakness / STROKE COMPARISON: 01/07/2018 TECHNIQUE: Axial images acquired through the brain without intravenous contrast. Images reviewed wi th bone, brain and subdural windows. Additional sagittal and coronal reconstructions were generated. Images stored on PACS. All CT scanners at this facility use dose modulation, iterative reconstruction, and/or weight based d osing when appropriate to reduce radiation dose to as low as reasonably achievable (ALARA). [facility]: Dose Right [facility]: CareDose [facility]: Dose Right [facility]: Teradose 4D [facility]: [employer] RADIATION DOSE: mGy. LIMITATIONS: None. FINDINGS: VENTRICLES: Normal size and contour. CEREBRUM: No masses. No hemorrhage. No midline shift. No evidence for acute infarction. Few scatte red areas of low density in the white matter most likely chronic small vessel ischemic changes. CEREBELLUM: No masses. No hemorrhage. No alteration of density. No evidence for acute infarction. EXTRAAXIAL SPACES: No fluid collections. No masses. ORBITS AND GLOBE: No intra- or extraconal masses. Normal contour of globe without masses. CALVARIUM: No fracture. PARANASAL SINUSES: No fluid or mucosal thickening. SOFT TISSUES: No mass or hematoma. OTHER: No other significant finding. IMPRESSION: MILD CHRONIC MICROVASCULAR ISCHEMIA. NO ACUTE IMAGING FINDINGS IN THE BRAIN. EVIDENCE OF ACUTE STROKE: NO. COMMENT: Quality ID # [id number]: Final reports with documentation of one or more dose reduction techniques (e.g., Automated exposure control, adjustment of the mA and/or kV according to patient size, use of iterative reconstruction technique) TECHNICAL DOCUMENTATION: JOB ID: [id number] [employer]- All Rights Reserved Reading location - IP/workstation name: [email or web address]
[2018-03-01 21:14] LABS: ABSOLUTE EOSINOPHILS # (AUTO) 0.2 10^3/uL (0.0-0.6); ABSOLUTE LYMPHOCYTES (AUTO) 1.8 10^3/uL (0.5-4.7); ABSOLUTE MONOCYTES (AUTO) 0.6 10^3/uL (0.1-1.4); ABSOLUTE NEUT (AUTO) 2.6 10^3/uL (1.7-8.2); BASOPHILS % (AUTO) 0.9 % (0-2); EOSINOPHILS % (AUTO) 4.1 % (0-6); HEMATOCRIT 33.9 % (36.0-47.0); HEMOGLOBIN 11.5 g/dL (12.0-15.5); LYMPHOCYTES % (AUTO) 34.5 % (13-45); MEAN CORPUSCULAR HGB CONC 33.8 g/dL (32.0-36.0); MEAN CORPUSCULAR VOLUME 86 fl (80-97); MONOCYTES % (AUTO) 10.9 % (3-13); PLATELET COUNT 264 10^3/uL (150-450); RED BLOOD COUNT 3.95 10^6/uL (3.72-5.28); RED CELL DISTRIBUTION WIDTH 16.2 % (11.5-14.0); SEGMENTED NEUTROPHILS % (AUTO) 49.6 % (42-78); TOTAL CELLS COUNTED % (AUTO) 100 %; WHITE BLOOD COUNT 5.3 10^3/uL (4.0-10.5)
[2018-03-01 21:26] LABS: ALANINE AMINOTRANSFERASE 17 U/L (9-52); ALBUMIN 4.4 g/dL (3.5-5.0); ALKALINE PHOSPHATASE 65 U/L (38-126); ANION GAP 14 (5-19); ASPARTATE AMINO TRANSFERASE 24 U/L (14-36); BILIRUBIN,DIRECT 0.4 mg/dL (0.0-0.4); BILIRUBIN,TOTAL 0.5 mg/dL (0.2-1.3); BLOOD UREA NITROGEN 23 mg/dL (7-20); CALCIUM 9.9 mg/dL (8.4-10.2); CARBON DIOXIDE 24 mmol/L (22-30); CHLORIDE 107 mmol/L (98-107); GLUCOSE 102 mg/dL (75-110); POTASSIUM 3.9 mmol/L (3.6-5.0); SODIUM 144.7 mmol/L (137-145); TOTAL PROTEIN 8.7 g/dL (6.3-8.2)
[2018-03-01] MEDS ORDERED: NORMAL SALINE 1000 ML 500 ML IV ONE (22:31)
--- NOTE | 2018-03-01 22:33 | ER Document Report ---
ED General - General Chief Complaint: Weakness Stated Complaint: WEAKNESS Time Seen by Provider: 03/01/18 20:52 Notes: Patient is an 82-year-old female with a past medical history of hypertension, prior TIA, dementia, who presents with her family due to concerns of left hand paresthesias. Family and patient possibly substantially on the timing of when the paresthesias occurred ranging from several days ago to just prior to arrival. Ultimately however patient does note that the symptoms have spontaneously resolved and denies any neurologic symptoms at the time my evaluation. She is clear to state that it was isolated entirely to her left hand additional symptoms although her daughter states that the patient seemed more confused. In triage and was initially concerned of possible slurred speech although on history taking this is clarified as meaning that the patient seemed confused. Nothing seemed to improve or worsen the patient's symptoms when present. The patient denies any nausea, vomiting no chest pain, shortness of breath or dysuria. She saw her primary care doctor for routine visit this morning but did not bring of these concerns to him. She denies any symptoms or complaints at the time of my assessment. TRAVEL OUTSIDE OF THE [place] IN LAST 30 DAYS: No - Related Data Allergies/Adverse Reactions: No Known Allergies Allergy (Verified 03/01/18 21:10) Past Medical History - General Information source: Patient, Relative - Social History Smoking Status: Never Smoker Frequency of alcohol use: None Drug Abuse: None Lives with: Family Family History: DM, Hypertension Patient has suicidal ideation: No Patient has homicidal ideation: No - Past Medical History Cardiac Medical History: Reports: Hx Congestive Heart Failure, Hx Hypercholesterolemia, Hx Hypertension Denies: Hx Atrial Fibrillation, Hx Coronary Artery Disease, Hx DVT, Hx Heart Attack, Hx Peripheral Vascular Disease, Hx Pulmonary Embolism, Hx Heart Murmur Pulmonary Medical History: Denies: Hx Asthma, Hx Bronchitis, Hx COPD, Hx Pneumonia, Hx Intubation, Hx Respiratory Failure, Hx Sleep Apnea, Hx Tuberculosis Endocrine Medical History: Reports: Hx Diabetes Mellitus Type 2 Renal/ Medical History: Denies: Hx Peritoneal Dialysis GI Medical History: Reports: Hx Gastroesophageal Reflux Disease Musculoskeletal Medical History: Reports Hx Arthritis Past Surgical History: Reports: Hx Hysterectomy, Hx Orthopedic Surgery Review of Systems - Review of Systems Notes: Constitutional: Negative for fever. HENT: Negative for sore throat. Eyes: Negative for visual changes. Cardiovascular: Negative for chest pain. Respiratory: Negative for shortness of breath. Gastrointestinal: Negative for abdominal pain, vomiting or diarrhea. Genitourinary: Negative for dysuria. Musculoskeletal: Negative for back pain. Skin: Negative for rash. Neurological: Positive for left hand paresthesias now resolved 10 point ROS negative except as marked above and in HPI. Physical Exam - Vital signs Vitals: Pulse Resp BP Pulse Ox 58 L 18 172/58 H 97 03/01/18 20:45 03/01/18 20:45 03/01/18 20:45 03/01/18 20:45 Interpretation: Bradycardic Notes: PHYSICAL EXAMINATION: GENERAL: Well-appearing, well-nourished and in no acute distress. HEAD: Atraumatic, normocephalic. EYES: Pupils equal round and reactive to light, extraocular movements intact, sclera anicteric, conjunctiva are normal. ENT: nares patent, oropharynx clear without exudates. Moist mucous membranes. NECK: Normal range of motion, supple without lymphadenopathy LUNGS: Breath sounds clear to auscultation bilaterally and equal. No wheezes rales or rhonchi. HEART: Regular rate and rhythm without murmurs ABDOMEN: Soft, nontender, normoactive bowel sounds. No guarding, no rebound. No masses appreciated. EXTREMITIES: Normal range of motion, no pitting or edema. No cyanosis. NEUROLOGICAL: Face symmetric. Tongue protrudes midline. Extraocular motions intact. Pupils are 2 mm and equally reactive. Normal speech, normal gait. 5 out of 5 strength in both the distal and proximal upper and lower extremities bilaterally. Sensation is grossly intact throughout. Finger to nose testing normal. Pronator drift normal. PSYCH: Normal mood, normal affect. SKIN: Warm, Dry, normal turgor, no rashes or lesions noted. Course - Re-evaluation Re-evalutation: 03/01/18 22:32 Patient initially presents with concerns of left hand paresthesias now resolved. NIH stroke scale 0 at time of my assessment, no focal neurologic deficits on exam. Laughing and joking with me during examination. Patient appears to complain more about just feeling globally tired as opposed any specific weakness. She does have a history of a prior TIA but no prior strokes and is already on maximal medical therapy for her TIA. By definition she does not currently have stroke given the absence of any neurologic deficits. A previous TIA based on her complaints of left upper extremity numbness cannot entirely be excluded but seems improbable based on her complaint of being isolated to her left hand. Patient's laboratories do show some mild acute kidney injury likely secondary to dehydration as patient admits to minimal p.o. intake today. Will give a small amount of IV fluids. Also awaiting urinalysis. CT the head, chest x-ray, cardiac markers all unremarkable. Patient and family are comfortable with the plan of discharge home after completion of urinalysis study. 03/02/18 00:42 Urinalysis unremarkable. Patient states she feels better after fluids, would like to be discharged home. At this time will discharge with return precautions and follow-up recommendations. Verbal discharge instructions given a the bedside and opportunity for questions given. Medication warnings reviewed. Patient is in agreement with this plan and has verbalized understanding of return precautions and the need for primary care follow-up in the next 24-72 hours. 03/02/18 04:02 - Vital Signs Vital signs: Temp Pulse Resp BP Pulse Ox 99.0 F 58 L 20 159/57 H 98 03/02/18 00:50 03/02/18 00:50 03/02/18 00:50 03/02/18 00:50 03/02/18 00:50 - Laboratory Result Diagrams: 03/01/18 20:45 03/01/18 20:45 Laboratory results interpreted by me: 03/01/18 03/01/18 03/01/18 20:45 20:45 20:50 Hgb 11.5 L Hct 33.9 L RDW 16.2 H BUN 23 H Creatinine 1.80 H Est GFR ( Amer) 32 L Est GFR (Non-Af Amer) 27 L POC Glucose 115 H Total Protein 8.7 H Urine Protein 03/01/18 23:35 Hgb Hct RDW BUN Creatinine Est GFR ( Amer) Est GFR (Non-Af Amer) POC Glucose Total Protein Urine Protein 100 H - Diagnostic Test Radiology reviewed: Image reviewed, Reports reviewed Radiology results interpreted by me: 03/02/18 00:43 CT head: No intracranial bleed or mass Chest x-ray: No acute infiltrate - EKG Interpretation by Me Additional EKG results interpreted by me: 03/02/18 04:02 Sinus rhythm. Rate 59. No ST elevations or depressions. QTC 448. Discharge - Discharge Clinical Impression: Left hand paresthesia, Dehydration, Acute kidney injury Condition: Good Disposition: HOME, SELF-CARE Additional Instructions: Please return to the emergency room immediately if you experience any concerning symptoms including high fevers, severe headache, chest pain, difficulty breathing, abdominal pain, slurred speech, numbness or weakness in your arms or legs, or any other symptom that concerns you. Please have your kidney function rechecked by your primary doctor within the next 1 week to ensure that has normalized. The remainder of your labs, chest x- ray, CT of her head are otherwise normal. Referrals: TANI MARSH MD [Primary Care Provider] - Follow up as needed
[2018-03-01 23:54] LABS: APPEARANCE,URINE SLIGHTLY-CLOUDY; BILIRUBIN,URINE NEGATIVE (NEGATIVE); COLOR,URINE YELLOW; GLUCOSE, URINE NEGATIVE (NEGATIVE); KETONES,URINE NEGATIVE (NEGATIVE); LEUKOCYTE ESTERASE,URINE NEGATIVE (NEGATIVE); NITRITE,URINE NEGATIVE (NEGATIVE); PROTEIN,URINE 100 mg/dL (NEGATIVE); URINE SPECIFIC GRAVITY 1.018; UROBILINOGEN,URINE NEGATIVE mg/dL (<2.0)
[2018-03-02 00:57] VITALS: BP 159/57
--- NOTE | 2018-03-02 08:58 | EKG REPORT ---
SEVERITY:- ABNORMAL ECG - SINUS RHYTHM FIRST DEGREE AV BLOCK PROBABLE LEFT ATRIAL ABNORMALITY : Confirmed by: Alejandro Zheng 02-Mar-2018 08:57:42
== END 2018-03-02 00:55 | disposition home or self-care (01) ==
LOC: ER 20:19
DX: R20.2 Paresthesia of skin (principal); E86.0 Dehydration; N17.9 Acute kidney failure, unspecified; E11.9 Type 2 diabetes mellitus without complications; I10 Essential (primary) hypertension; Z86.73 Personal history of transient ischemic attack (TIA), and cerebral infarction without residual deficits
CPT/HCPCS: 93005; 99285; 96360; 36415; 82962; 85025; 80053; 81001; 84484; 71045; 70450; 93010; J7030

== ENCOUNTER → 2018-05-30 | Outpatient (CLI) | payer MEDICARE, OTHER ==
--- NOTE | 2018-05-30 11:29 | RADIOLOGY REPORT (SQ) ---
EXAM DESCRIPTION: U/S RETROPERITON (RENAL/AORTA) COMPLETED DATE/TIME: 05/30/2018 11:04 am REASON FOR STUDY: N18.3 CHRONIC KIDNEY DISEASE, STAGE 3 (MODERATE) I65.23 OCCLUSION AND STENOSIS OF BILATERAL CAROTID ARTERIES N18.3 CHRONIC KIDNEY DISEASE, STAGE 3 (MODERATE) COMPARISON: Abdominal ultrasound 10/19/2017 CT abdomen pelvis 10/18/2017, 10/20/2017 TECHNIQUE: Dynamic and static grayscale images acquired of the kidneys and bladder and recorded on P ACS. Additional selected color Doppler and spectral images recorded. LIMITATIONS: None. FINDINGS: RIGHT KIDNEY: Normal size, 9 cm in length. Minimal increased cortical echogenicity. No so lid or suspicious masses. No hydronephrosis. No calcifications. LEFT KIDNEY: Normal size, 8.4 cm in length. Minimal increased cortical echogenicity. No solid or conrad spicious masses. No hydronephrosis. No calcifications. BLADDER: No masses. OTHER FINDINGS: No other significant finding. IMPRESSION: No hydronephrosis. Age-appropriate mild increased renal cortical echogenicity. TECHNICAL DOCUMENTATION: JOB ID: [id number]- All Rights Reserved Reading location - IP/workstation name: [email or web address]
--- NOTE | 2018-05-30 11:35 | RADIOLOGY REPORT (SQ) ---
EXAM DESCRIPTION: CAROTID DOPPLER COMPLETED DATE/TIME: 05/30/2018 11:13 am REASON FOR STUDY: CAROTID STENOSIS I65.23 OCCLUSION AND STENOSIS OF BILATERAL CAROTID ARTERIES N18. 3 CHRONIC KIDNEY DISEASE, STAGE 3 (MODERATE) COMPARISON: Carotid Doppler 10/18/2017 MRI brain 10/18/2017 TECHNIQUE: Grayscale ultrasound, Doppler velocity and spectra, and color Doppler images acquired of the extra-cranial carotid and vertebral arteries. Images stored on PACS. LIMITATIONS: None. FINDINGS: RIGHT CAROTID CCA Velocities: Within normal limits. Right common carotid artery peak systolic velocity 0.64 m/sec ICA Velocities Peak systolic 0.52 m/s. End diastolic 0.11 m/s. Proximal ICA/CCA peak systolic ratio 1.95. There is calcific plaque at the right carotid bifurcation shadowing the origin of the right ICA. Imm ediately distal to the shadowing plaque, peak systolic velocities suggest against flow significant st enosis of the proximal right ICA. Velocities of the right external carotid artery are normal. LEFT CAROTID CCA Velocities: Within normal limits. Left common carotid artery peak systolic velocity 0.74 m/sec ICA Velocities Peak systolic 0.94 m/s. End diastolic 0.31 m/s. Proximal ICA/CCA peak systolic ratio 1.6. There is calcific shadowing plaque at the left carotid bifurcation, shadowing the origin of the left ICA. Immediately distal to the shadowing plaque, velocities suggest against any flow significant bright nosis of the left proximal ICA. There are elevated velocities in the left external carotid artery conrad ggesting 50 to 69% stenosis proximal left ECA. VERTEBRAL ARTERIES: Antegrade flow. Normal waveforms. SUBCLAVIAN ARTERIES: Not evaluated OTHER: No other significant finding. IMPRESSION: Calcific carotid bifurcations without flow significant stenosis of the right or left pro ximal ICA by velocity criteria Antegrade pulsatile bilobed lateral vertebral artery flow 50 to 69% proximal left external carotid artery at the bifurcation COMMENT: Quality ID #[id number]: Velocity criteria are extrapolated from the diameter data as defined by t he Society of Radiologists in Ultrasound Consensus Conference. Radiology 2003: 229; 340-346. TECHNICAL DOCUMENTATION: JOB ID: [id number] [employer]- All Rights Reserved Reading location - IP/workstation name: [email or web address] [id number]
== END ==
LOC: SP 09:59
PROVIDERS: ATTEND Internal Medicine Nephrology
DX: E11.22 Type 2 diabetes mellitus with diabetic chronic kidney disease (principal); I13.0 Hypertensive heart and chronic kidney disease with heart failure and stage 1 through stage 4 chronic kidney disease, or unspecified chronic kidney disease; N18.3 Chronic kidney disease, stage 3 (moderate); I50.9 Heart failure, unspecified; I65.23 Occlusion and stenosis of bilateral carotid arteries
CPT/HCPCS: 76770; 93880

== ENCOUNTER → 2019-07-31 | Outpatient (CLI) | payer MEDICARE, OTHER ==
--- NOTE | 2019-07-31 10:39 | RADIOLOGY REPORT (SQ) ---
EXAM DESCRIPTION: CT HEAD WITHOUT COMPLETED DATE/TIME: 07/31/2019 10:25 am REASON FOR STUDY: R42 DIZZINESS AND GIDDINESS R42 DIZZINESS AND GIDDINESS COMPARISON: 03/01/2018 TECHNIQUE: Axial images acquired through the brain without intravenous contrast. Images reviewed wi th bone, brain and subdural windows. Additional sagittal and coronal reconstructions were generated. Images stored on PACS. All CT scanners at this facility use dose modulation, iterative reconstruction, and/or weight based d osing when appropriate to reduce radiation dose to as low as reasonably achievable (ALARA). [facility]: Dose Right [facility]: CareDose [facility]: Dose Right [facility]: Teradose 4D [facility]: [employer] RADIATION DOSE: CT Rad equipment meets quality standard of care and radiation dose reduction techniq ues were employed. CTDIvol: 48.7 mGy. DLP: 980 mGy-cm. mGy. LIMITATIONS: None. FINDINGS: VENTRICLES: Prominent. CEREBRUM: No masses. No hemorrhage. No midline shift. Areas of low density in the white matter mos t likely due to chronic micro-vascular ischemic change. No evidence for acute infarction. CEREBELLUM: No masses. No hemorrhage. No alteration of density. No evidence for acute infarction. EXTRAAXIAL SPACES: Mild age-related involutional change. No fluid collections. No masses. ORBITS AND GLOBE: No intra- or extraconal masses. Normal contour of globe without masses. CALVARIUM: No fracture. PARANASAL SINUSES: No fluid or mucosal thickening. SOFT TISSUES: No mass or hematoma. OTHER: No other significant finding. IMPRESSION: MILD CHRONIC CHANGES OF ATROPHY AND MICROVASCULAR ISCHEMIA. NO ACUTE PROCESS. EVIDENCE OF ACUTE STROKE: NO. TECHNICAL DOCUMENTATION: JOB ID: [id number] Quality ID # [id number]: Final reports with documentation of one or more dose reduction techniques (e.g., Au tomated exposure control, adjustment of the mA and/or kV according to patient size, use of iterative reconstruction technique) 2010 [employer]- All Rights Reserved Reading location - IP/workstation name: [email or web address]
== END ==
LOC: RAD 09:51
PROVIDERS: ATTEND Family Medicine
DX: R42 Dizziness and giddiness (principal)
CPT/HCPCS: 70450

== ENCOUNTER 2019-08-30 15:09 | Inpatient (IN) | payer MEDICARE, OTHER ==
--- NOTE | 2019-08-30 15:47 | ER Document Report ---
ED General - General Chief Complaint: High Blood Pressure Stated Complaint: POSSIBLE STROKE Time Seen by Provider: 08/30/19 15:17 Mode of Arrival: Medic Information source: Patient Notes: 83-year-old woman presents to the emergency department with a history of sudden onset of speech difficulty this afternoon at approximately 2:58 PM, the symptoms lasted for about 5 minutes EMS was called to the home and by the time they arrived the symptoms had resolved. Patient blood pressure was noted to be markedly elevated with a systolic blood pressure greater than 220. In the ED the patient is asymptomatic and appears to be doing well with no difficulty. At 1540, I was asked to come and talk to the daughter and at that time the patient noted that her left arm was feeling weak and unable to do fine motor movement in her fingers with a numbness noted in her arm and hand. Denies any other ne urologic symptoms at that time. TRAVEL OUTSIDE OF THE [place] IN LAST 30 DAYS: No - Related Data Allergies/Adverse Reactions: No Known Allergies Allergy (Verified 03/01/18 21:10) Past Medical History - Social History Smoking Status: Never Smoker Family History: DM, Hypertension Patient has suicidal ideation: No Patient has homicidal ideation: No - Past Medical History Cardiac Medical History: Reports: Hx Congestive Heart Failure, Hx Hypercholester olemia, Hx Hypertension Denies: Hx Atrial Fibrillation, Hx Coronary Artery Disease, Hx DVT, Hx Heart Attack, Hx Peripheral Vascular Disease, Hx Pulmonary Embolism, Hx Heart Murmur Pulmonary Medical History: Denies: Hx Asthma, Hx Bronchitis, Hx COPD, Hx Pneumonia, Hx Intubation, Hx Respiratory Failure, Hx Sleep Apnea, Hx Tuberculosis Endocrine Medical History: Reports: Hx Diabetes Mellitus Type 2 Renal/ Medical History: Denies: Hx Peritoneal Dialysis GI Medical History: Reports: Hx Gastroesophageal Reflux Disease Musculoskeletal Medical History: Reports Hx Arthritis Past Surgical History: Reports: Hx Hysterectomy, Hx Orthopedic Surgery - right knee replacement Review of Systems - Review of Systems Notes: Constitutional: Negative for fever. HENT: Negative for sore throat. Eyes: Negative for visual changes. Cardiovascular: Negative for chest pain. Respiratory: Negative for shortness of breath. Gastrointestinal: Negative for abdominal pain, vomiting or diarrhea. Genitourinary: Negative for dysuria. Musculoskeletal: Negative for back pain. Skin: Negative for rash. Neurological: + Left upper extremity weakness and numbness, + speech difficulties earlier 10 point ROS negative except as marked above and in HPI. Physical Exam - Vital signs Vitals: Temp Pulse Resp BP Pulse Ox 98.2 F 91 12 170/73 H 100 08/30/19 15:10 08/30/19 15:10 08/30/19 15:10 08/30/19 15:10 08/30/19 15:10 - Notes Notes: PHYSICAL EXAMINATION: Physical Exam: General: Well-nourished well-developed 83-year-old woman in no acute distress HEENT: NC/AT, pupils equal round and reactive to light, MM moist,nares clear, oropharynx clear, airway patent Neck: supple, no adenopathy, no masses. Good range of motion Lungs: clear, no wheezing, no rales no rhonchi CVS: Regular rate and rhythm no murmur gallop or rub Abdomen: Soft, active, nontender, no masses, no hepatosplenomegaly Ext: No edema, clubbing or cyanosis. Neuro: Alert and responsive, speech normal, left upper extremity weakness, left arm numbness. Decreased range of motion in the left upper extremity, right upper extremity normal, lower extremities normal, no weakness and no numbness. Cranial nerves intact, no focal findings Skin: Intact no open lesions, no rash PSYCH: Normal mood, normal affect. Course - Re-evaluation Re-evalutation: 08/30/19 17:12 83-year-old woman presenting with transient neurologic symptoms speech difficulty, then right arm weakness, the arm was first flaccid, however within about 45 minutes the arm strength return to normal. No other neurologic symptoms are noted, CT scan negative for bleeding or other findings. I discussed the patient with the primary care doctor Dr. Pederson and he is going to admit the patient to [facility], he is requesting a MRI at this time. 08/30/19 17:17 Patient is not a candidate for TPA as her neurologic symptoms have resolved. Her NIH score at this time is 0. Diagnosis is transient ischemic attack is given. MRI to identify whether there may be small CVA. 08/30/19 17:49 Patient's blood pressure has improved, 154/71. 08/30/19 20:05 MRI of the head without contrast and MRA of the head without contrast was performed. The patient has a image which is positive for acute and subacute infarction in multiple foci in the right frontal and parietal lobes. There is occlusion of the right internal carotid artery from the [place] infer iorly to the margin of the images to the level of the proximal ICA. Evidence of acute stroke and multiple right sided territories. contacted me with the results of the MRI MRA and has asked that the patient be transferred to a center with neurology coverage. A phone call was made to the [facility]. - Vital Signs Vital signs: Temp Pulse Resp BP Pulse Ox 98.2 F 85 20 173/80 H 99 08/30/19 15:10 08/30/19 18:28 08/30/19 18:28 08/30/19 18:28 08/30/19 18:28 - Laboratory Result Diagrams: 08/30/19 15:30 08/30/19 15:30 Laboratory results interpreted by me: 08/30/19 08/30/19 08/30/19 15:30 15:30 16:45 RDW 17.8 H BUN 27 H Creatinine 1.47 H Est GFR ( Amer) 41 L Est GFR (MDRD) Non-Af 34 L Total Protein 8.3 H Urine Protein 100 H Urine Blood SMALL H I have reviewed laboratory data and used this information for the treatment decisions regarding the patient. - Diagnostic Test Radiology reviewed: Image reviewed, Reports reviewed - CT head: No acute intracranial findings, no hemorrhage. Chest x-ray: Cardiomegaly, no pulmonary edema or infiltrate - EKG Interpretation by Me EKG shows normal: Sinus rhythm - Rate 92, nonspecific T wave abnormality with some minimum ST depression diffuse leads. Critical Care Note - Critical Care Note Total time excluding time spent on procedures (mins): 50 - Critical care macro Discharge - Discharge Clinical Impression: Acute ischemic stroke TIA (transient ischemic attack) Qualifiers: Transient cerebral ischemia type: unspecified Qualified Code(s): G45.9 - Transient cerebral ischemic attack, unspecified Condition: Good Disposition: ADMITTED INPATIENT Admitting Provider: Bg [facility] Admitted: [facility]
[2019-08-30 15:52] LABS: ABSOLUTE EOSINOPHILS # (AUTO) 0.2 10^3/uL (0.0-0.6); ABSOLUTE LYMPHOCYTES (AUTO) 1.7 10^3/uL (0.5-4.7); ABSOLUTE MONOCYTES (AUTO) 0.5 10^3/uL (0.1-1.4); ABSOLUTE NEUT (AUTO) 2.4 10^3/uL (1.7-8.2); BASOPHILS % (AUTO) 0.9 % (0-2); EOSINOPHILS % (AUTO) 3.6 % (0-6); HEMATOCRIT 38.4 % (36.0-47.0); LYMPHOCYTES % (AUTO) 35.6 % (13-45); MEAN CORPUSCULAR HEMOGLOBIN 29.5 pg (27.0-33.4); MEAN CORPUSCULAR HGB CONC 33.9 g/dL (32.0-36.0); MEAN CORPUSCULAR VOLUME 87 fl (80-97); MONOCYTES % (AUTO) 9.7 % (3-13); PLATELET COUNT 303 10^3/uL (150-450); RED BLOOD COUNT 4.42 10^6/uL (3.72-5.28); RED CELL DISTRIBUTION WIDTH 17.8 % (11.5-14.0); SEGMENTED NEUTROPHILS % (AUTO) 50.2 % (42-78); TOTAL CELLS COUNTED % (AUTO) 100 %; WHITE BLOOD COUNT 4.7 10^3/uL (4.0-10.5)
[2019-08-30 15:58] LABS: INTERNATIONAL RATION (INR) 1.01; PARTIAL THROMBOPLASTIN TIME 25.6 SEC (23.5-35.8); PROTHROMBIN TIME 13.3 SEC (11.4-15.4)
[2019-08-30 16:09] LABS: ALBUMIN 4.4 g/dL (3.5-5.0); ALKALINE PHOSPHATASE 66 U/L (38-126); ANION GAP 11 (5-19); ASPARTATE AMINO TRANSFERASE 25 U/L (14-36); BILIRUBIN,DIRECT 0.3 mg/dL (0.0-0.4); BILIRUBIN,TOTAL 0.7 mg/dL (0.2-1.3); BLOOD UREA NITROGEN 27 mg/dL (7-20); CARBON DIOXIDE 23 mmol/L (22-30); CHLORIDE 107 mmol/L (98-107); GLUCOSE 86 mg/dL (75-110); POTASSIUM 4.5 mmol/L (3.6-5.0); TOTAL PROTEIN 8.3 g/dL (6.3-8.2)
--- NOTE | 2019-08-30 16:24 | RADIOLOGY REPORT (SQ) ---
EXAM DESCRIPTION: CT HEAD WITHOUT COMPLETED DATE/TIME: 08/30/2019 4:09 pm REASON FOR STUDY: Strokelike symptoms COMPARISON: 07/31/2019 TECHNIQUE: Axial images acquired through the brain without intravenous contrast. Images reviewed wi th bone, brain and subdural windows. Additional sagittal and coronal reconstructions were generated. Images stored on PACS. All CT scanners at this facility use dose modulation, iterative reconstruction, and/or weight based d osing when appropriate to reduce radiation dose to as low as reasonably achievable (ALARA). [facility]: Dose Right [facility]: CareDose [facility]: Dose Right [facility]: Teradose 4D [facility]: Smart LSN Mobile RADIATION DOSE: CT Rad equipment meets quality standard of care and radiation dose reduction techniq ues were employed. CTDIvol: 53.2 mGy. DLP: 937 mGy-cm. mGy. LIMITATIONS: None. FINDINGS: VENTRICLES: Normal size and contour. CEREBRUM: No masses. No hemorrhage. No midline shift. No evidence for acute infarction. Areas of l ow density in the white matter most likely chronic small vessel ischemic changes. CEREBELLUM: No masses. No hemorrhage. No alteration of density. No evidence for acute infarction. EXTRAAXIAL SPACES: No fluid collections. No masses. ORBITS AND GLOBE: No intra- or extraconal masses. Normal contour of globe without masses. CALVARIUM: No fracture. PARANASAL SINUSES: No fluid or mucosal thickening. SOFT TISSUES: No mass or hematoma. OTHER: No other significant finding. IMPRESSION: Chronic microvascular ischemia with no acute intracranial imaging findings. EVIDENCE OF ACUTE STROKE: NO. COMMENT: Quality ID # [id number]: Final reports with documentation of one or more dose reduction techniques (e.g., Automated exposure control, adjustment of the mA and/or kV according to patient size, use of iterative reconstruction technique) TECHNICAL DOCUMENTATION: JOB ID: [id number] 2010 [email or web address]- All Rights Reserved Reading location - IP/workstation name: [email or web address]
--- NOTE | 2019-08-30 16:26 | RADIOLOGY REPORT (SQ) ---
EXAM DESCRIPTION: CHEST SINGLE VIEW COMPLETED DATE/TIME: 08/30/2019 4:14 pm REASON FOR STUDY: Strokelike symptoms COMPARISON: 01/07/2018 EXAM PARAMETERS: NUMBER OF VIEWS: One view. TECHNIQUE: Single frontal radiographic view of the chest acquired. RADIATION DOSE: NA LIMITATIONS: None. FINDINGS: LUNGS AND PLEURA: No opacities, masses or pneumothorax. No pleural effusion. MEDIASTINUM AND HILAR STRUCTURES: No masses. Contour normal. HEART AND VASCULAR STRUCTURES: Cardiomegaly. No pulmonary edema. BONES: No acute findings. HARDWARE: None in the chest. OTHER: No other significant finding. IMPRESSION: Cardiomegaly without pulmonary edema. TECHNICAL DOCUMENTATION: JOB ID: [id number] 2010 [employer]- All Rights Reserved Reading location - IP/workstation name: [email or web address]
[2019-08-30] MEDS ORDERED: ASPIRIN 325 MG TABLET PO ONE (17:06)
[2019-08-30] MEDS ORDERED: ACETAMINOPHEN 325 MG TABLET PO PRN (17:19)
--- NOTE | 2019-08-30 17:25 | Progress Note ---
Provider Note Provider Note: pt seen and exam in er and d/w pt and daughter pt most likly tia doing well exam all stable order mri admit stroke prtocol per daughter pt is non complince on medication
[2019-08-30 18:02] VITALS: BP 173/80
[2019-08-30 18:10] LABS: APPEARANCE,URINE SLIGHTLY-CLOUDY; BILIRUBIN,URINE NEGATIVE (NEGATIVE); COLOR,URINE YELLOW; GLUCOSE, URINE NEGATIVE (NEGATIVE); KETONES,URINE NEGATIVE (NEGATIVE); LEUKOCYTE ESTERASE,URINE NEGATIVE (NEGATIVE); NITRITE,URINE NEGATIVE (NEGATIVE); PROTEIN,URINE 100 mg/dL (NEGATIVE); URINE SPECIFIC GRAVITY 1.013; UROBILINOGEN,URINE NEGATIVE mg/dL (<2.0)
--- NOTE | 2019-08-30 18:38 | EKG REPORT ---
SEVERITY:- ABNORMAL ECG - SINUS RHYTHM CONSIDER ANTEROSEPTAL INFARCT MINIMAL ST DEPRESSION, DIFFUSE LEADS : Confirmed by: Alejandro Zheng 30-Aug-2019 18:37:21
[2019-08-30 19:07] LABS: CREATINE KINASE MB 2.38 ng/mL (<4.55)
[2019-08-30 19:13] LABS: TROPONIN I < 0.012 ng/mL
--- NOTE | 2019-08-30 19:38 | RADIOLOGY REPORT (SQ) ---
EXAM DESCRIPTION: MRI HEAD WITHOUT; MRA HEAD WITHOUT COMPLETED DATE/TIME: 08/30/2019 7:18 pm REASON FOR STUDY: Focal neurologic findings; TIA COMPARISON: 10/18/2017 TECHNIQUE: Multiplanar imaging includes non-contrasted T1, T2, FLAIR, and diffusion with ADC map seq uences. Axial 3-D [id number] acquisition imaging performed through the brain .Images stored on P [employer]. LIMITATIONS: Susceptibility artifact from left-sided dental hardware. FINDINGS: ANATOMY: Pituitary fossa normal. CSF SPACES: Atrophy induced prominence of ventricles and CSF spaces. CEREBRUM: High signal intensity lesions scattered throughout the white matter on FLAIR imaging with d istribution suggesting micro-vascular ischemic changes. No evidence of hemorrhage, mass, or extraaxi al fluid collection. POSTERIOR FOSSA: No signal alteration. No hemorrhage. No edema, masses or mass effect. Internal purvi tory canals, cerebello-pontine angles, mastoids normal. DIFFUSION IMAGING: Positive for acute or sub-acute infarction in multiple foci in the right frontal a nd parietal lobes. . ORBITS: No masses. Globes normal. PARANASAL SINUSES: No fluid levels. Mucosal thickening in the sphenoid -posterior ethmoid sinuses. . MRA: There is occlusion of the right internal carotid artery from the [place] - inferiorly t o the margin of the images to the level of the proximal ICA. Remainder of the [place] is pa tent. IMPRESSION: Positive for acute or sub-acute infarction in multiple foci in the right frontal and par ietal lobes. There is occlusion of the right internal carotid artery from the [place] - infe riorly to the margin of the images to the level of the proximal ICA. EVIDENCE OF ACUTE STROKE: YES. Multiple right-sided territories COMMENT: The findings were sent to the Radiology Results Communication Center at 19:30 on 08/30/2019 to be communicated to a licensed caregiver. TECHNICAL DOCUMENTATION: JOB ID: [id number] [id number] 2010 [email or web address]- All Rights Reserved Reading location - IP/workstation name: [email or web address]
--- NOTE | 2019-08-30 19:38 | RADIOLOGY REPORT (SQ) ---
EXAM DESCRIPTION: MRI HEAD WITHOUT; MRA HEAD WITHOUT COMPLETED DATE/TIME: 08/30/2019 7:18 pm REASON FOR STUDY: Focal neurologic findings; TIA COMPARISON: 10/18/2017 TECHNIQUE: Multiplanar imaging includes non-contrasted T1, T2, FLAIR, and diffusion with ADC map seq uences. Axial 3-D [id number] acquisition imaging performed through the brain .Images stored on P [employer]. LIMITATIONS: Susceptibility artifact from left-sided dental hardware. FINDINGS: ANATOMY: Pituitary fossa normal. CSF SPACES: Atrophy induced prominence of ventricles and CSF spaces. CEREBRUM: High signal intensity lesions scattered throughout the white matter on FLAIR imaging with d istribution suggesting micro-vascular ischemic changes. No evidence of hemorrhage, mass, or extraaxi al fluid collection. POSTERIOR FOSSA: No signal alteration. No hemorrhage. No edema, masses or mass effect. Internal purvi tory canals, cerebello-pontine angles, mastoids normal. DIFFUSION IMAGING: Positive for acute or sub-acute infarction in multiple foci in the right frontal a nd parietal lobes. . ORBITS: No masses. Globes normal. PARANASAL SINUSES: No fluid levels. Mucosal thickening in the sphenoid -posterior ethmoid sinuses. . MRA: There is occlusion of the right internal carotid artery from the [place] - inferiorly t o the margin of the images to the level of the proximal ICA. Remainder of the [place] is pa tent. IMPRESSION: Positive for acute or sub-acute infarction in multiple foci in the right frontal and par ietal lobes. There is occlusion of the right internal carotid artery from the [place] - infe riorly to the margin of the images to the level of the proximal ICA. EVIDENCE OF ACUTE STROKE: YES. Multiple right-sided territories COMMENT: The findings were sent to the Radiology Results Communication Center at 19:30 on 08/30/2019 to be communicated to a licensed caregiver. TECHNICAL DOCUMENTATION: JOB ID: [id number] 2010 [email or web address]- All Rights Reserved Reading location - IP/workstation name: [email or web address]
--- NOTE | 2019-08-30 21:02 | PDOC TRANSFER SUMMARY ---
General Admission Date/PCP: 08/30/19 17:28 TANI MARSH MD Admission Date: 08/30/19 Transfer Date: 08/30/19 [facility] Facility: [facility] Resuscitation Status: Full Code - Transfer Diagnosis (1) Right carotid artery occlusion Is this a current diagnosis for this admission?: Yes (2) Chronic kidney disease Is this a current diagnosis for this admission?: Yes (3) Acute ischemic stroke Is this a current diagnosis for this admission?: Yes (4) Congestive heart failure Is this a current diagnosis for this admission?: Yes (5) Hyperlipidemia Is this a current diagnosis for this admission?: Yes (6) Hypertension Is this a current diagnosis for this admission?: Yes (7) Type 2 diabetes mellitus Is this a current diagnosis for this admission?: Yes - Transfer Medications Home Medications: Bisacodyl [Dulcolax 5 mg Tablet] 5 mg PO DAILYP PRN 10/18/17 Donepezil HCl [Aricept] 5 mg PO QHS 10/18/17 Levocetirizine Dihydrochloride [Xyzal] 5 mg PO QPM 10/18/17 Metoprolol Tartrate [Lopressor 50 mg Tablet] 50 mg PO Q12 10/18/17 Nifedipine [Nifedipine ER] 30 mg PO Q12 10/18/17 Omeprazole 40 mg PO DAILY 10/18/17 Sitagliptin Phosphate [Januvia] 100 mg PO DAILY 10/18/17 Zolpidem Tartrate [Ambien 5 mg Tablet] 5 mg PO QHS 10/18/17 Transfer Medications: Current Medications Acetaminophen (Tylenol 325 Mg Tablet) 650 mg PO Q4HP PRN PRN Reason: Temp greater than 101F Stop: 09/29/19 17:18 Aspirin (Ecotrin 81 Mg Ec Tablet) 81 mg PO DAILY [facility] Stop: 09/30/19 09:59 Atorvastatin Calcium (Lipitor 80 Mg Tablet) 80 mg PO QHS [facility] Stop: 09/29/19 21:59 Clopidogrel Bisulfate (Plavix 75 Mg Tablet) 75 mg PO DAILY [facility] Stop: 09/30/19 09:59 Enoxaparin Sodium (Lovenox Inj 40 Mg/0.4 Ml Disp.Syrin) 40 mg SUBCUT DAILY [facility] Stop: 09/30/19 09:59 Famotidine (Pepcid 20 Mg Tablet) 20 mg PO Q12 [facility] Stop: 09/29/19 21:59 Sodium Chloride (Saline Flush 2.5 Ml Monoject Prefil Syrin) 2.5 ml IV Q8 [facility] Stop: 09/29/19 21:59 - Allergies Allergies/Adverse Reactions: No Known Allergies Allergy (Verified 03/01/18 21:10) Hospital Course Hospital Course: This is a 83-year-old female's with a history of the type 2 diabetes hypertension hyperlipidemia history of the TIA in the past chronic kidney disease history of the congestive heart failure present in the emergency department with a sudden onset of slurred speech and a left upper extremity weakness around 3 PM today In the emergency department patient have a CT of the head initially was done was negative and then patient symptom is pretty much improved and the ER physicians called me to admit the patient's When I saw the patient's apparently alert awake oriented x4, some mild left upper extremity weakness but order the MRI and MRA of the head with suggest the right carotid occlusion and discussed with the neurologist and transfer the patient's to the further evaluations We will discharge patient is alert awake oriented x4 no other symptoms Discussed with the patient and the daughter on the bedside regarding the patient's current conditions Patient also seen by Dr. Zheng inspector assembly locally here Order the echocardiogram but not done yet Physical Exam Vital Signs: Temp Pulse Resp BP Pulse Ox 98.2 F 85 20 173/80 H 99 08/30/19 15:10 08/30/19 18:28 08/30/19 18:28 08/30/19 18:28 08/30/19 18:28 Intake & Output 08/29/19 08/30/19 08/31/19 06:59 06:59 06:59 Weight 60 kg General appearance: PRESENT: no acute distress, well-developed, well-nourished Head exam: PRESENT: atraumatic, normocephalic Eye exam: PRESENT: conjunctiva pink, EOMI, PERRLA. ABSENT: scleral icterus Ear exam: PRESENT: normal external ear exam Mouth exam: PRESENT: moist, tongue midline Neck exam: ABSENT: carotid bruit, JVD, lymphadenopathy, thyromegaly Respiratory exam: PRESENT: clear to auscultation slava. ABSENT: rales, rhonchi, wheezes Cardiovascular exam: PRESENT: RRR. ABSENT: diastolic murmur, rubs, systolic murmur Pulses: PRESENT: normal dorsalis pedis pul Vascular exam: PRESENT: normal capillary refill GI/Abdominal exam: PRESENT: normal bowel sounds, soft. ABSENT: distended, guarding, mass, organolmegaly, rebound, tenderness Rectal exam: PRESENT: deferred Extremities exam: PRESENT: full ROM. ABSENT: calf tenderness, clubbing, pedal edema Neurological exam: PRESENT: alert, awake, oriented to person, oriented to place, oriented to time, oriented to situation, CN II-XII grossly intact. ABSENT: motor sensory deficit Psychiatric exam: PRESENT: appropriate affect, normal mood. ABSENT: homicidal ideation, suicidal ideation Skin exam: PRESENT: dry, intact, warm. ABSENT: cyanosis, rash Results Laboratory Results: 08/30/19 15:30 08/30/19 15:30 08/30/19 08/30/19 08/30/19 15:30 15:30 16:45 WBC 4.7 RBC 4.42 Hgb 13.0 Hct 38.4 MCV 87 MCH 29.5 MCHC 33.9 RDW 17.8 H Plt Count 303 Seg Neutrophils % 50.2 Sodium 140.5 Potassium 4.5 Chloride 107 Carbon Dioxide 23 Anion Gap 11 BUN 27 H Creatinine 1.47 H Est GFR ( Amer) 41 L Glucose 86 Calcium 10.0 Total Bilirubin 0.7 AST 25 Alkaline Phosphatase 66 Total Protein 8.3 H Albumin 4.4 Urine Color YELLOW Urine Appearance SLIGHTLY-CLOUDY Urine pH 5.0 Ur Specific Trout 1.013 Urine Protein 100 H Urine Glucose (UA) NEGATIVE Urine Ketones NEGATIVE Urine Blood SMALL H Urine Nitrite NEGATIVE Ur Leukocyte Esterase NEGATIVE Urine WBC (Auto) 6 Urine RBC (Auto) 2 08/30/19 08/30/19 08/30/19 15:30 18:25 18:25 Creatine Kinase 104 CK-MB (CK-2) 2.38 Troponin I < 0.012 < 0.012 Impressions: Head CT 08/30/19 15:26 IMPRESSION: Chronic microvascular ischemia with no acute intracranial imaging findings. EVIDENCE OF ACUTE STROKE: NO. Chest X-Ray 08/30/19 15:42 IMPRESSION: Cardiomegaly without pulmonary edema. Head MRI 08/30/19 17:21 IMPRESSION: Positive for acute or sub-acute infarction in multiple foci in the right frontal and parietal lobes. There is occlusion of the right internal mena tid artery from the [place] - inferiorly to the margin of the images to the level of the proximal ICA. EVIDENCE OF ACUTE STROKE: YES. Multiple right-sided territories Brain MRI with MRA 08/30/19 17:24 IMPRESSION: Positive for acute or sub-acute infarction in multiple foci in the right frontal and parietal lobes. There is occlusion of the right internal mena tid artery from the [place] - inferiorly to the margin of the images to the level of the proximal ICA. EVIDENCE OF ACUTE STROKE: YES. Multiple right-sided territories Plan Time Spent: Greater than 30 Minutes - Transfer the patient's for neurology service at [facility] further evaluations for the right carotid artery occlusions with acute strokes discussed with the patient and the daughter at the bedside and update
--- NOTE | 2019-08-30 21:07 | PDOC H&P ---
History of Present Illness Admission Date/PCP: 08/30/19 17:28 TANI MARSH MD Patient complains of: slurred speech left upper extremity weakness History of Present Illness: NAREN ETRRY is a 83 year old female This is a 83-year-old female's with the previous history of the TIA history of the hypertension hyperlipidemia chronic kidney disease type 2 diabetes coronary artery disease congestive heart failure with a recent A1c is around 6 and LDL is around 110 patient is already on aspirin and high-dose statin was Plavix in the past but stopped due to the nosebleed came to the emergency department with a complaining of sudden onset of speech problems and the left upper extremity weakness In the emergency department patient's initial work-up including the CT of the head was negative and patient's chest x-ray blood work all stable ER physicians call to admit the patient's Follow the MRI and MRA of the head Patient is otherwise alert awake oriented x4 denied any chest pain no short of breath left upper extremit weakness is also improving Is also seen by the cardiology Dr. Zheng Past Medical History Cardiac Medical History: Reports: Congestive Heart Failure, Hyperlipidema, Hypertension Denies: Atrial Fibrillation, Coronary Artery Disease, DVT, Myocardial Infarction, Peripheral Vascular Disease, Pulmonary Embolism, Heart Murmur Pulmonary Medical History: Denies: Asthma, Bronchitis, Chronic Obstructive Pulmonary Disease (COPD), Intubation, Pneumonia, Respiratory Failure, Sleep Apnea, Tuberculosis Endocrine Medical History: Reports: Diabetes Mellitus Type 2 Renal/ Medical History: Reports: Chronic Kidney Disease GI Medical History: Reports: Gastroesophageal Reflux Disease Musculoskeltal Medical History: Reports: Arthritis Hematology: Reports: Anemia Past Surgical History Past Surgical History: Reports: Hysterectomy, Orthopedic Surgery - right knee replacement Social History Information Source: Patient Smoking Status: Never Smoker Frequency of Alcohol Use: None Hx Recreational Drug Use: No Hx Prescription Drug Abuse: No - Advance Directive Resuscitation Status: Full Code Family History Family History: Reviewed & Not Pertinent, DM, Hypertension Parental Family History Reviewed: Yes Children Family History Reviewed: Yes Sibling(s) Family History Reviewed.: Yes Medication/Allergy Home Medications: Bisacodyl [Dulcolax 5 mg Tablet] 5 mg PO DAILYP PRN 10/18/17 Donepezil HCl [Aricept] 5 mg PO QHS 10/18/17 Levocetirizine Dihydrochloride [Xyzal] 5 mg PO QPM 10/18/17 Metoprolol Tartrate [Lopressor 50 mg Tablet] 50 mg PO Q12 10/18/17 Nifedipine [Nifedipine ER] 30 mg PO Q12 10/18/17 Omeprazole 40 mg PO DAILY 10/18/17 Sitagliptin Phosphate [Januvia] 100 mg PO DAILY 10/18/17 Zolpidem Tartrate [Ambien 5 mg Tablet] 5 mg PO QHS 10/18/17 Aspirin [Ecotrin 81 mg EC Tablet] 81 mg PO DAILY #30 tabec 10/24/17 Ciprofloxacin HCl [Cipro 500 mg Tablet] 500 mg PO Q12 #14 tablet 10/24/17 Clopidogrel Bisulfate [Plavix 75 mg Tablet] 75 mg PO DAILY #30 tablet 10/24/17 Losartan Potassium [Cozaar 50 mg Tablet] 50 mg PO BID #60 tablet 10/24/17 Metronidazole [Flagyl 500 mg Tablet] 500 mg PO Q12 #14 tablet 10/24/17 Nifedipine [Procardia XL 30 mg Tablet] 60 mg PO Q12A #60 tab.er.24 10/24/17 Tramadol HCl [Ultram 50 mg Tablet] 50 mg PO Q8HP PRN #20 tablet 10/24/17 Allergies/Adverse Reactions: No Known Allergies Allergy (Verified 03/01/18 21:10) Review of Systems Constitutional: PRESENT: weakness. ABSENT: chills, fever(s), headache(s), weight gain, weight loss Eyes: ABSENT: visual disturbances Ears: ABSENT: hearing changes Cardiovascular: ABSENT: chest pain, dyspnea on exertion, edema, orthropnea, palpitations Respiratory: ABSENT: cough, hemoptysis Gastrointestinal: ABSENT: abdominal pain, constipation, diarrhea, hematemesis, hematochezia, nausea, vomiting Genitourinary: ABSENT: dysuria, hematuria Musculoskeletal: ABSENT: joint swelling Integumentary: ABSENT: rash, wounds Neurological: PRESENT: dizziness, numbness, weakness. ABSENT: abnormal gait, a bnormal speech, confusion, focal weakness, syncope Psychiatric: ABSENT: anxiety, depression, homidical ideation, suicidal ideation Endocrine: ABSENT: cold intolerance, heat intolerance, menstrual abnormalities, polydipsia, polyuria Hematologic/Lymphatic: ABSENT: easy bleeding, easy bruising, lymphadenopathy Physical Exam Vital Signs: Temp Pulse Resp BP Pulse Ox 98.2 F 85 20 173/80 H 99 08/30/19 15:10 08/30/19 18:28 08/30/19 18:28 08/30/19 18:28 08/30/19 18:28 Intake & Output 08/29/19 08/30/19 08/31/19 06:59 06:59 06:59 Weight 60 kg General appearance: PRESENT: no acute distress, well-developed, well-nourished Head exam: PRESENT: atraumatic, normocephalic Eye exam: PRESENT: conjunctiva pink, EOMI, PERRLA. ABSENT: scleral icterus Ear exam: PRESENT: normal external ear exam Mouth exam: PRESENT: moist, tongue midline Neck exam: PRESENT: full ROM. ABSENT: carotid bruit, JVD, lymphadenopathy, thyromegaly Respiratory exam: PRESENT: clear to auscultation slava Cardiovascular exam: PRESENT: RRR. ABSENT: diastolic murmur, rubs, systolic murmur Pulses: PRESENT: normal dorsalis pedis pul, +2 pedal pulses bilateral Vascular exam: PRESENT: normal capillary refill GI/Abdominal exam: PRESENT: normal bowel sounds, soft. ABSENT: distended, g uarding, mass, organolmegaly, rebound, tenderness Rectal exam: PRESENT: deferred Musculoskeletal exam: PRESENT: ambulatory Neurological exam: PRESENT: alert, awake, oriented to person, oriented to place, oriented to time, oriented to situation, reflexes normal, CN II-XII grossly intact, normal gait. ABSENT: motor sensory deficit Psychiatric exam: PRESENT: appropriate affect, normal mood. ABSENT: homicidal ideation, suicidal ideation Skin exam: PRESENT: dry, intact, warm. ABSENT: cyanosis, rash Results Laboratory Results: 08/30/19 15:30 08/30/19 15:30 08/30/19 08/30/19 08/30/19 15:30 15:30 16:45 WBC 4.7 RBC 4.42 Hgb 13.0 Hct 38.4 MCV 87 MCH 29.5 MCHC 33.9 RDW 17.8 H Plt Count 303 Seg Neutrophils % 50.2 Sodium 140.5 Potassium 4.5 Chloride 107 Carbon Dioxide 23 Anion Gap 11 BUN 27 H Creatinine 1.47 H Est GFR ( Amer) 41 L Glucose 86 Calcium 10.0 Total Bilirubin 0.7 AST 25 Alkaline Phosphatase 66 Total Protein 8.3 H Albumin 4.4 Urine Color YELLOW Urine Appearance SLIGHTLY-CLOUDY Urine pH 5.0 Ur Specific [place] 1.013 Urine Protein 100 H Urine Glucose (UA) NEGATIVE Urine Ketones NEGATIVE Urine Blood SMALL H Urine Nitrite NEGATIVE Ur Leukocyte Esterase NEGATIVE Urine WBC (Auto) 6 Urine RBC (Auto) 2 08/30/19 08/30/19 08/30/19 15:30 18:25 18:25 Creatine Kinase 104 CK-MB (CK-2) 2.38 Troponin I < 0.012 < 0.012 Impressions: Head CT 08/30/19 15:26 IMPRESSION: Chronic microvascular ischemia with no acute intracranial imaging findings. EVIDENCE OF ACUTE STROKE: NO. Chest X-Ray 08/30/19 15:42 IMPRESSION: Cardiomegaly without pulmonary edema. Head MRI 08/30/19 17:21 IMPRESSION: Positive for acute or sub-acute infarction in multiple foci in the right frontal and parietal lobes. There is occlusion of the right internal carotid artery from the [place] - inferiorly to the margin of the images to the level of the proximal ICA. EVIDENCE OF ACUTE STROKE: YES. Multiple right-sided territories Brain MRI with MRA 08/30/19 17:24 IMPRESSION: Positive for acute or sub-acute infarction in multiple foci in the right frontal and parietal lobes. There is occlusion of the right internal carotid artery from the [place] - inferiorly to the margin of the images to the level of the proximal ICA. EVIDENCE OF ACUTE STROKE: YES. Multiple right-sided territories Assessment & Plan - Diagnosis (1) Right carotid artery occlusion Is this a current diagnosis for this admission?: Yes Plan: Patient's MRI suggest the right sided occlusion discussed with the neurology at [facility] transfer the patient (2) Chronic kidney disease Qualifiers: Chronic kidney disease stage: stage 3 (moderate) Qualified Code(s): N18.3 - Chronic kidney disease, stage 3 (moderate) Is this a current diagnosis for this admission?: Yes Plan: Currently see her Dr. Monique baseline creatinine is 1.4 (3) Acute ischemic stroke Is this a current diagnosis for this admission?: Yes Plan: Currently in the stroke protocol (4) Congestive heart failure Qualifiers: Heart failure type: diastolic Heart failure chronicity: chronic Qualified Code(s): I50.32 - Chronic diastolic (congestive) heart failure Is this a current diagnosis for this admission?: Yes Plan: Patient have a diastolic congestive heart failure currently seen by Dr. Zheng (5) Hyperlipidemia Qualifiers: Hyperlipidemia type: unspecified Qualified Code(s): E78.5 - Hyperlipidemia, unspecified Is this a current diagnosis for this admission?: Yes Plan: Plan high-dose statin (6) Hypertension Qualifiers: Hypertension type: essential hypertension Qualified Code(s): I10 - Essential (primary) hypertension Is this a current diagnosis for this admission?: Yes Plan: Very poor control hypertension's currently follow with the nephrology Dr. 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 insulin use: without half-way use Diabetes mellitus complication status: with unspecified complications Is this a current diagnosis for this admission?: Yes Plan: Patient's A1c is well under control less than 7 - Time Time Spent: 50 to 70 Minutes Critical Time spent with patient: 35 or more minutes Medications reviewed and adjusted accordingly: Yes Anticipated discharge: [facility] Within: Other - Inpatient Certification Based on my medical assessment, after consideration of the patient's comorbidities, presenting symptoms, or acuity I expect that the services needed warrant INPATIENT care.: Yes I certify that my determination is in accordance with my understanding of Medicare's requirements for reasonable and necessary INPATIENT services [42 CFR 412.3e].: Yes Medical Necessity: Significant Comorbidiites Make Outpatient Treatment Too Risky, Need Close Monitoring Due to Risk of Patient Decompensation, Need For Continuous Telemetry Monitoring 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
[2019-08-30] MEDS ORDERED: FAMOTIDINE 20 MG TABLET PO SCH (22:00)
[2019-08-30] MEDS ORDERED: ATORVASTATIN CALCIUM 80 MG TABLET PO SCH (22:00)
--- NOTE | 2019-08-30 23:57 | PDOC CONSULTATION ---
Consultation Consult Date: 08/30/19 Attending physician:: TANI PEDERSON Provider Consulted: EVELIN GARSIA Consult reason:: Cerebrovascular accident History of Present Illness Admission Date/PCP: 08/30/19 17:28 TANI PEDERSON MD Patient complains of: Speech difficulty and possible stroke History of Present Illness: NAREN TERRY is a 83 year old female who was admitted through the emergency room. Patient was actually seen in the emergency room earlier this evening. She had symptoms of difficulty with speech and some left arm weakness. Patient was noted to have severe elevation of blood pressure. I was asked to evaluate patient. Twelve-lead EKG reviewed raised possibility of possible PAT with 2-1 conduction. Previous EKG from 2018 reviewed had shown sinus rhythm. Patient however denied any chest pain. She denied any significant shortness of breath. There is no definite history of atrial fibrillation. Past Medical History Cardiac Medical History: Reports: Congestive Heart Failure, Hyperlipidema, Hypertension Denies: Atrial Fibrillation, Coronary Artery Disease, DVT, Myocardial Infarction, Peripheral Vascular Disease, Pulmonary Embolism, Heart Murmur Pulmonary Medical History: Denies: Asthma, Bronchitis, Chronic Obstructive Pulmonary Disease (COPD), Intubation, Pneumonia, Respiratory Failure, Sleep Apnea, Tuberculosis Neurological Medical History: Reports: Other - Transient ischemic attack Endocrine Medical History: Reports: Diabetes Mellitus Type 2 Renal/ Medical History: Reports: Chronic Kidney Disease GI Medical History: Reports: Gastroesophageal Reflux Disease Musculoskeltal Medical History: Reports: Arthritis Hematology: Reports: Anemia Past Surgical History Past Surgical History: Reports: Hysterectomy, Orthopedic Surgery - right knee replacement Social History Information Source: Patient Smoking Status: Never Smoker Frequency of Alcohol Use: None Hx Recreational Drug Use: No Hx Prescription Drug Abuse: No - Advance Directive Resuscitation Status: Full Code Family History Family History: Reviewed & Not Pertinent, DM, Hypertension Parental Family History Reviewed: Yes Children Family History Reviewed: Yes Sibling(s) Family History Reviewed.: Yes Medication/Allergy Home Medications: Bisacodyl [Dulcolax 5 mg Tablet] 5 mg PO DAILYP PRN 10/18/17 Donepezil HCl [Aricept] 5 mg PO QHS 10/18/17 Levocetirizine Dihydrochloride [Xyzal] 5 mg PO QPM 10/18/17 Metoprolol Tartrate [Lopressor 50 mg Tablet] 50 mg PO Q12 10/18/17 Nifedipine [Nifedipine ER] 30 mg PO Q12 10/18/17 Omeprazole 40 mg PO DAILY 10/18/17 Sitagliptin Phosphate [Januvia] 100 mg PO DAILY 10/18/17 Zolpidem Tartrate [Ambien 5 mg Tablet] 5 mg PO QHS 10/18/17 Aspirin [Ecotrin 81 mg EC Tablet] 81 mg PO DAILY #30 tabec 10/24/17 Ciprofloxacin HCl [Cipro 500 mg Tablet] 500 mg PO Q12 #14 tablet 10/24/17 Clopidogrel Bisulfate [Plavix 75 mg Tablet] 75 mg PO DAILY #30 tablet 10/24/17 Losartan Potassium [Cozaar 50 mg Tablet] 50 mg PO BID #60 tablet 10/24/17 Metronidazole [Flagyl 500 mg Tablet] 500 mg PO Q12 #14 tablet 10/24/17 Nifedipine [Procardia XL 30 mg Tablet] 60 mg PO Q12A #60 tab.er.24 10/24/17 Tramadol HCl [Ultram 50 mg Tablet] 50 mg PO Q8HP PRN #20 tablet 10/24/17 Allergies/Adverse Reactions: No Known Allergies Allergy (Verified 03/01/18 21:10) Review of Systems Constitutional: ABSENT: chills, fever(s), headache(s), weight gain, weight loss Eyes: ABSENT: visual disturbances Ears: ABSENT: hearing changes Cardiovascular: PRESENT: edema. ABSENT: chest pain, dyspnea on exertion, orthropnea, palpitations Respiratory: ABSENT: cough, hemoptysis Gastrointestinal: ABSENT: abdominal pain, constipation, diarrhea, hematemesis, hematochezia, nausea, vomiting Genitourinary: ABSENT: dysuria, hematuria Musculoskeletal: ABSENT: joint swelling Integumentary: ABSENT: rash, wounds Neurological: PRESENT: as per HPI, abnormal gait, abnormal speech, focal weakness. ABSENT: confusion, dizziness, syncope Psychiatric: ABSENT: anxiety, depression, homidical ideation, suicidal ideation Endocrine: ABSENT: cold intolerance, heat intolerance, polydipsia, polyuria Hematologic/Lymphatic: ABSENT: easy bleeding, easy bruising Physical Exam Vital Signs: Temp Pulse Resp BP Pulse Ox 97.8 F 85 20 173/80 H 99 08/30/19 20:02 08/30/19 20:02 08/30/19 20:02 08/30/19 20:02 08/30/19 20:02 Intake & Output 08/29/19 08/30/19 08/31/19 06:59 06:59 06:59 Weight 60 kg General appearance: PRESENT: no acute distress, well-developed, well-nourished Head exam: PRESENT: atraumatic, normocephalic Eye exam: PRESENT: conjunctiva pink, EOMI, PERRLA. ABSENT: scleral icterus Ear exam: PRESENT: normal external ear exam Mouth exam: PRESENT: moist, tongue midline Neck exam: ABSENT: carotid bruit, JVD, lymphadenopathy, thyromegaly Respiratory exam: PRESENT: clear to auscultation slava. ABSENT: rales, rhonchi, wheezes Cardiovascular exam: PRESENT: RRR. ABSENT: diastolic murmur, rubs, systolic murmur Pulses: PRESENT: normal dorsalis pedis pul Vascular exam: PRESENT: normal capillary refill GI/Abdominal exam: PRESENT: normal bowel sounds, soft. ABSENT: distended, guarding, mass, organolmegaly, rebound, tenderness Rectal exam: PRESENT: deferred Extremities exam: PRESENT: full ROM. ABSENT: calf tenderness, clubbing, pedal edema Neurological exam: PRESENT: alert, awake, oriented to person, oriented to place, oriented to time, oriented to situation, CN II-XII grossly intact, other - Speech difficulty and left arm weakness. ABSENT: motor sensory deficit Psychiatric exam: PRESENT: appropriate affect, normal mood. ABSENT: homicidal ideation, suicidal ideation Skin exam: PRESENT: dry, intact, warm. ABSENT: cyanosis, rash Results Laboratory Results: 08/30/19 15:30 08/30/19 15:30 08/30/19 08/30/19 08/30/19 15:30 15:30 16:45 WBC 4.7 RBC 4.42 Hgb 13.0 Hct 38.4 MCV 87 MCH 29.5 MCHC 33.9 RDW 17.8 H Plt Count 303 Seg Neutrophils % 50.2 Sodium 140.5 Potassium 4.5 Chloride 107 Carbon Dioxide 23 Anion Gap 11 BUN 27 H Creatinine 1.47 H Est GFR ( Amer) 41 L Glucose 86 Calcium 10.0 Total Bilirubin 0.7 AST 25 Alkaline Phosphatase 66 Total Protein 8.3 H Albumin 4.4 Urine Color YELLOW Urine Appearance SLIGHTLY-CLOUDY Urine pH 5.0 Ur Specific [place] 1.013 Urine Protein 100 H Urine Glucose (UA) NEGATIVE Urine Ketones NEGATIVE Urine Blood SMALL H Urine Nitrite NEGATIVE Ur Leukocyte Esterase NEGATIVE Urine WBC (Auto) 6 Urine RBC (Auto) 2 08/30/19 08/30/19 08/30/19 15:30 18:25 18:25 Creatine Kinase 104 CK-MB (CK-2) 2.38 Troponin I < 0.012 < 0.012 EKG Comments: Probable sinus but cannot rule out PAT with 2-[address]-T wave changes noted. Impressions: Head CT 08/30/19 15:26 IMPRESSION: Chronic microvascular ischemia with no acute intracranial imaging findings. EVIDENCE OF ACUTE STROKE: NO. Chest X-Ray 08/30/19 15:42 IMPRESSION: Cardiomegaly without pulmonary edema. Head MRI 08/30/19 17:21 IMPRESSION: Positive for acute or sub-acute infarction in multiple foci in the right frontal and parietal lobes. There is occlusion of the right internal carotid artery from the [place] - inferiorly to the margin of the images to the level of the proximal ICA. EVIDENCE OF ACUTE STROKE: YES. Multiple right-sided territories Brain MRI with MRA 08/30/19 17:24 IMPRESSION: Positive for acute or sub-acute infarction in multiple foci in the right frontal and parietal lobes. There is occlusion of the right internal carotid artery from the [place] - inferiorly to the margin of the images to the level of the proximal ICA. EVIDENCE OF ACUTE STROKE: YES. 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 EKG noted to be somewhat abnormal. However I am not certain. At this point agree with antiplatelet therapy and DVT prophylaxis Lovenox. Will order a 2D echo to look at left atrial size, sometimes 2D echo might help decide abnormality of the atrial rhythm. This was therefore ordered. At this point recommend good control of blood pressure but avoid any precipitous drop. Agree with obtaining carotid Doppler, brain CTA versus MRA. We will continue to follow. Case discussed with Dr. Pederson. - Time Time Spent: 30 to 50 Minutes
[2019-08-31] MEDS ORDERED: ENOXAPARIN SODIUM INJ 40 MG/0.4 ML DISP.SYRIN SUBCUT SCH (10:00)
[2019-08-31] MEDS ORDERED: CLOPIDOGREL BISULFATE 75 MG TABLET PO SCH (10:00)
[2019-08-31] MEDS ORDERED: ASPIRIN 81 MG TABLET, ENT COATED PO SCH (10:00)
== END 2019-08-30 21:11 | disposition short-term general hospital (02) | DRG 65 ==
LOC: ER 15:09 → EH 17:28 → 3W 20:01
PROVIDERS: ADMIT Family Medicine; ATTEND Family Medicine
DX: I63.231 Cerebral infarction due to unspecified occlusion or stenosis of right carotid arteries (principal); I13.0 Hypertensive heart and chronic kidney disease with heart failure and stage 1 through stage 4 chronic kidney disease, or unspecified chronic kidney disease; G83.24 Monoplegia of upper limb affecting left nondominant side; R47.9 Unspecified speech disturbances; R29.700 NIHSS score 0; E11.22 Type 2 diabetes mellitus with diabetic chronic kidney disease; N18.9 Chronic kidney disease, unspecified; I50.9 Heart failure, unspecified; E78.5 Hyperlipidemia, unspecified; K21.9 Gastro-esophageal reflux disease without esophagitis; M19.90 Unspecified osteoarthritis, unspecified site; Z96.651 Presence of right artificial knee joint; Z90.710 Acquired absence of both cervix and uterus; Z79.82 Long term (current) use of aspirin; Z79.899 Other long term (current) drug therapy; Z83.3 Family history of diabetes mellitus; Z82.49 Family history of ischemic heart disease and other diseases of the circulatory system
CPT/HCPCS: 36415; 70450; 70544; 70551; 71045; 80053; 81001; 82550; 82553; 82962; 84484; 85025; 85610; 85730; 93005; 93010; 93880; 99291